=== PATIENT | male | born 1975 | race Caucasian/White ===

== ENCOUNTER 2021-10-09 09:38 | Emergency (ER) | payer SELFPAY ==
[2021-10-09 09:47] VITALS: BP 148/92; PULSE 88; RESP 15; TEMP 36.4; O2SAT 100; BMI 25.1
--- NOTE | 2021-10-09 09:52 | XRR_ITS ---
PROCEDURE INFORMATION: Exam: XR Left Ankle Exam date and time: 10/09/2021 10:03 AM Age: 46 years old Clinical indication: Injury or trauma; Fall; Blunt trauma; Ankle; Left TECHNIQUE: Imaging protocol: Radiologic exam of the Left ankle. Views: 3 or more views. AP Oblique Lateral COMPARISON: No relevant prior studies available. FINDINGS: Bones/joints: Some osseous irregularity is seen in the posterior aspect of the distal tibia on the lateral view, which may represent a nondisplaced fracture or sequela of old trauma. Recommend correlation with clinical findings. There are no medial or lateral malleolar fractures seen. Comminuted mid calcaneus fracture is seen with extension into the mid subtalar joint. There is [address] may be performed for complete assessment. The tibiotalar joint appears unremarkable. The mortise is normal. The distal tibia-fibular alignment is unremarkable. Soft tissues: There is mild hindfoot region soft tissue swelling, lateral greater than medial. There are no radiopaque foreign bodies. XR/XR ankle LT min 3V* [id number] IMPRESSION: 1. Comminuted mid calcaneus fracture with extension into the mid subtalar joint. [address] may be performed for complete assessment. 2. Some osseous irregularity seen in the posterior aspect of the distal tibia on the lateral view, which may represent a nondisplaced fracture or sequela of old trauma. Recommend correlation with clinical findings.
--- NOTE | 2021-10-09 09:52 | XRR_ITS ---
PROCEDURE INFORMATION: Exam: XR Left Foot Exam date and time: 10/09/2021 10:03 AM Age: 46 years old Clinical indication: Injury or trauma; Fall; Blunt trauma; Foot; Left TECHNIQUE: Imaging protocol: Radiologic exam of the Left foot. Views: 3 or more views. AP Oblique Lateral COMPARISON: No relevant prior studies available. FINDINGS: Bones/joints: Comminuted, complex mid to posterior calcaneal fracture is seen with fracture lines extending into the mid and posterior subtalar joint regions. There is 4 mm plantar displacement/depression in the region of the mid subtalar joint. There appears to be fracture line extension into the calcaneocuboid joint. Recommend CT for further assessment. The toe interphalangeal joints, tarsometatarsal joints, metatarsophalangeal joints appear unremarkable. Curvilinear 0.15 x 0.8 cm osseous body is seen at the posterior aspect of the distal tibia, which may represent a minimally displaced fracture. Soft tissues: There is mild hindfoot region soft tissue swelling. There are no radiopaque foreign bodies. Notes: If there is further concern, recommend follow-up radiographs or MRI for complete assessment. XR/XR foot LT min 3V* [id number] IMPRESSION: 1. Comminuted, complex, displaced intra-articular calcaneal fracture, as noted above. Recommend CT for further assessment. 2. Curvilinear 0.15 x 0.8 cm osseous body seen at the posterior aspect of the distal tibia, which may represent a minimally displaced fracture.
--- NOTE | 2021-10-09 09:53 | W.ED.FALL ---
HPI - Fall General: Chief Complaint: Extremity Injury, Lower Stated Complaint: fall, ankle injury Time Seen by Provider: 10/09/21 09:49 Source: patient Mode of arrival: ambulatory Limitations: no limitations History of Present Illness: This patient presents to our emergency department because of concern about a left ankle and foot injury. He states he was standing on a ladder about 10 feet off the ground lost balance and fell to the ground. He states he landed on his feet but twisted his left ankle and foot over and it is painful to bear weight and he feels a popping sensation. He denies any other injury. He does not strike his head or suffer loss of consciousness. There was no syncope preceding his fall. He has had a prior injury to the left ankle and wore a cam boot previously but no other significant injuries. MD complaint: fall Fall from: from height (distance) (10') Place fall occurred: home Loss of consciousness: None Location of injury - extremities: Left: ankle and foot Severity: moderate Associated symptoms-after fall: Reports difficulty walking; Denies chest pain, headache(s) or neck pain Review of Systems Const: Denies: fever(s) or chills Eyes: Denies: change in vision ENMT: Denies: odynophagia, mouth pain, change in hearing or nasal congestion Card: Denies: chest pain, palpitations, irregular heart rhythm or syncope Resp: Denies: dyspnea GI: Denies: nausea, vomiting or diarrhea : Denies: flank pain, difficulty urinating or dysuria Musc: Denies: neck pain or back pain Skin/Breast: Denies: rash or skin tenderness Neuro: Reports: difficulty walking; Denies: headache(s), numbness in extremities or weakness in extremities [place]/Lymph: Denies: easy bruising or easy bleeding Physical Exam Narrative: EXAM NARRATIVE: Patient is alert makes good eye contact speech is goal-directed. In no acute distress. Const: COMMON NORMALS: no acute distress, patient oriented x3 and alert HENMT: COMMON NORMALS: normocephalic, atraumatic and Normal nasal mucous membranes and turbinates present HEAD & SCALP: normocephalic and atraumatic FACE & SINUS: normal facial exam NOSE: Normal nasal mucous membranes and turbinates present Eye: COMMON NORMALS: Equal, round and reactive pupils present, EOMs intact bilaterally and conjunctivae normal CONJUNCTIVA: Yes conjunctivae normal PUPIL: Yes Equal, round and reactive pupils present Neck/C-Spine: CERVICAL SPINE: Yes cervical ROM normal, No Cervical spine tenderness, No step off deformity and No Paracervical spasm Chest: COMMONS NORMALS: normal inspection of the chest Resp: COMMON NORMALS: normal respiratory effort EFFORT & INSPECTION: Yes able to speak in complete sentences Cardio: COMMON NORMALS: regular rate and Peripheral pulses 2+ throughout RATE: regular rate PERIPHERAL PULSES: Peripheral pulses 2+ throughout : COMMON NORMALS: Yes no CVA tenderness BLADDER/KIDNEY EXAM: Yes no CVA tenderness Back/Pelvis: COMMON NORMALS: no CVA tenderness, thoracic and lumbar spine normal to inspection, no thoracic nor lumbar tenderness and thoraco-lumbar ROM normal PELVIS: Yes no pain with anterior-posterior compression and Yes no pain with lateral compression SACROILIAC JOINTS: Yes SI joints normal Extremity: LEFT LOWER EXTREMITY: Yes ankle joint (Tenderness over the ankle mortise region. No deformity.) and Yes foot & digits (Tender over the posterior foot. No deformity. No ecchymosis. No effusion) Neuro: COMMON NORMALS: patient oriented x3, moves all extremities, no focal motor deficits and no sensory deficits noted SENSORIUM/ORIENTATION: Yes alert Course Reevaluation(s): Reevaluation #1: X ray of the calcaneus noted. CT was ordered. Again axial spine was reexamined he Delmi has no tenderness in his axial spine. Normal range of motion. Time: 10:56 Consultations: Consultation #1: Discussed case with Dr. Alfonso who is on-call for orthopedics. We will go ahead and place in a posterior splint and send a consultation for case management for Dr. Vora to see patient and plan on operative repair per Dr. Alfonso. Time: 12:21 Vital Signs: Vital signs: Vital Signs Temperature 97.6 F 10/09/21 09:47 Pulse Rate 85 10/09/21 09:54 Respiratory Rate 15 10/09/21 09:47 Blood Pressure 161/97 10/09/21 10:31 Pulse Oximetry 100 10/09/21 09:47 MDM - Fall Medical Decision Making Patient with a fall from height approximately 10 feet with injury to his left foot. Initial plain film showed suggestion of calcaneal fracture which was confirmed by CT. Patient has no evidence clinically of any spinal involvement. He Apsley has no axial spine tenderness from cervical to sacrum. Is able to move extire spine without any pain or discomfort. Likelihood of axial spine injury is low at this point and this was shared with the patient. I also shared with the patient that he will need operative repair on a delayed fashion. We will go ahead and place him in a posterior splint and nonweightbearing status in case management will provide follow-up management. Medical Records I reviewed the patient's medical records. Lab Data Radiology Impressions Ankle X-Ray 10/09/21 09:52 IMPRESSION: 1. Comminuted mid calcaneus fracture with extension into the mid subtalar joint. [address] may be performed for complete assessment. 2. Some osseous irregularity seen in the posterior aspect of the distal tibia on the lateral view, which may represent a nondisplaced fracture or sequela of old trauma. Recommend correlation with clinical findings. Foot X-Ray 10/09/21 09:52 IMPRESSION: 1. Comminuted, complex, displaced intra-articular calcaneal fracture, as noted above. Recommend CT for further assessment. 2. Curvilinear 0.15 x 0.8 cm osseous body seen at the posterior aspect of the distal tibia, which may represent a minimally displaced fracture. Foot CT 10/09/21 10:48 IMPRESSION: 1. Comminuted calcaneal fracture with mild displacement of the fracture fragments with articular involvement at the subtalar joint. 2. Soft tissue swelling seen about the calcaneus. Discharge Plan Discharge Patient Disposition: Home Clinical Impression: Closed fracture of left calcaneus Condition: Stable Prescriptions: New hydrocodone-acetaminophen 5-325 mg tablet 1 tab PO Q8H PRN (Reason: pain) Qty: 14 0RF ondansetron 4 mg tablet,disintegrating 4 mg PO Q8H PRN (Reason: nausea and vomiting) Qty: 14 0RF Discharge Orders: Discharge ED (Routine); Ordered 10/09/21 Ordered By: Forrest Young Referrals: Milton Vora MD [Referring] - (calcaneal fracture) Jayden Arreola MD [Primary Care Provider] - Discharge Diet: Usual diet Discharge Activity: Use walker/crutches as instructed Patient Instructions: Opioid Safety Activity Restrictions/Additional Instructions: Do not get your splint wet. Use crutches as as you should not bear weight on your left foot. Case management will be contacting you on Monday to discuss referral to Dr. Vora the orthopedic surgeon. If you develop any increasing pain or other concerns return to this emergency department. We have provided medication for pain and nausea. Coding Level of Care Code ED Master Data Analyst for Odellg Fwd Exam Comprehensive
[2021-10-09 09:54] VITALS: PULSE 85
[2021-10-09 10:31] VITALS: BP 161/97
--- NOTE | 2021-10-09 10:48 | CTR_ITS ---
PROCEDURE INFORMATION: Exam: CT Left Lower Extremity Without Contrast, Foot Exam date and time: 10/09/2021 11:19 AM Age: 46 years old Clinical indication: Injury or trauma; Fall; Blunt trauma; Heel; Left; Additional info: Calcaneal injury TECHNIQUE: Imaging protocol: CT of the Left lower extremity without contrast was performed. Exam focused on the foot. Radiation optimization: All CT scans at this facility use at least one of these dose optimization techniques: automated exposure control; mA and/or kV adjustment per patient size (includes targeted exams where dose is matched to clinical indication); or iterative reconstruction. COMPARISON: CR (LOW EXM, ) 10/09/2021 10:03 AM RADIATION DOSE METRICS: Total DLP (mGy-cm): 148.72 FINDINGS: Bones/joints: Comminuted calcaneal fracture with mild displacement of the fracture fragments with articular involvement at the subtalar joint. Soft tissues: Soft tissue swelling seen about the calcaneus. CT/CT foot LT wo con* [id number] IMPRESSION: 1. Comminuted calcaneal fracture with mild displacement of the fracture fragments with articular involvement at the subtalar joint. 2. Soft tissue swelling seen about the calcaneus.
[2021-10-09] MEDS: ondansetron 4 MG Tablet PO (10:56)
[2021-10-09] MEDS: HYDROcodone-acetaminophen 7.5-325 mg Tablet 1 TAB PO (10:56)
[2021-10-09 12:44] VITALS: BP 124/85; PULSE 88; RESP 16; TEMP 37.1; O2SAT 98
--- NOTE | 2021-10-11 11:29 | DCPLANNER ---
Addendum entered by Danielle Arana 10/19/21 13:59: Patient had a follow up appointment scheduled for 10.12.[address] Vora at ortho - patient did attend appointment. Original Note: manager of maintenance had message to schedule a follow up appointment for patient with ortho. manager of maintenance sent patients information to the front office staff at ortho. Patients information will be printed and reviewed. Clinic will call patient with appointment information.
== END 2021-10-09 12:46 | disposition home or self-care (01) ==
PROVIDERS: Emergency Provider Emergency Medicine; PCP Family Medicine
DX: S92.002A Unspecified fracture of left calcaneus, initial encounter for closed fracture (principal); W11.XXXA Fall on and from ladder, initial encounter
CPT/HCPCS: 29515; 73610; 73630; 73700; 99285; E0114; Q0162

== ENCOUNTER 2021-10-12 14:03 | Outpatient (CLI) | payer SELFPAY | END 2021-10-12 14:04 | disposition home or self-care (01) | LOC: SPT 14:04 | PROVIDERS: PCP Family Medicine; Visit Provider Podiatrist Foot & Ankle Surgery | DX: Z46.89 Encounter for fitting and adjustment of other specified devices (principal); S92.002D Unspecified fracture of left calcaneus, subsequent encounter for fracture with routine healing; X58.XXXD Exposure to other specified factors, subsequent encounter | CPT/HCPCS: 97760; L4361 ==

== ENCOUNTER → 2021-10-28 15:28 | Outpatient (BNVA) | payer SELFPAY | PROVIDERS: PCP Family Medicine; Visit Provider Podiatrist Foot & Ankle Surgery | DX: S92.002A Unspecified fracture of left calcaneus, initial encounter for closed fracture (principal); X58.XXXA Exposure to other specified factors, initial encounter | CPT/HCPCS: 73650 ==

== ENCOUNTER → 2021-11-18 14:46 | Outpatient (BNVA) | payer SELFPAY | PROVIDERS: PCP Family Medicine; Visit Provider Podiatrist Foot & Ankle Surgery | DX: S82.392D Other fracture of lower end of left tibia, subsequent encounter for closed fracture with routine healing (principal); W11.XXXD Fall on and from ladder, subsequent encounter | CPT/HCPCS: 73650 ==

== ENCOUNTER → 2021-12-09 13:58 | Outpatient (BNVA) | payer SELFPAY | PROVIDERS: PCP Family Medicine; Visit Provider Podiatrist Foot & Ankle Surgery | DX: S82.392A Other fracture of lower end of left tibia, initial encounter for closed fracture (principal); W11.XXXA Fall on and from ladder, initial encounter; S92.002A Unspecified fracture of left calcaneus, initial encounter for closed fracture | CPT/HCPCS: 73650 ==

== ENCOUNTER 2023-04-24 14:32 | Inpatient (IN) | payer SELFPAY ==
[2023-04-24] VITALS (11 sets, daily range): BP systolic 137–189; BP diastolic 92–124; PULSE 72–121; RESP 12–18; TEMP 36.4–36.9; O2SAT 97–100; BMI 24.3
--- NOTE | 2023-04-24 14:34 | XRR_ITS ---
PROCEDURE INFORMATION: Exam: XR Chest Exam date and time: 04/24/2023 3:18 PM Age: 47 years old Clinical indication: Pain; Angina pectoris; Additional info: Cp TECHNIQUE: Imaging protocol: Radiologic exam of the chest. Views: 1 view. COMPARISON: No relevant prior studies available. FINDINGS: Lungs: Peribronchial wall thickening. No consolidation. Pleural spaces: Unremarkable. No pleural effusion. No pneumothorax. Heart/Mediastinum: Unremarkable. No cardiomegaly. Bones/joints: Unremarkable. XR/XR chest 1V portable [id number] IMPRESSION: Peribronchial wall thickening suggestive of an infectious or inflammatory bronchitis.
--- NOTE | 2023-04-24 14:34 | ECG_ITS ---
[facility] Test Date: 2023-04-24 Pat Name: Dennis Ruelas Department: Room: Gender: Male Group Work Program Director: : 1975 Requested By: Obi Bowser Order Number: [id number] Dyana MD: Mich Cooley M.D. Measurements Intervals [place] Rate: 116 P: 74 MO: 143 QRS: 65 QRSD: 93 T: 73 QT: 331 QTc: 461 Interpretive Statements SINUS TACHYCARDIA POSSIBLE LEFT ATRIAL ENLARGEMENT [-0.1mV P-WAVE IN V1/V2] SEPTAL MYOCARDIAL INFARCTION , OF INDETERMINATE AGE [40+ ms Q WAVE IN V1/V2] No previous ECG available for comparison Electronically Signed On 04-24-2023 19:29:34 LINER REROLL TENDER by Mich Cooley M.D. [id number]
[2023-04-24 15:04] LABS: Basophils # 0.1 10^3/uL (0.0-0.1); Basophils % 0.6 %; Eosinophils # 0.1 10^3/uL (0.0-0.8); Eosinophils % 1.7 %; Hematocrit 47.3 % (37-53); Lymphocytes # 2.4 10^3/uL (0.8-4.8); Lymphocytes % 30.2 %; Mean Corpuscular HGB Conc 33.4 g/dL (30-55); Mean Corpuscular Hemoglobin 30.7 pg (27-33); Mean Corpuscular Volume 91.8 fl (82-101); Mean Platelet Volume 9.5 fL (7.4-10.4); Monocytes # 0.8 10^3/uL (0.2-0.9); Monocytes % 9.9 %; Neutrophils # 4.62 10^3/uL (1.8-7.7); Neutrophils % 57.2 %; Nucleated Red Blood Cells % 0 %; Platelet Count 232 10^3/cmm (157-399); Red Blood Count 5.15 10^6/uL (3.85-5.65); White Blood Count 8.08 10^3/uL (3.29-11.43)
[2023-04-24 15:25] LABS: Troponin(5th) Baseline 972 ng/L (0-15)
--- NOTE | 2023-04-24 15:34 | ECG_ITS ---
[facility] Test Date: 2023-04-24 Pat Name: Dennis Ruelas Department: Room: Gender: Male Operations And Maintenance Technican: : 1975 Requested By: Yonis Henderson Order Number: [id number] Dyana MD: Mich Cooley M.D. Measurements Intervals [place] Rate: 111 P: 60 [place]: 142 QRS: 61 QRSD: 91 T: 75 QT: 337 QTc: 459 Interpretive Statements SINUS TACHYCARDIA POSSIBLE LEFT ATRIAL ENLARGEMENT [-0.1mV P-WAVE IN V1/V2] SEPTAL MYOCARDIAL INFARCTION , PROBABLY OLD [40+ ms Q WAVE IN V1/V2] Compared to ECG 04/24/2023 14:41:39 No significant changes Electronically Signed On 04-24-2023 19:29:42 CASH REGISTER OPERATOR by Mich Cooley M.D. [id number]
--- NOTE | 2023-04-24 15:37 | CTR_ITS ---
PROCEDURE INFORMATION: Exam: CTA Chest With Contrast Exam date and time: 04/24/2023 5:09 PM Age: 47 years old Clinical indication: Pain; Chest pressure; Additional info: Cp TECHNIQUE: Imaging protocol: Computed tomographic angiography of the chest with contrast. Exam focused on the arteries. 3D rendering (Not supervised by radiologist): MIP and/or 3D reconstructed images were created by the technologist. Radiation optimization: All CT scans at this facility use at least one of these dose optimization techniques: automated exposure control; mA and/or kV adjustment per patient size (includes targeted exams where dose is matched to clinical indication); or iterative reconstruction. Contrast material: OMNI 350; Contrast volume: 100 ml; Contrast route: INTRAVENOUS (IV); COMPARISON: CR XR chest 1V portable [id number] 04/24/2023 3:18 PM RADIATION DOSE METRICS: Total DLP (mGy-cm): 336 FINDINGS: Pulmonary arteries: Normal. No pulmonary emboli. Aorta: Unremarkable. No aortic aneurysm. No aortic dissection. Lungs: Sjun-es-rnlqzyjq emphysematous changes at the lung apices. Posterior dependent atelectasis. No consolidation. No masses. Mild peribronchial wall thickening. Pleural spaces: Unremarkable. No pneumothorax. No pleural effusion. Heart: Unremarkable. No cardiomegaly. No pericardial effusion. Lymph nodes: Unremarkable. No enlarged lymph nodes. Bones/joints: Unremarkable. No acute fracture. Soft tissues: Unremarkable. CT/CT angio chest PE protcl [id number] IMPRESSION: Mild peribronchial wall thickening/bronchitis. Apna-hi-adwwmwsa emphysematous changes at the lung apices.
--- NOTE | 2023-04-24 15:38 | ED_ITS ---
HPI - Chest Pain 2 General: Chief Complaint: Chest Pain Stated Complaint: chest pain, sob Time Seen by Provider: 04/24/23 15:31 Source: patient Mode of arrival: ambulatory Limitations: no limitations History of Present Illness: 47-year-old male states that he has been having chest pain over the last 4 to 5 days he states he was in [place] over the weekend and went to hospital told that his troponin was high but he left AMA. States continue to have some slight pain states pain is currently 3 out of 10 denies any shortness of breath he is tachycardic here denies any worsening proving factors no history of coronary artery disease he does have hypertension and is a smoker. PFSH ED 2 PFSH: Social History Smoking and tobacco/nicotine status: current every day tobacco/nicotine user Course 2 Vital Signs: Vital signs: Vital Signs Temperature 97.5 F L 04/24/23 14:45 Pulse Rate 93 04/24/23 15:50 Respiratory Rate 16 04/24/23 15:50 Blood Pressure 189/111 04/24/23 15:50 Pulse Oximetry 97 04/24/23 15:50 Oxygen Delivery Me thod Room Air 04/24/23 14:45 MDM - Chest Pain Medical Decision Making Patient presents here with chest pain does have an elevated troponin consistent with an NSTEMI. Patient's chest pain-free here CT shows no signs of PE will admit for NSTEMI start on Lovenox I did speak to the digital forensics examiner along with hospitalist Medical Records I reviewed the patient's medical records. Lab Data I reviewed the patient's lab results. 04/24/23 14:58 04/24/23 14:58 Radiology Impressions Chest X-Ray 04/24/23 14:34 IMPRESSION: Peribronchial wall thickening suggestive of an infectious or inflammatory bronchitis. Chest CTA 04/24/23 15:37 IMPRESSION: Mild peribronchial wall thickening/bronchitis. Dgph-am-ijuxkgrs emphysematous changes at the lung apices. Laboratory Results WBC 8.08 10^3/uL (3.29-11.43) 04/24/23 14:58 RBC 5.15 10^6/uL (3.85-5.65) 04/24/23 14:58 Hgb 15.80 g/dL (11.27-16.99) 04/24/23 14:58 Hct 47.3 % (37-53) 04/24/23 14:58 MCV 91.8 fl (82-101) 04/24/23 14:58 MCH 30.7 pg (27-33) 04/24/23 14:58 MCHC 33.4 g/dL (30-55) 04/24/23 14:58 RDW 14.0 % (12.1-15.1) 04/24/23 14:58 Plt Count 232 10^3/cmm (157-399) 04/24/23 14:58 MPV 9.5 fL (7.4-10.4) 04/24/23 14:58 Neut % (Auto) 57.2 % 04/24/23 14:58 Lymph % (Auto) 30.2 % 04/24/23 14:58 Pike % (Auto) 9.9 % 04/24/23 14:58 Eos % (Auto) 1.7 % 04/24/23 14:58 Baso % (Auto) 0.6 % 04/24/23 14:58 Neut # (Auto) 4.62 10^3/uL (1.8-7.7) 04/24/23 14:58 Lymph # (Auto) 2.4 10^3/uL (0.8-4.8) 04/24/23 14:58 Pike # (Auto) 0.8 10^3/uL (0.2-0.9) 04/24/23 14:58 Eos # (Auto) 0.1 10^3/uL (0.0-0.8) 04/24/23 14:58 Baso # (Auto) 0.1 10^3/uL (0.0-0.1) 04/24/23 14:58 Nucleated RBC % (auto) 0 % 04/24/23 14:58 Nucleated RBCs # 0.0 /100WBC 04/24/23 14:58 PT 12.40 SECONDS (12.1-14.9) 04/24/23 14:58 INR 0.90 (0.8-1.2) 04/24/23 14:58 Sodium 136 mmol/L (136-145) 04/24/23 14:58 Potassium 3.5 mmol/L (3.5-5.1) 04/24/23 14:58 Chloride 100 mmol/L (98-107) 04/24/23 14:58 Carbon Dioxide 21 mmol/L (22-29) L 04/24/23 14:58 Anion Gap 18.5 (5-19) 04/24/23 14:58 BUN 12 mg/dL (6-20) 04/24/23 14:58 Creatinine 0.9 mg/dL (0.7-1.2) 04/24/23 14:58 GFR Calculation 90.4 mL/min (90-130) 04/24/23 14:58 Glucose 111 mg/dL (65-115) 04/24/23 14:58 Calculated Osmolality 282 mOsm/kg (285-295) L 04/24/23 14:58 Calcium 9.0 mg/dL (8.5-10.5) 04/24/23 14:58 Total Bilirubin 0.4 mg/dL (0.15-1.2) 04/24/23 14:58 AST 26 U/L (0-40) 04/24/23 14:58 ALT 21 U/L (0-41) 04/24/23 14:58 Alkaline Phosphatase 152 U/L (40-130) H 04/24/23 14:58 Troponin T Baseline 972 ng/L (0-15) H* 04/24/23 14:58 NT-Pro-B Natriuret Pep 1422 pg/mL (0-125) H 04/24/23 14:58 Total Protein 6.9 g/dL (6.6-8.7) 04/24/23 14:58 Albumin 3.8 g/dL (3.5-5.2) 04/24/23 14:58 Globulin 3.1 g/dL (1.3-4.6) 04/24/23 14:58 All radiology interpretation(s) finalized by discharge EKG Data EKG 1: I personally reviewed and interpreted this EKG as follows: EKG interpretation date: 04/24/23 EKG interpretation time: 14:41 Interpretation: sinus tach hr [address] or t wave abnormalities qrs 93 qtc 400 EKG 2: I personally reviewed and interpreted this EKG as follows: EKG interpretation date: 04/24/23 EKG interpretation time: 15:34 Interpretation: sinus tach no st elevation qrs 91 qtc 403 EKG 3: I personally reviewed and interpreted this EKG as follows: EKG interpretation date: 04/24/23 EKG interpretation time: 16:34 Interpretation: nsr hr [address] elevation qrs 97 qtc 409 Discharge Plan Discharge Patient Disposition: Admitted As Inpatient Admit Provider: Pino Ward Clinical Impression: Non-ST elevation SC (NSTEMI) Condition: Stable Coding Level of Care Code ED Engineering Faculty for Jayla Howard
[2023-04-24 15:42] LABS: Alanine Aminotransferase 21 U/L (0-41); Albumin Level 3.8 g/dL (3.5-5.2); Alkaline Phosphatase 152 U/L (40-130); Anion Gap 18.5 (5-19); Aspartate Amino Transferase 26 U/L (0-40); Blood Urea Nitrogen 12 mg/dL (6-20); Carbon Dioxide 21 mmol/L (22-29); Chloride 100 mmol/L (98-107); Globulin 3.1 g/dL (1.3-4.6); Glomerular Filtration Rate 90.4 mL/min (90-130); Glucose 111 mg/dL (65-115); NT Pro B Type Natriuretic Pept 1422 pg/mL (0-125); Osmolality Calculated 282 mOsm/kg (285-295); Potassium 3.5 mmol/L (3.5-5.1); Sodium 136 mmol/L (136-145); Total Bilirubin 0.4 mg/dL (0.15-1.2); Total Protein 6.9 g/dL (6.6-8.7)
[2023-04-24] MEDS: labetalol 5 mg/mL SDV 20mL 10 MG IVP (15:56)
--- NOTE | 2023-04-24 16:17 | PC.PHAR ---
pt states he takes no prescription medications-pt states he only buys nexium 20mg otc states he takes 2 cap daily pt states 4 days ago he started taking aspirin 325mg daily when he started having chest pains-pt states today he took 2 tabs (650mg)of aspirin for the chest pains 04/24/23
--- NOTE | 2023-04-24 16:34 | ECG_ITS ---
[facility] Test Date: 2023-04-24 Pat Name: Dennis Ruelas Department: Room: Gender: Male Director Cardiovascular: : 1975 Requested By: Obi Bowser Order Number: [id number] Dyana MD: Mich Cooley M.D. Measurements Intervals [place] Rate: 88 P: 119 [place]: 151 QRS: 53 QRSD: 97 T: 116 QT: 364 QTc: 441 Interpretive Statements SINUS RHYTHM POSSIBLE LEFT ATRIAL ENLARGEMENT [-0.1mV P-WAVE IN V1/V2] INCOMPLETE RIGHT BUNDLE BRANCH BLOCK [90+ ms QRS DURATION, TERMINAL R IN V1/V2, 40+ ms S IN I/aVL/V4/V5/V6] SEPTAL MYOCARDIAL INFARCTION , OF INDETERMINATE AGE [40+ ms Q WAVE IN V1/V2] POSSIBLE LATERAL MYOCARDIAL INFARCTION , OF INDETERMINATE AGE [30 ms Q WAVE IN I/aVL/V5/V6] Compared to ECG 04/24/2023 15:34:30 Incomplete right bundle-branch block now present Sinus tachycardia no longer present Myocardial infarct finding still present Electronically Signed On 04-24-2023 19:37:35 CHRISTMAS TREE GROWER by Mich Cooley M.D. [id number]
[2023-04-24] MEDS: iohexol 350 mg/mL 500 mL Btl (per mL) IV (17:39)
[2023-04-24] MEDS: enoxaparin 80 mg/0.8 mL Syringe SUBCUT (18:20)
[2023-04-24 18:29] LABS: Troponin 5 2HR 998.6 ng/L (0-15); Troponin 5 2HR Delta 26.6 ABS# (0-10)
--- NOTE | 2023-04-24 19:24 | P.HP_ITS ---
Providers/Chief Complaint 2 Admitting Physician: Pino Ward Primary Care Provider: Jayden Arreola Chief Complaint: chest pain, sob History of Present Illness 47-year-old gentleman with history of pancreatitis, presented to ER after recent visit to the ER during his trip in [place] where he was having chest pain across his chest to the left shoulder and neck and right shoulder. Reports troponin was elevated during ER visit, however, he did not know anybody there and states had left the hospital prematurely before getting additional workup done. He states that he had delayed coming in initially thinking that it was his pancreatitis flaring up, but states that lipase was checked in the other hospital and was normal. He is currently having some mild nausea, denies vomiting. He is not having the severe pain he was seen before some mild residual dull ache only, centrally located. In ER he is found to have severe elevation of troponin up into the high 900s he is hypertensive, presentation with sinus tachycardia. CT angiogram chest without PE, discussed with him some finding of peribronchial thickening/bronchitis like findings. He states he has got some chronic cough with smoking, this has not been worse than usual. Review of Systems 2 Const: Denies: fever(s), chills, body aches or malaise Eyes: Denies: change in vision Card: Reports: chest pain; Denies: edema, pre-syncope or dyspnea on exertion Resp: Reports: productive cough (Chronic smoker's cough in the morning); Denies: dyspnea, change in phlegm color or hemoptysis GI: Denies: abdominal pain, nausea, vomiting, diarrhea, constipation, hematochezia or melena : Denies: flank pain, difficulty urinating, urinary frequency or hematuria Musc: Denies: back pain, joint swelling or joint redness Skin/Breast: Denies: rash or new lesions Neuro: Denies: headache(s), numbness in extremities, weakness in extremities, dizziness, confusion or seizure-like activity Medications/Allergies Home Medications Medication Instructions Recorded Confirmed Last Taken Type Cam Boot to the Left #1 ea 10/12/21 04/24/23 Unknown Rx aspirin 325 mg tablet 325 mg PO QAM 04/24/23 04/24/23 04/24/23 History 650 mg esomeprazole magnesium 20 mg 40 mg PO QAM 04/24/23 04/24/23 04/24/23 History capsule,delayed release (Nexium) Allergies Allergy/AdvReac Type Severity Reaction Status Date / Time No Known Allergies Allergy Verified 04/24/23 14:44 PFSH Acute 2 PFSH: Medical History History of biliary stent insertion Pancreatitis Surgical History Hx of cholecystectomy Social History Smoking and tobacco/nicotine status: current every day tobacco/nicotine user Alcohol intake: never Substance/Drug Use: never Marital status: Single Vitals/I&O/Wt Last Vital Signs Temp 97.5 F L 04/24/23 14:45 Pulse 93 04/24/23 15:50 Resp 16 04/24/23 15:50 BP 189/111 04/24/23 15:50 Pulse Ox 97 04/24/23 15:50 O2 Del Method Room Air 04/24/23 14:45 Weight last 48 hrs Weight 77.111 kg Physical Exam 2 Narrative: Accompanied by family including his brother, mother Const: COMMON NORMALS: patient oriented x3 and alert GENERAL APPEARANCE: c ooperative ORIENTATION/CONSCIOUSNESS: Yes awake HENMT: COMMON NORMALS: oropharynx normal Neck/C-Spine: COMMON NORMALS: no JVD Resp: COMMON NORMALS: normal respiratory effort and clear to auscultation bilaterally AUSCULTATION: clear to auscultation bilaterally Cardio: COMMON NORMALS: no JVD, regular rhythm, S1 normal heart sound present, S2 normal heart sound present and No murmurs present (Cardio) RHYTHM: regular rhythm HEART SOUNDS: S1 normal heart sound present and S2 normal heart sound present GI: COMMON NORMALS: Normal to inspection, nondistended, normoactive bowel sounds present, Soft to palpation and non-tender PALPATION: Yes Soft to palpation Extremity: COMMON NORMALS: no joint enlargement and no pedal edema Neuro: COMMON NORMALS: patient oriented x3 and moves all extremities S ENSORIUM/ORIENTATION: Yes alert Skin: COMMON NORMALS: no rashes or lesions noted GENERAL SKIN EXAM: no rashes or lesions noted Data 04/24/23 14:58 01/29/24 14:58 A&P Assessment and plan (1) Non-ST elevation SC (NSTEMI): Severely elevated troponin. Currently pain-free, dull ache still present. Nitroglycerin added as needed. Treat hypertension, received labetalol, will start metoprolol. Monitor blood pressures. Cardiac diet. N.p.o. after midnight. Reviewed vitals, CBC, INR, CMP, troponin series, NT proBNP, requesting lipase. Reviewed chest x-ray, CTA. Reviewed ER documentation, discussed with ER physician. Discussed with sole splitter. Requesting TTE. Monitor on telemetry. Complete troponin EKG series. Has received aspirin, Lovenox, continue. Add beta-ericka, statin. N.p.o. for consideration of coronary angiogram in the morning. At risk of arrhythmia, monitor on telemetry. Denies any melena, hematochezia, hematuria, or bleeding. At risk of bleeding with anticoagulation. Monitor. Reassess CBC. Continue to encourage smoking cessation. (2) Bronchitis: Possible bronchitis with parabronchial thickening. He reports some chronic morning smoker's cough, otherwise denies any worsening. Will obtain respiratory viral panel with recent travel. No leukocytosis, no fever. No antibiotic at this time. Little butyryl breathing treatments as needed. (3) Smoking addiction: Discussed smoking cessation for 4 minutes, encourage cessation with risk of cardiovascular disease, heart attack, stroke, lung disease, cancer, other complications. He has not been ready to quit yet. Discussed with him we will provide nicotine replacement should he needed due to cravings. Plan History of pancreatitis: Requesting lipase. Reports recently lipase done at [facility]rosc[facility] was not elevated. Discussed with him in case of biliary pancreatitis, stent malfunction or other problems requiring intervention this cannot be done at this hospital and would require transfer, which she states he understands. History of cholecystectomy, biliary duct stent: Reviewed liver parameters, T. bili is normal. Alk phos with some elevation 152. No right upper quadrant pain. Minimal epigastric tenderness. Attestations 2 Medical Necessity Statement*: Admission of over 2 midnights anticipated for assessment management of NSTEMI. Diagnoses Non-ST elevation SC (NSTEMI) I21.4 Bronchitis J40 Smoking addiction F17.200
[2023-04-24 19:54] LABS: Magnesium 1.9 mg/dL (1.7-2.3)
[2023-04-24 20:09] LABS: Lipase 29 U/L (13-60)
[2023-04-24] MEDS: metoprolol tartrate 25 mg Tablet PO (20:54)
[2023-04-24] MEDS: atorvastatin 40 mg Tablet PO (20:54)
[2023-04-24 20:59] LABS: Troponin 5 6HR 823.8 ng/L (0-15)
--- NOTE | 2023-04-24 21:08 | ECG_ITS ---
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 Measurements Intervals [place] Rate: 85 P: 55 ND: 159 QRS: 54 QRSD: 96 T: 66 QT: 376 QTc: 449 Interpretive Statements SINUS RHYTHM SEPTAL MYOCARDIAL INFARCTION , PROBABLY OLD [40+ ms Q WAVE IN V1/V2] Compared to ECG 04/24/2023 16:34:56 Incomplete right bundle-branch block no longer present Myocardial infarct finding still present Electronically Signed On 04-25-2023 18:34:42 UNDERCOLLAR MAKER by Beni Wong M.D. [email or web address] [email or web address] [email or web address] [id number]
[2023-04-24 21:10] LABS: Amphetamines Screen Urine Negative (Negative); Barbiturates Screen Urine Negative (Negative); Benzodiazepines Screen Urine Negative (Negative); Cocaine Screen Urine Negative (Negative); Opiate Screen Urine Negative (Negative); PCP Screen Urine Negative (Negative); THC Screen Urine Negative (Negative)
[2023-04-24 21:59] LABS: Adenovirus Not Detected (NOT DETECT); Chlamydia Pneumoniae Not Detected (NOT DETECT); Coronavirus 229E,HKU1,NL63,OC4 Not Detected (NOT DETECT); Human Metapneumovirus Not Detected (NOT DETECT); Human Rhinovirus/Enterovirus Not Detected (NOT DETECT); Influenza A Not Detected (NOT DETECT); Influenza A H1 Not Detected (NOT DETECT); Influenza A H1-2009 Not Detected (NOT DETECT); Influenza A H3 Not Detected (NOT DETECT); Influenza B Not Detected (NOT DETECT); Mycoplasma Pneumoniae Not Detected (NOT DETECT); Parainfluenza Virus Type 1 Not Detected (NOT DETECT); Parainfluenza Virus Type 2 Not Detected (NOT DETECT); Parainfluenza Virus Type 3 Not Detected (NOT DETECT); Parainfluenza Virus Type 4 Not Detected (NOT DETECT); Respiratory Syncytial Virus A Not Detected (NOT DETECT); Respiratory Syncytial Virus B Not Detected (NOT DETECT); SARS-COV-2 Not Detected (NOT DETECT)
[2023-04-25] VITALS (48 sets, daily range): BP systolic 113–169; BP diastolic 74–113; PULSE 62–89; RESP 12–19; TEMP 36.6–37.1; O2SAT 95–100
[2023-04-25 06:19] LABS: Basophils # 0.1 10^3/uL (0.0-0.1); Basophils % 0.6 %; Eosinophils # 0.1 10^3/uL (0.0-0.8); Eosinophils % 1.5 %; Hematocrit 45.9 % (37-53); Lymphocytes # 2.1 10^3/uL (0.8-4.8); Lymphocytes % 27.6 %; Mean Corpuscular HGB Conc 33.1 g/dL (30-55); Mean Corpuscular Hemoglobin 30.5 pg (27-33); Mean Corpuscular Volume 92.2 fl (82-101); Monocytes # 0.8 10^3/uL (0.2-0.9); Monocytes % 10.3 %; Neutrophils # 4.62 10^3/uL (1.8-7.7); Neutrophils % 59.6 %; Nucleated Red Blood Cells % 0 %; Platelet Count 226 10^3/cmm (157-399); Red Blood Count 4.98 10^6/uL (3.85-5.65); Red Cell Distribution Width 14.3 % (12.1-15.1); White Blood Count 7.76 10^3/uL (3.29-11.43)
[2023-04-25 06:42] LABS: Alanine Aminotransferase 23 U/L (0-41); Albumin Level 3.3 g/dL (3.5-5.2); Alkaline Phosphatase 129 U/L (40-130); Aspartate Amino Transferase 25 U/L (0-40); Blood Urea Nitrogen 11 mg/dL (6-20); Calcium 8.7 mg/dL (8.5-10.5); Carbon Dioxide 25 mmol/L (22-29); Chloride 106 mmol/L (98-107); Globulin 3.5 g/dL (1.3-4.6); Glomerular Filtration Rate 103.6 mL/min (90-130); Glucose 94 mg/dL (65-115); Osmolality Calculated 289 mOsm/kg (285-295); Sodium 140 mmol/L (136-145); Total Bilirubin 0.5 mg/dL (0.15-1.2); Total Protein 6.8 g/dL (6.6-8.7)
--- NOTE | 2023-04-25 07:13 | XACV_ITS ---
Exam Room: [facility] Ht: 178 cm Wt: 77 kg BSA: 1.96 m2 Gender: Male : 1975 Any Known Allergies: No known allergies Exam Priority: Routine Procedure(s): Procedure Description: Diagnostic procedure Procedure Description: Left Heart Catheterization Procedure Description: Miscellaneous Procedure Description: ACT Procedure Description: Coronary Angiography Diagnostic Cath Status: Urgent Diagnostic Findings * Left Main has no significant disease. * Circumflex has no significant disease. * Right Coronary Artery has no significant disease. * Procedure detail: We obtained left system images using right radial artery access. However patient went into severe radial spasm and RCA could not be engaged. We then proceeded to perform RCA angiography with right femoral artery access. Pulse was weak. However we were able to obtain access. After sheath was inserted, blood flow was very sluggish from the sheath sideport. Hand-injection was performed that showed totally occluded external iliac artery with possible dissection. We obtained access in left common femoral artery and performed RCA angiography. As patient was given heparin and ACT was elevated, we decided to suture the right common femoral artery sheath in place and remove in the recovery area once ACT is in acceptable limits. Plan for peripheral angiogram once hemostasis is obtained. Patient denies any leg pain with warm leg. Pulses are dopplerable.. * Proximal Left Anterior Descending: minimal 30% stenosis, TUAN: 3 flow. * Coronary angiography shows right dominance. Conclusions 1. Non-obstructive CAD.. 2. VT with normal coronary arteries (MINOCA). Medical management. 3. Once sheath will be removed in the recovery area, we will bring patient back for peripheral angiogram to assess right lower extremity vasculature. Currently pulses are dopplerable, no leg pain and leg is warm. Recommendations * Aggressive medical therapy with aspirin, plavix, beta ericka and statin. * Outpatient cardiology follow up in 2 weeks. Interventional RX Recommendation: medical therapy and/or counseling Diagnostic RX Recommendation: medical therapy and/or counseling Pressures Phase:Rest AO : 133 / 90 ( 108 ) @ 8:37:00 AM 131 / 84 ( 105 ) @ 8:39:00 AM 126 / 84 ( 100 ) @ 9:17:00 AM 124 / 78 ( 99 ) @ 9:20:00 AM 125 / 78 ( 100 ) @ 9:20:00 AM LV : 137 / -11 / 10 @ 9:20:00 AM 127 / -8 / 11 @ 9:20:00 AM Valves Phase:DefaultPhase AV : 1.0 @ 9:27:27 AM AV Mean Gradient: 0.0 @ 9:27:27 AM Clinical Evaluation EBL: 5mL-10mL Procedural Details Pre-Procedure Time Out. Identified patient by full name and date of as verbalized by the patient/guarantor. Does the consent match the physician's order: Yes. Accurate & Complete Informed Consent: Yes. Inpatient/Outpatient History & Physical on Chart: Yes. If H&P is completed, is and addenduem needed: No; If yes, is the addendum complete: N/A. Visualize and Verify Site with Patient/Guarantor: N/A. Relevant Radiology Images available: Yes. Pre-op teaching completed and patient verbalized understanding. The risks, benefits, and alternatives of sedation and/or procedure were discussed by physician. The patient agrees to continue. Procedure started. Physician arrived. Current Diagnosis : NSTEMI. [facility] Clinical Fraility Score: 3: Managing Well. Child Support Officer Indications: ACS > 24 hours. Chest Pain Symptom Assessment: Atypical Angina. Correct patient, site and procedure confirmed by cath team. Current diagnosis: NSTEMI. PERRLA. Strong, equal hand retail field representative bilaterally. Lungs clear x 5 lobes. IV Site on Arrival: 20 gauge in the right anticubital. IV Fluids: 0.9% NaCl at KVO. 0 mL infused prior to laborer brush clearing. Pre Procedural Pulses: right radial was 3+. Pre Procedural Pulses: bilateral dorsalis pedis was Doppled. Pre Procedural Pulses: bilateral posterior tibial was Doppled. Oxygen started at 2liters/min via nasal canula. right groin was prepped with chloroprep then draped in the usual sterile fashion. right radial was prepped with chloroprep then draped in the usual sterile fashion. Baseline sample Acquired. HR: 91 BPM. Physician scrubbed in. Immediate Pre-Procedure Time Out. Correct Patient: Yes; Correct Procedure: Yes; Correct Site: Yes; Correct Patient Position: Yes; Correct Supplies: Yes; Dried Flammable Prep: Yes; Blood Products Available: N/A;. Lidocaine 1% infiltrated to the right radial. Arterial access obtained. A 6 sri lankan TIG catheter in over wire. Multiple views taken of left coronary artery. Catheter redirected to the RCA. Catheter removed over the exchange wire. A 5 sri lankan JR4 catheter in over wire. Catheter removed over the exchange wire. A 5 sri lankan JR4 catheter in over wire. Catheter removed over the exchange wire. A TR Band was successful obtaining hemostatsis at the Right Radial artery insertion site. Lidocaine 1% infiltrated to the right groin. Arterial access obtained with micropuncture set. Contrast hand injected through the micropuncture dilator. Lidocaine 1% infiltrated to the right groin. Contrast hand injected through the sheath. Lidocaine 1% infiltrated to the left groin. Arterial access obtained with micropuncture set. Wire and needle removed. Ultrasound being used to obtain access. Arterial access obtained with micropuncture set. ACT drawn. Results 217 seconds. Therapeutic limits - pre-heparin administration 90-150 seconds and monitoring heparin during a vascular procedure >250 seconds. A 5 sri lankan JR4 catheter in over wire. Multiple views taken of right coronary artery. EDP Sample taken: LV 137/-12,10; HR: 79 BPM; SpO2: 96%. Pullback taken: LV 127/-9,11; AO 124/78(99); Mean: 0mmHg, Peak to Peak: 1mmHg, SEP: 6sec/min; HR: 77 BPM; SpO2: 96%. A Suture was successful obtaining hemostatsis at the Right Femoral artery insertion site. A Suture was successful obtaining hemostatsis at the Left Femoral artery insertion site. Catheter removed over the standard wire. Arterial sheath flushed and connected to tranducer and pressure bag with heparinized saline. PERRLA. Strong, equal hand retail field representative bilaterally. No VTE prophylaxis required. Total IV fluids: 30 mL. Post-op diagnosis: Normal Coronaries. Estimated blood loss: 5mL-10mL. Responsiveness - Normal response to verbal stimuli; alert and oriented, PERRLA. Airway - Unaffected, no intervention required; spontaneous ventilation. Circulation: W/N/L, pulses unchanged. Nausea/Vomiting: No. Vital chart was stopped. Procedure completed. Patient transferred by bed to CPRU. Access Site Site: Right Radial artery Sheath Size: 6 Fr Hemostasis Method: TR Band Hemostasis Success: Successful Site: Right Femoral artery Sheath Size: 6 Fr Hemostasis Method: Suture Hemostasis Success: Successful Site: Left Femoral artery Sheath Size: 6 Fr Hemostasis Method: Suture Hemostasis Success: Successful Procedure Medications Start: 8:19 AM Stop: 8:19 AM Medication: Versed Amount: 1 mg Route: I.V. Start: 8:19 AM Stop: 8:19 AM Medication: Fentanyl Amount: 50 mcg Route: I.V. Start: 8:31 AM Stop: 8:31 AM Medication: Versed 1 mg and Fentanyl 25 mcg Amount: 1 Route: I.V. Start: 8:33 AM Stop: 8:33 AM Medication: Nitrogylcerin Amount: 200 mcg Route: I.A. Start: 8:36 AM Stop: 8:36 AM Medication: Heparin Amount: 5000 units Start: 8:40 AM Stop: 8:40 AM Medication: Nitrogylcerin Amount: 200 mcg Route: I.A. Start: 8:42 AM Stop: 8:42 AM Medication: Versed Amount: 1 mg Route: I.V. Start: 8:42 AM Stop: 8:42 AM Medication: Fentanyl Amount: 50 mcg Route: I.V. Start: 8:47 AM Stop: 8:47 AM Medication: Verapamil Amount: 5 mg Route: I.A. Start: 9:10 AM Stop: 9:10 AM Medication: Versed Amount: 1 mg Route: I.V. Start: 9:10 AM Stop: 9:10 AM Medication: Fentanyl Amount: 25 mcg Route: I.V. Start: 9:23 AM Stop: 9:23 AM Medication: Fentanyl Amount: 25 mcg Route: I.V. I, the attending physician, have reviewed and verified all procedure medications. Yes, all medications given per verbal order History/Risk Factors Hypertension: No Dyslipidemia: No Peripheral Arterial Disease (PAD): No Myocardial Infarction (VT): No Obesity: No Renal Disease: No Tobacco Use: Current/Recent(w/in 1 year) Prior Interventions PCI: No CABG: No Valve Surgery: No Report Signatures Finalized by Beni Wong MD on 04/29/2023 04:02 PM
--- NOTE | 2023-04-25 08:02 | PM.CONSULT ---
Providers/Reason For Consult Consulting Physician/Specialty*: Beni Wong MD/ Cardiology Reason for Consult*: NSTEMI Requesting Physician: Dr Bowser Attending Physician: Pino Ward Primary Care Provider: Jayden Arreola History of Present Illness History of Present Illness Dennis Ruelas is a 47 year old male with past medical history of pancreatitis, smoking who has presented to hospital with chest pain. Over the weekend patient was in [place] and there had severe chest pain. He went to the hospital and was found to have elevated troponins. However prior to further workup or treatment he left the hospital. Yesterday he was lifting some weight and felt severe pressure with nausea. He came to the hospital. His initial troponin was over 900. It has not trended up significantly. NT proBNP is also elevated. EKG not showing acute ST-T wave changes however lateral leads have nonspecific changes. Review of Systems Const: Denies: fever(s), chills, body aches or malaise Eyes: Denies: change in vision Card: Reports: chest pain; Denies: edema, pre-syncope or dyspnea on exertion Resp: Reports: productive cough (Chronic smoker's cough in the morning); Denies: dyspnea, change in phlegm color or hemoptysis GI: Denies: abdominal pain, nausea, vomiting, diarrhea, constipation, hematochezia or melena : Denies: flank pain, difficulty urinating, urinary frequency or hematuria Musc: Denies: back pain, joint swelling or joint redness Skin/Breast: Denies: rash or new lesions Neuro: Denies: headache(s), numbness in extremities, weakness in extremities, dizziness, confusion or seizure-like activity Medications/Allergies Home Medications Medication Instructions Recorded Confirmed Last Taken Type Cam Boot to the Left #1 ea 10/12/21 04/24/23 Unknown Rx aspirin 325 mg tablet 325 mg PO QAM 04/24/23 04/24/23 04/24/23 History 650 mg esomeprazole magnesium 20 mg 40 mg PO QAM 04/24/23 04/24/23 04/24/23 History capsule,delayed release (Nexium) Allergies Allergy/AdvReac Type Severity Reaction Status Date / Time No Known Allergies Allergy Verified 04/24/23 14:44 Current Medications Generic Name Dose Route Start Last Admin Trade Name Freq PRN Reason Stop Dose Admin Atorvastatin Calcium 40 mg 04/24/23 21:00 04/24/23 20:54 Atorvastatin 40 Mg Tablet PO 40 mg BEDTIME WHIT Administration Enoxaparin Sodium 77 mg 04/25/23 06:00 04/25/23 06:01 Enoxaparin 80 Mg/0.8 Ml Syringe SUBCUT Not Given Q12H WHIT Metoprolol Tartrate 25 mg 04/24/23 21:00 04/24/23 20:54 Metoprolol Tartrate 25 Mg Tablet PO 25 mg BID@0900,2100 WHIT Administration PFSH Acute PFSH: Medical History History of biliary stent insertion Pancreatitis Surgical History Hx of cholecystectomy Social History Smoking and tobacco/nicotine status: current every day tobacco/nicotine user Alcohol intake: never Substance/Drug Use: never Marital status: Single Vitals/I&O/Wt Last Vital Signs Temp 98.3 F 04/25/23 03:24 Pulse 62 04/25/23 05:33 Resp 17 04/25/23 03:24 BP 140/90 04/25/23 03:24 Pulse Ox 98 04/25/23 03:24 O2 Del Method Room Air 04/25/23 03:24 04/24/23 04/25/23 04/25/23 22:59 06:59 14:59 Intake Total 221 / 221 0 / 221 Output Total 250 / 250 150 / 400 Balance - / -29 -150 / -179 Weight last 48 hrs Weight 170 lb 4.8 oz Weight 171 lb 9.6 oz Weight 170 lb Physical Exam Narrative: GENERAL: Patient is alert, awake and oriented x3. [] NECK: No jugular vein distension. [] HEENT: No cyanosis. No icterus. No pallor. [] HEART: Regular S1 and S2. No murmur, rub or gallop. [] LUNGS: Clear to auscultate bilaterally. [] CENTRAL NERVOUS SYSTEM: Grossly nonfocal. [] EXTREMITIES: Lower extremities with 1+ edema bilaterally. Data 04/25/23 05:28 04/25/23 05:28 A&P Assessment and plan (1) Non-ST elevation IN (NSTEMI): (2) Smoking addiction: Plan Patient has presented with findings consistent with non-ST elevation IN. Symptoms are typical with significant troponin elevation. Will proceed with coronary angiogram with possible percutaneous coronary intervention. Risks and benefits of the procedure have been discussed. Continue dual antiplatelet therapy. Continue anticoagulation Order echocardiogram. Thank you for involving us with care of this patient. We will continue to follow. Please call with questions. Consult Attestations Medical Necessity Statement: Care expected to cross 2 midnights. Coding Level of Care Code Acute Code for [facility] Fwd Diagnoses Non-ST elevation IN (NSTEMI) I21.4 Smoking addiction F17.200
--- NOTE | 2023-04-25 08:30 | W.PM.OPSUD ---
Surgery/Procedure H&P Update DATE OF PROCEDURE: April 25, 2023 DATE H&P PERFORMED: 04/25/23 H&P UPDATE INFORMATION: I have reviewed H&P completed within last 30 days, I have examined patient prior to procedure and No changes to prior documentation PREOP DIAGNOSIS: NSTEMI PRIMARY INDICATION FOR PROCEDURE: NSTEMI PLANNED PROCEDURE: Left heart cath with possible percutaneous coronary intervention PATIENT REASSESSED PRIOR TO SEDATION, WITH NO CHANGE NOTED: Yes PHYSICAL EXAM: alert, oriented x 3, clear to auscultation bilaterally and regular rate & rhythm AIRWAY EVAL/ANESTHESIA PLAN: normal airway, ASA III, Local Anesthesia, Risks, benefits & alternatives of sedation and/or procedure discussed and Patient agrees to continue as planned ADDITIONAL INFORMATION: Moderate sedation
--- NOTE | 2023-04-25 09:40 | PC.NURSE ---
Patient arrived to CPRU 4 post cardiac cath. Pt alert and oriented, breathing even and non-labored on room air. Pt denies pain. Patient has TR band to right radial, site asymptomatic. No signs of bleeding or hematoma. Pt has bilateral femoral 6fr arterial sheaths connected to pressure bags. Both sites asymptomatic, no signs of bleeding or hematomas. Pedal pulses dopplered. Verbal orders received from Dr. Wong to pull right groin sheath 30 minutes after arrival to CPRU. Pt placed on bedside compliance monitor.
--- NOTE | 2023-04-25 09:51 | PC.CHAP ---
Pastoral Care Encounter/Spiritual Assessment Type of Contact [] Declined perfume compounder visit [] Patient/Family/Request visit [] Outpatient visit [] Follow-up visit [] Physician referral [] Code/Alert [] Routine visit [] Staff referral [] Actively dying [] Patient sleeping [] Family support [] [x] Out of room [] Palliative care [] [] Receiving care in room [] Pre-surgical visit [] Trauma [] Long length of stay [] ICU visit [] Other: Relational/Emotional Strength [] Patient feels connected with others/family/visitors/staff [] Distress [] Loneliness/isolation [] Abandonment Spirituality of Patient [] Person of Crystal [] Attends Orthodox of their Crystal [] Believes in Prayer [] Reads Bible or Pentecostalism materials [] There are Spiritual issues to be addressed Air Export Agent Interventions [] Prayer [] Active listening [] Non-anxious presence [] Spiritual/emotional support [] Crisis/trauma care [] Spiritual counseling [] Bereavement support [] Provided bereavement packet [] Provided Bible/devotional materials [] Provided toy/stuffed animal, coloring book to patient or family member [] Provided Communion [] Anointing/[place] [] Salvation [] Completed spiritual assessment [] Other: Impact on Illness or Injury [] Angry [] Fearful [] Anxious [] Often cries [] Exhaustion [] Unable to work [] Unable to attend baptist [] Unable to walk/stand [] Unable to read [] Unable to drive [] Unable to eat/drink [] Unable to sleep [] Unable to be with family [] Patient intubated [] Other: Summary Time spent with patient
--- NOTE | 2023-04-25 10:25 | PC.NURSE ---
ACT drawn, results 180. Dr. Wong gave verbal orders to pull right groin sheath now.
--- NOTE | 2023-04-25 11:02 | PC.NURSE ---
Right femoral arterial sheath pulled and held manual pressure until hemostasis acheived. Right groin site is asymptomatic , soft , no signs of bleeding or hematoma. Sterile dressing applied. Reinforced bedrest status and activity restrictions, pt verbalized understanding.
--- NOTE | 2023-04-25 12:04 | XACV_ITS ---
Ht: 178 cm Wt: 77 kg BSA: 1.96 m2 Any Known Allergies: No known allergies Gender: Male : 1975 Exam Type: Invasive Peripheral Vascular Procedure(s): Procedure Description: Peripheral Cath Diagnostic Procedure Exam Priority: Routine Abdominal Diagnostic Findings Distal abdominal aorta: Patent. Lower Extremity Diagnostic Findings INDICATION: Patient had cardiac catheterization earlier today. Access was switched to right femoral artery as the radial artery went into spasm. Right external iliac artery showing either dissection versus occlusion. For completion of coronary angiogram, left common femoral artery access was obtained and picture was taken. Sheath from the right common femoral artery has been removed in the recovery area and patient brought back for peripheral angiogram to assess dissection versus occlusion of right external iliac artery and possible need for any intervention. Procedure detail: Left common femoral artery sheath was still in place. We used UF catheter to obtain lower extremity images.. Right lower extremity: Right common iliac artery is patent. Right external iliac artery is occluded with a large sized collateral reconstituting profunda/SFA. Very high bifurcation of the profunda/SFA. No evidence for dissection seen. SFA is patent to popliteal artery. Below the knee vessels not assessed.. Left lower extremity findings: Left common iliac artery is patent. Left external iliac artery is patent. Left common femoral artery is patent. Vessels below that level not assessed.. 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 Recommendations Medical therapy at this time as patient has no lifestyle limiting claudication. Hemodynamic Data Phase:Rest AO : 126.0 / 94.0 ( 110.0 ) @ 12:37:00 PM Procedure Details Findings Pre-Procedure Time Out. Identified patient by full name and date of as verbalized by the patient/guarantor. Does the consent match the physician's order: Yes. Accurate & Complete Informed Consent: Yes. Inpatient/Outpatient History & Physical on Chart: Yes. If H&P is completed, is and addenduem needed: No; If yes, is the addendum complete: N/A. Visualize and Verify Site with Patient/Guarantor: N/A. Relevant Radiology Images available: Yes. Pre-op teaching completed and patient verbalized understanding. The risks, benefits, and alternatives of sedation and/or procedure were discussed by physician. The patient agrees to continue. Procedure started. Physician arrived. Physician scrubbed in. Time out performed with cath team. Pt returned to CCL with 6Fr sheath intact to L groin. A 5F UF catheter in over wire. Abdominal aortogram performed in AP @ 10 mL/sec for a total of 30 mL. R leg runoff performed in DSA. Abdominal aortogram performed in ESPINAL @ 10 mL/sec for a total of 20 mL in DSA. Catheter out. Physician scrubbed out. Sheath(s) sutured into position with 2-0 silk and sterile 4x4's and Op-site applied over the site. No oozing or signs and symptoms of hematoma noted. Arterial sheath flushed and connected to tranducer and pressure bag with heparinized saline. Post Procedure: Pulses reassessed and unchanged. PERRLA. Strong, equal hand ventilator specialist bilaterally. No VTE prophylaxis required. Medication's Wasted: Heparin = 1000 u. Medication's Wasted: Other = Fentanyl 50 mcg. Medication's Wasted: Other = Versed 1 mg. Total IV fluids: 20 mL. Post-op diagnosis: Totally occluded external iliac with collaterals. Complications: none. Estimated blood loss: 5mL-10mL. Responsiveness - Normal response to verbal stimuli; alert and oriented, PERRLA. Airway - Unaffected, no intervention required; spontaneous ventilation. Circulation: W/N/L, pulses unchanged. Nausea/Vomiting: No. Procedure completed. Patient transferred by bed to 1st floor. Vital chart was stopped. Procedure Medications Start: 12:23 PM Stop: 12:23 PM Medication: Versed Amount: 1 mg Route: I.V. Start: 12:23 PM Stop: 12:23 PM Medication: Fentanyl Amount: 50 mcg Route: I.V. I, the attending physician, have reviewed and verified all procedure medications. Yes, all medications given per verbal order History/Risk Factors Hypertension: No Dyslipidemia: No Peripheral Arterial Disease (PAD): No Obesity: No Renal Disease: No Tobacco Use: Current/Recent(w/in 1 year) Prior Interventions PCI: No CABG: No Valve Surgery: No Report Signatures Finalized by Beni Wong MD on 04/29/2023 04:39 PM
--- NOTE | 2023-04-25 13:20 | PC.NURSE ---
received from cardiac bolt labeler at 1250.report received.pt is alert and awake and oriented x 4.deneis pain at present.sr on monitor.right wrist with tr band on and inflated.right hand is warm to touch and with brisk capillary refill.palpable radial pulse noted distal to tr band.no hematoma noted.right groin with drsg dry and intact (arterial sheath pulled in bolt labeler).no hematoma noted.left femoral artery sheath intact to pressurized system.no hematoma noted.drsg is dry and intact.right leg is warm and dry to touch.palpable dp pulse noted.pt instructed to notify staff for any bleeding,pain,numbness or for any concerns at all.pt verb understanding of instructions.
[2023-04-25] MEDS: metoprolol tartrate 25 mg Tablet PO ×2 (13:36→21:18)
[2023-04-25] MEDS: aspirin 325 mg Tablet PO (13:36)
[2023-04-25] MEDS: pantoprazole DR 40 mg Tablet PO (13:36)
--- NOTE | 2023-04-25 14:37 | PC.NURSE ---
left femoral sheath pulled at 1345.manual pressure held x 20 min.no hematoma formation noted.left leg remained warm to touch and with brisk capillary refill.palpable dp pulse noted.pt instructed in activity restrictions and instructed to notify staff for any bleeding,pain,numbness...or for any concerns at all.pt verb understanding of instructions.
--- NOTE | 2023-04-25 16:26 | P.PN_ITS ---
Subjective 2 Subjective: He reports he is doing better today. Denies any chest pain today. No fever or chills. No significant cough. Vitals/I&O/Wt Last Vital Signs Temp 98.3 F 04/25/23 03:24 Pulse 79 04/25/23 13:30 Resp 18 04/25/23 13:30 BP 169/113 04/25/23 13:30 Pulse Ox 95 04/25/23 13:30 O2 Del Method Room Air 04/25/23 03:24 04/25/23 04/25/23 04/25/23 06:59 14:59 22:59 Intake Total 0 / 221 480 / 480 Output Total 150 / 400 Balance -150 / -179 480 / 480 Weight last 48 hrs Weight 77.247 kg Weight 77.836 kg Weight 77.111 kg Physical Exam 2 Const: COMMON NORMALS: patient oriented x3 and alert GENERAL APPEARANCE: c ooperative ORIENTATION/CONSCIOUSNESS: Yes awake HENMT: COMMON NORMALS: oropharynx normal Neck/C-Spine: COMMON NORMALS: no JVD Resp: COMMON NORMALS: normal respiratory effort and clear to auscultation bilaterally AUSCULTATION: clear to auscultation bilaterally Cardio: COMMON NORMALS: no JVD, regular rhythm, S1 normal heart sound present, S2 normal heart sound present and No murmurs present (Cardio) RHYTHM: regular rhythm HEART SOUNDS: S1 normal heart sound present and S2 normal heart sound present GI: COMMON NORMALS: Normal to inspection, nondistended, normoactive bowel sounds present, Soft to palpation and non-tender PALPATION: Yes Soft to palpation Extremity: COMMON NORMALS: no joint enlargement and no pedal edema Neuro: COMMON NORMALS: patient oriented x3 and moves all extremities S ENSORIUM/ORIENTATION: Yes alert Skin: COMMON NORMALS: no rashes or lesions noted GENERAL SKIN EXAM: no rashes or lesions noted Data 04/25/23 05:28 04/25/23 05:28 A&P Assessment and plan (1) Non-ST elevation DC (NSTEMI): Status post coronary angiogram. Discussed with cardiology. Reviewed cardiology note. As he has discussed with cardiology, no significant coronary disease is noted on angiogram. Entirely clear cause of his troponin ovation, possibly transient clot which is dissipated versus as discussed with him possibility of microvascular disease, or possibly myocarditis with some noted peribronchial thickening, possibly recent viral illness. Reviewed troponin series. Troponin noted to be decreasing, 6 hours down to 823. He is chest pain-free. Blood pressure is doing better. Tachycardia resolved. Monitor today. Reassess condition. Continue aspirin, Plavix per cardiology recommendation. Continue to optimize risk factors of cardiovascular disease. Monitor blood pressures. Discussed with him again smoking cessation. Reviewed vitals, CBC, CMP, troponin series,Urine drug screen, noted negative. Respiratory viral panel, noted negative. Discussed with gearcase assembler. (2) Bronchitis: Continue supportive treatment. Possible bronchitis with parabronchial thickening. He reports some chronic morning smoker's cough, otherwise denies any worsening. Will obtain respiratory viral panel with recent travel. No leukocytosis, no fever. No antibiotic at this time. Little butyryl breathing treatments as needed. (3) Smoking addiction: Continue to encourage cessation Discussed smoking cessation for 4 minutes, encourage cessation with risk of cardiovascular disease, heart attack, stroke, lung disease, cancer, other complications. He has not been ready to quit yet. Discussed with him we will provide nicotine replacement should he needed due to cravings. Plan History of pancreatitis: Requesting lipase. Reports recently lipase done at uroscopy was not elevated. Discussed with him in case of biliary pancreatitis, stent malfunction or other problems requiring intervention this cannot be done at this hospital and would require transfer, which she states he understands. History of cholecystectomy, biliary duct stent: Reviewed liver parameters, T. bili is normal. Alk phos with some elevation 152. No right upper quadrant pain. Minimal epigastric tenderness. Attestations 2 Medical Necessity Statement*: Continue admission for assessment management of NSTEMI, possible myocarditis. and High MDM includes amount and/or complexity of data reviewed/ordered [ previous or external records, resulted lab(s)/test(s), ordered lab(s)/test(s) and other healthcare professional discussion] as documented Diagnoses Non-ST elevation DC (NSTEMI) I21.4 Bronchitis J40 Smoking addiction F17.200
--- NOTE | 2023-04-25 19:16 | USCV_ITS ---
Dennis Ruelas Age: 47 Gender: M : 1975 Exam Date: 04/25/2023 02:51 Ordering Phys: Pino Ward MD Technologist: ZOHRA [place] [facility] [place]: NSTEMI, chest pain x 4-5 days. No history of caridac intervention per patient. BP: 141 / 106 HR: 85 Rhythm: Sinus Technical Quality: Good MEASUREMENTS (Male / Female) Normal Values 2D ECHO LV Diastolic Diameter PLAX 4.6 cm 4.2 - 5.9 / 3.9 - 5.3 cm LV Systolic Diameter PLAX 3.1 cm IVS Diastolic Thickness 1.1 cm 0.6 - 1.0 / 0.6 - 0.9 cm IVS Systolic Thickness 1.5 cm LVPW Diastolic Thickness 1.3 cm 0.6 - 1.0 / 0.6 - 0.9 cm LVPW Systolic Thickness 1.7 cm LVOT Diameter 2.0 cm LV Ejection Fraction 2D Teich 59.9 % LV Ejection Fraction MOD 2C 60.6 % LV Ejection Fraction 2C AL 60.0 % LA Diameter 2.6 cm LA Width 2.0 cm LA Height 4.1 cm RA Width 3.3 cm RA Height 3.4 cm Aorta at Sinotubular Diameter 3.1 cm IVC Diameter 1.5 cm M-MODE Aortic Annulus Diameter 3.0 cm LA Ao Ratio MM 0.9 MV E Point Septal Separation 0.4 cm DOPPLER AV Peak Velocity 106.0 cm/s LVOT Peak Velocity 75.0 cm/s AV Area Cont Eq vti 2.0 cm squared AV Area Cont Eq pk 2.1 cm squared MV Area PHT 4.3 cm squared Mitral E to A Ratio 1.3 MV E' Velocity 51.5 cm/s Mitral E to MV E' Ratio 11.3 Mitral E to LV E' Lateral Ratio 12.2 Mitral E to LV E' Septal Ratio 10.7 TR Peak Velocity 215.0 cm/s TR Peak Gradient 18.5 mmHg TV Peak E Velocity 41.0 cm/s Right Atrial Pressure 5.0 mmHg Pulmonary Artery Systolic Pressu 23.5 mmHg PV Peak Velocity 84.0 cm/s RV Acceleration Time 0.1 s RV Ejection Time 0.4 s RV AcT/ET 0.3 FINDINGS Left Ventricle Left ventricle is normal in size. LV systolic function is normal with EF of 55 to 60%. No regional wall motion abnormalities are seen. Moderate to severe left ventricular hypertrophy Right Ventricle Normal in size and function Right Atrium Normal in size Left Atrium Normal in size Mitral Valve Structurally normal mitral valve. Mild mitral regurgitation. Aortic Valve Structurally normal aortic valve. No significant stenosis or regurgitation. Tricuspid Valve Mild tricuspid regurgitation. Insufficient TR jet to calculate RVSP. Pulmonic Valve Not well visualized Pericardium Normal Aorta Normal in size IVC Appears to be normal CONCLUSIONS LV systolic function is normal with EF of 55 to 60%. Moderate severity of mitral hypertrophy Mild mitral regurgitation Mild tricuspid regurgitation No comparison studies are available. Beni Wong MD (Electronically Signed) Final Date: 25 April 2023 17:01 S
[2023-04-25] MEDS: atorvastatin 40 mg Tablet PO (21:18)
[2023-04-26] VITALS (7 sets, daily range): BP systolic 132–146; BP diastolic 86–91; PULSE 60–72; RESP 9–16; TEMP 36.4–36.5; O2SAT 93–98; BMI 23.7
[2023-04-26 03:52] LABS: Basophils % 0.5 %; Eosinophils # 0.1 10^3/uL (0.0-0.8); Eosinophils % 1.7 %; Hematocrit 45.5 % (37-53); Lymphocytes # 2.6 10^3/uL (0.8-4.8); Lymphocytes % 31.5 %; Mean Corpuscular HGB Conc 32.7 g/dL (30-55); Mean Corpuscular Hemoglobin 30.3 pg (27-33); Mean Corpuscular Volume 92.7 fl (82-101); Mean Platelet Volume 9.6 fL (7.4-10.4); Monocytes # 0.8 10^3/uL (0.2-0.9); Neutrophils # 4.78 10^3/uL (1.8-7.7); Neutrophils % 57.2 %; Nucleated Red Blood Cells % 0 %; Platelet Count 240 10^3/cmm (157-399); Red Blood Count 4.91 10^6/uL (3.85-5.65); Red Cell Distribution Width 14.4 % (12.1-15.1); White Blood Count 8.35 10^3/uL (3.29-11.43)
[2023-04-26 04:18] LABS: Alanine Aminotransferase 20 U/L (0-41); Albumin Level 3.3 g/dL (3.5-5.2); Alkaline Phosphatase 126 U/L (40-130); Anion Gap 15.2 (5-19); Aspartate Amino Transferase 22 U/L (0-40); Blood Urea Nitrogen 10 mg/dL (6-20); Calcium 8.8 mg/dL (8.5-10.5); Carbon Dioxide 24 mmol/L (22-29); Chloride 104 mmol/L (98-107); Globulin 3.1 g/dL (1.3-4.6); Glomerular Filtration Rate 90.4 mL/min (90-130); Glucose 93 mg/dL (65-115); Osmolality Calculated 287 mOsm/kg (285-295); Potassium 4.2 mmol/L (3.5-5.1); Sodium 139 mmol/L (136-145); Total Bilirubin 0.7 mg/dL (0.15-1.2); Total Protein 6.4 g/dL (6.6-8.7)
[2023-04-26] MEDS: enoxaparin 80 mg/0.8 mL Syringe 77 MG SUBCUT (06:28)
--- NOTE | 2023-04-26 07:44 | PM.PN ---
Subjective Subjective: Patient is chest pain free. Coronary angiogram showed diffuse mild CAD but no significant stenosis. Echo shows normal LV systolic function. Vitals/I&O/Wt Last Vital Signs Temp 97.6 F 04/26/23 04:03 Pulse 62 04/26/23 06:00 Resp 13 04/26/23 04:03 BP 132/88 04/26/23 04:03 Pulse Ox 93 04/26/23 04:03 O2 Del Method Room Air 04/25/23 20:50 04/25/23 04/26/23 04/26/23 22:59 06:59 14:59 Intake Total 480 / 960 Balance 480 / 960 Weight last 48 hrs Weight 165 lb 5 oz Weight 170 lb 4.8 oz Weight 171 lb 9.6 oz Weight 170 lb Physical Exam Narrative: GENERAL: Patient is alert, awake and oriented x3. [] NECK: No jugular vein distension. [] HEENT: No cyanosis. No icterus. No pallor. [] HEART: Regular S1 and S2. No murmur, rub or gallop. [] LUNGS: Clear to auscultate bilaterally. [] CENTRAL NERVOUS SYSTEM: Grossly nonfocal. [] EXTREMITIES: Lower extremities with 1+ edema bilaterally. Data 04/26/23 03:30 04/26/23 03:30 A&P Assessment and plan (1) Non-ST elevation VT (NSTEMI): (2) Smoking addiction: Plan Patient's coronary angiogram did not reveal significant severe CAD. He also had a peripheral angiogram done secondary to difficulty in access. Has total occlusion of external iliac artery on the right side with good collateral flow. Troponin elevation secondary to VT with normal coronary arteries( [facility]). Possibility of myocarditis cannot be ruled out. However patient is asymptomatic. We will medically manage him. Aspirin, Plavix and beta-ericka. He has mild plaque buildup in coronary arteries. Will recommend statin therapy. ECHO shows normal LV systolic function Thank you for involving us with care of this patient. Patient is stable to be discharged from cardiology standpoint. Please call with questions. Attestations Medical Necessity Statement*: Care expected to cross 2 midnights. Coding Level of Care Code Acute Code for [facility] Diagnoses Non-ST elevation VT (NSTEMI) I21.4 Smoking addiction F17.200
[2023-04-26] MEDS: pantoprazole DR 40 mg Tablet PO (08:47)
[2023-04-26] MEDS: aspirin 325 mg Tablet PO (08:48)
[2023-04-26] MEDS: metoprolol tartrate 25 mg Tablet PO (08:48)
[2023-04-26] MEDS: clopidogrel 75 mg Tablet PO (08:48)
--- NOTE | 2023-04-26 13:41 | P.DS_ITS ---
Discharge Providers Date of Admission: 04/24/23 17:57 Date of Discharge: April 26, 2023 Attending Provider at Admission: Pino Ward Attending Provider at Discharge: Pino Ward Primary Care Provider: Jayden Arreola Diagnoses at Discharge Discharge Diagnosis (1) Non-ST elevation [place] (NSTEMI): Status: Acute (2) Smoking addiction: Status: Acute Reason for Visit Reason for Visit: chest pain, sob Brief History: 47-year-old gentleman with history of pa ncreatitis, presented to ER after recent visit to the ER during his trip in [place] where he was having chest pain across his chest to the left shoulder and neck and right shoulder. Reports troponin was elevated during ER visit, however, he did not know anybody there and states had left the hospital prematurely before getting additional workup done. He states that he had delayed coming in initially thinking that it was his pancreatitis flaring up, but states that lipase was checked in the other hospital and was normal. He is currently having some mild nausea, denies vomiting. He is not having the severe pain he was seen before some mild residual dull ache only, centrally located. In ER he is found to have severe elevation of troponin up into the high 900s he is hypertensive, presentation with sinus tachycardia. CT angiogram chest without PE, discussed with him some finding of peribronchial thickening/bronchitis like findings. He states he has got some chronic cough with smoking, this has not been worse than usual. Hospital Course Hospital Course He was started on treatment for NSTEMI protocol, completed assessment with troponin EKG series. Troponins increased further slightly, then showed decrease. Was assessed with echocardiogram which showed normal ejection fraction, moderate LVH, mild MVR, mild TVR. He was assessed by cardiology. With recent symptoms, risk factors, underwent additional assessment with coronary angiography which showed mild plaque, no intervenable disease. It is unclear as to the etiology of his severe troponin elevation, chest pain, possibility of clot that was partially treated in [place] where he received anticoagulation, antiplatelets, possibly reversed with additional treatment here, versus other possibilities, microvascular disease with LVH, was quite hypertensive on presentation, also possibility of myocarditis. He has remained chest pain-free. Blood pressure is doing better. He is counseled on smoking cessation, continue optimization of cardiovascular risk factors, monitoring and managing his blood pressure. He was reassessed by cardiology, recommendation is to continue aspirin, Plavix, beta-ericka, he is also started on statin, follow- up with cardiology in office. Counseled to avoid overexertion, light activity, he knows to seek medical attention in case of any worsening or new concerning symptoms. Noted to have some peribronchial thickening, possible bronchitis, possible viral trigger to his etiology?, Although respiratory viral panel was negative. He is otherwise saturating well on room air, mild smoker's cough, but no other symptoms. No PE on CTA. He is noted to have some emphysematous changes, however, and again smoking cessation is highly recommended for him. Please follow-up for reassessment, as well as to assist him with quitting smoking and other management of cardiovascular risk. Physical Exam Narrative: He is doing well. Pleasant, conversant, in good spirits. Has ambulated around his room and to the restroom and encountered no issues. Free of any pain or discomfort. Feels comfortable returning home with follow-up. Const: COMMON NORMALS: patient oriented x3 and alert GENERAL APPEARANCE: cooperative ORIENTATION/CONSCIOUSNESS: Yes awake HENMT: COMMON NORMALS: oropharynx normal Neck/C-Spine: COMMON NORMALS: no JVD Resp: COMMON NORMALS: normal respiratory effort and clear to auscultation bilaterally AUSCULTATION: clear to auscultation bilaterally Cardio: COMMON NORMALS: no JVD, regular rhythm, S1 normal heart sound present, S2 normal heart sound present and No murmurs present (Cardio) RHYTHM: regular rhythm HEART SOUNDS: S1 normal heart sound present and S2 normal heart sound present GI: COMMON NORMALS: Normal to inspection, nondistended, normoactive bowel sounds present, Soft to palpation and non-tender PALPATION: Yes Soft to palpation Extremity: COMMON NORMALS: no joint enlargement and no pedal edema NARRATIVE EXTREMITY EXAM: Right hand warm, well-perfused, no swelling or mass at the right wrist access Neuro: COMMON NORMALS: patient oriented x3 and moves all extremities SENSORIUM/ORIENTATION: Yes alert Skin: COMMON NORMALS: no rashes or lesions noted GENERAL SKIN EXAM: no rashes or lesions noted Discharge Data Studies Completed and Pending Completed Studies During Hospitalization Category Date Time Status CTA chest [CT angio chest PE protcl [id number]] Stat Cat Scan 04/24/23 15:37 Completed XR chest 1V portable [id number] Stat Exams 04/24/23 14:34 Completed CV. echo complete* [id number] Routine Ultrasound 04/25/23 19:16 Completed Pending at discharge Category Date Time Status BUSINESS SOLUTIONS ARCHITECT request for service Routine Exams 04/25/23 07:13 Taken BUSINESS SOLUTIONS ARCHITECT request for service Routine Exams 04/25/23 12:04 Taken Complete Blood Count w/Auto AM LABS Lab 04/27/23 04:00 Ordered Comprehensive Metabolic Panel AM LABS Lab 04/27/23 04:00 Ordered Radiology Impressions Chest X-Ray 04/24/23 14:34 IMPRESSION: Peribronchial wall thickening suggestive of an infectious or inflammatory bronchitis. Chest CTA 04/24/23 15:37 IMPRESSION: Mild peribronchial wall thickening/bronchitis. [id number] emphysematous changes at the lung apices. Laboratory Results WBC 8.35 10^3/uL (3.29-11.43) 04/26/23 03:30 RBC 4.91 10^6/uL (3.85-5.65) 04/26/23 03:30 Hgb 14.90 g/dL (11.27-16.99) 04/26/23 03:30 Hct 45.5 % (37-53) 04/26/23 03:30 MCV 92.7 fl (82-101) 04/26/23 03:30 MCH 30.3 pg (27-33) 04/26/23 03:30 MCHC 32.7 g/dL (30-55) 04/26/23 03:30 RDW 14.4 % (12.1-15.1) 04/26/23 03:30 Plt Count 240 10^3/cmm (157-399) 04/26/23 03:30 MPV 9.6 fL (7.4-10.4) 04/26/23 03:30 Neut % (Auto) 57.2 % 04/26/23 03:30 Lymph % (Auto) 31.5 % 04/26/23 03:30 [place] % (Auto) 9.0 % 04/26/23 03:30 Eos % (Auto) 1.7 % 04/26/23 03:30 Baso % (Auto) 0.5 % 04/26/23 03:30 Neut # (Auto) 4.78 10^3/uL (1.8-7.7) 04/26/23 03:30 Lymph # (Auto) 2.6 10^3/uL (0.8-4.8) 04/26/23 03:30 [place] # (Auto) 0.8 10^3/uL (0.2-0.9) 04/26/23 03:30 Eos # (Auto) 0.1 10^3/uL (0.0-0.8) 04/26/23 03:30 Baso # (Auto) 0.0 10^3/uL (0.0-0.1) 04/26/23 03:30 Nucleated RBC % (auto) 0 % 04/26/23 03:30 Nucleated RBCs # 0.0 /100WBC 04/26/23 03:30 PT 12.40 SECONDS (12.1-14.9) 04/24/23 14:58 INR 0.90 (0.8-1.2) 04/24/23 14:58 Sodium 139 mmol/L (136-145) 04/26/23 03:30 Potassium 4.2 mmol/L (3.5-5.1) 04/26/23 03:30 Chloride 104 mmol/L (98-107) 04/26/23 03:30 Carbon Dioxide 24 mmol/L (22-29) 04/26/23 03:30 Anion Gap 15.2 (5-19) 04/26/23 03:30 BUN 10 mg/dL (6-20) 04/26/23 03:30 Creatinine 0.9 mg/dL (0.7-1.2) 04/26/23 03:30 GFR Calculation 90.4 mL/min (90-130) 04/26/23 03:30 Glucose 93 mg/dL (65-115) 04/26/23 03:30 Calculated Osmolality 287 mOsm/kg (285-295) 04/26/23 03:30 Calcium 8.8 mg/dL (8.5-10.5) 04/26/23 03:30 Magnesium 1.9 mg/dL (1.7-2.3) 04/24/23 14:58 Total Bilirubin 0.7 mg/dL (0.15-1.2) 04/26/23 03:30 AST 22 U/L (0-40) 04/26/23 03:30 ALT 20 U/L (0-41) 04/26/23 03:30 Alkaline Phosphatase 126 U/L (40-130) 04/26/23 03:30 Troponin T Baseline 972 ng/L (0-15) H* 04/24/23 14:58 Troponin T 120 Minute 998.6 ng/L (0-15) H 04/24/23 17:51 Delta Troponin T 26.6 ABS# (0-10) H* 04/24/23 17:51 Troponin T Hi Sens 6Hr 823.8 ng/L (0-15) H 04/24/23 20:29 Troponin T Hi Sens 6Hr Delta -148.2 ng/L (0-12) L 04/24/23 20:29 NT-Pro-B Natriuret Pep 1422 pg/mL (0-125) H 04/24/23 14:58 Total Protein 6.4 g/dL (6.6-8.7) L 04/26/23 03:30 Albumin 3.3 g/dL (3.5-5.2) L 04/26/23 03:30 Globulin 3.1 g/dL (1.3-4.6) 04/26/23 03:30 Lipase 29 U/L (13-60) 04/24/23 14:58 Urine Opiates Screen Negative ng/mL (Negative) 04/24/23 20:55 Ur Barbiturates Screen Negative ng/mL (Negative) 04/24/23 20:55 Ur Phencyclidine Scrn Negative ng/mL (Negative) 04/24/23 20:55 Ur Amphetamines Screen Negative ng/mL (Negative) 04/24/23 20:55 U Benzodiazepines Scrn Negative ng/mL (Negative) 04/24/23 20:55 Urine Cocaine Screen Negative ng/mL (Negative) 04/24/23 20:55 U Marijuana (THC) Screen Negative ng/mL (Negative) 04/24/23 20:55 Adenovirus (PCR) Not detected (NOT DETECT) 04/24/23 19:59 C. pneumoniae DNA (PCR) Not detected (NOT DETECT) 04/24/23 19:59 Coronavirus 229E (PCR) Not detected (NOT DETECT) 04/24/23 19:59 Human Metapneumovir PCR Not detected (NOT DETECT) 04/24/23 19:59 Influenza A (H1) PCR Not detected (NOT DETECT) 04/24/23 19:59 Influ A (H1/09) PCR Not detected (NOT DETECT) 04/24/23 19:59 Influenza A (H3) PCR Not detected (NOT DETECT) 04/24/23 19:59 Influenza Type A (PCR) Not detected (NOT DETECT) 04/24/23 19:59 Influenza Type B (PCR) Not detected (NOT DETECT) 04/24/23 19:59 M. pneumoniae (PCR) Not detected (NOT DETECT) 04/24/23 19:59 Parainfluenza 1 (PCR) Not detected (NOT DETECT) 04/24/23 19:59 Parainfluenza 2 (PCR) Not detected (NOT DETECT) 04/24/23 19:59 Parainfluenza 3 (PCR) Not detected (NOT DETECT) 04/24/23 19:59 Parainfluenza 4 (PCR) Not detected (NOT DETECT) 04/24/23 19:59 RSV Type A (PCR) Not detected (NOT DETECT) 04/24/23 19:59 RSV Type B (PCR) Not detected (NOT DETECT) 04/24/23 19:59 Entero/Rhino (PCR) Not detected (NOT DETECT) 04/24/23 19:59 SARS-CoV-2 (PCR) Not detected (NOT DETECT) 04/24/23 19:59 Vitals Last Vital Signs Temp 97.7 F 04/26/23 10:58 Pulse 72 04/26/23 10:58 Resp 9 L 04/26/23 10:58 BP 146/91 04/26/23 10:58 Pulse Ox 98 04/26/23 10:58 O2 Del Method Room Air 04/26/23 08:12 Discharge Plan Discharge Patient Disposition: Home Condition: Stable Prescriptions: New nitroglycerin 0.4 mg Tablet, Sublingual 0.4 mg sublingual Q5M PRN (Reason: Chest Pain) Qty: 25 0RF aspirin 81 mg capsule 81 mg PO DAILY Qty: 90 0RF nicotine 21 mg/24 hr patch 24 hour 1 patch transdermal DAILY Qty: 28 3RF metoprolol tartrate 25 mg Tablet 25 mg PO BID@0900,2100 Qty: 180 0RF atorvastatin 40 mg Tablet 40 mg PO BEDTIME Qty: 90 0RF clopidogrel 75 mg Tablet 75 mg PO DAILY Qty: 90 0RF nicotine (polacrilex) 4 mg lozenge 4 mg buccal Q2H PRN (Reason: nicotine cravings) Qty: 81 3RF Rx Instructions: Do not exceed 20 in a day. Continued Nexium 20 mg Capsule,Delayed Release(Dr/Ec) 40 mg PO QAM Discontinued aspirin 325 mg Tablet 325 mg PO QAM No Action (DME) Cam Boot to the Left See Rx Instructions .Route .MEDSUPPLY Qty: 1 0RF Rx Instructions: As directed Discharge Orders: Discharge Order (Routine); Ordered 04/26/23 Ordered By: Pino Ward Referrals: Betty Ge FNP [Nurse Practitioner] - 05/08/23 2:00 pm Jayden Arreola MD [Primary Care Provider] - 05/03/23 1:15 pm Patient Instructions: Metoprolol (By mouth) (Lopressor, Toprol XL), Nitroglycerin (By mouth), Nicotine (Into the mouth) (Nicorette, Commit, [facility] Nicotine,..., Aspirin (By mouth), Atorvastatin (By mouth), Clopidogrel (By mouth) (Plavix), DASH Eating Plan (DC), Heart Catheterization (DC), Post Angiogram Home Care Instructions Activity Restrictions/Additional Instructions: Follow-up with your primary doctor and cardiology for reassessment after heart attack with normal coronary arteries, possibly result clot, possibly microvascular disease, although also possible myocarditis. Avoid overexertion. Continue medications as recommended by cardiology. Follow-up for reassessment. Seek medical attention in case of any worsening or new concerning symptoms. Continue to optimize risk factors of cardiovascular disease. Please stop smoking. Monitor your blood pressure twice daily at home, save readings to bring to your appointment to help adjust her medications. Follow-up with your primary doctor for additional assessment of emphysema changes seen on CT. Again please stop smoking due to risk of progression to COPD. Discharge Attestations Time Spent in Discharge Care*: greater than 30 min Quality Metrics Clinical Quality Measures [ No reported AMI, CVA or VTE this stay] Coding Level of Care Code 11819 Total time (in minutes) for Discharge: 45 Diagnoses Non-ST elevation [place] (NSTEMI) I21.4 Smoking addiction F17.200
== END 2023-04-26 15:41 | disposition home or self-care (01) | DRG 281 ==
LOC: ER 15:39 → CSU 18:04
PROVIDERS: Internal Medicine; Admitting Provider Internal Medicine; Emergency Provider Emergency Medicine; PCP Family Medicine; Visit Provider Internal Medicine
PROC: B2111ZZ Fluoroscopy of Multiple Coronary Arteries using Low Osmolar Contrast (ICD-10-PCS; principal; 2023-04-25 09:40)
DX: I21.4 Non-ST elevation (NSTEMI) myocardial infarction (principal); I74.5 Embolism and thrombosis of iliac artery; I10 Essential (primary) hypertension; R00.0 Tachycardia, unspecified; F17.200 Nicotine dependence, unspecified, uncomplicated; Z79.82 Long term (current) use of aspirin; J41.0 Simple chronic bronchitis; I25.10 Atherosclerotic heart disease of native coronary artery without angina pectoris
CPT/HCPCS: 36415; 71045; 71275; 75625; 75710; 80053; 80306; 83690; 83735; 83880; 84484; 85025; 85347; 85610; 87486; 87581; 87633; 93005; 93306; 93458; 96372; 96374; 96376; 99152; 99153; 99285; C1769; C1887; C1894; J1644; J1650; J2250; J3010; J3490; J7030; Q9967

== ENCOUNTER 2023-05-04 17:18 | Emergency (ER) | payer MEDICAID, SELFPAY ==
--- NOTE | 2023-05-04 17:19 | XRR_ITS ---
PROCEDURE INFORMATION: Exam: XR Chest Exam date and time: 05/04/2023 5:30 PM Age: 47 years old Clinical indication: Chest wall pain; Additional info: Cp TECHNIQUE: Imaging protocol: Radiologic exam of the chest. Views: 1 view. COMPARISON: CT angio chest PE protcl [id number] 04/24/2023 5:09 PM FINDINGS: Lungs: No focal consolidation. Mild emphysematous changes. Pleural spaces: No evidence of pneumothorax. No evidence of pleural effusion. Heart/Mediastinum: Mild prominence of the right hilum raising the question of right paratracheal adenopathy. Cardiomediastinal silhouette is otherwise within normal limits. Bones/joints: No evidence of acute osseous abnormality. XR/XR chest 1V portable [id number] IMPRESSION: 1. No acute cardiopulmonary abnormality. 2. Mild prominence of the right hilum raising the question of right paratracheal adenopathy. Correlation with CT may be helpful for further detail if clinically warranted.
--- NOTE | 2023-05-04 17:23 | ECG_ITS ---
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 [email or web address]
[2023-05-04 17:24] VITALS: BP 174/93; PULSE 82; RESP 16; TEMP 36.6; O2SAT 98
--- NOTE | 2023-05-04 17:35 | ED_ITS ---
Documented by User: Jesse Potter DO 05/06/23 05:02 HPI - Chest Pain 2 General: Chief Complaint: Chest Pain Stated Complaint: chest pain,numbness Time Seen by Provider: 05/04/23 17:30 Source: patient Mode of arrival: ambulatory History of Present Illness: 47-year-old male presents emergency room with complaint of chest pain rating to his arms bilaterally began while he was at rest. He was here in the hospital in April 24 at which time he had elevation of his troponins into the 900 range but his delta Tropin. Was +26 at his 2-hour delta but his 6-hour had dropped significantly by 148. He had a coronary angiogram done which showed no coronary artery disease he was discharged home he also had a peripheral angiogram done. He had numbness and tingling in his arms and shoulders earlier today this has completely resolved by the time I had seen the patient. He has no other focal symptoms he was discharged home on atorvastatin and aspirin and clopidogrel MD complaint: chest pain Onset (ago): minute(s) Timing of current episode: episodic Onset: during rest Pain location: substernal Pain radiation: right arm, left arm, left shoulder and right shoulder Severity: moderate Quality: aching and heaviness Relieving factors: nothing Exacerbating factors: nothing Associated symptoms: Deny abdominal pain, diaphoresis, dyspnea, fever(s), leg edema, nausea, palpitations, sense of impending doom, syncope or vomiting Review of Systems 2 Const: Denies: fever(s), chills or diaphoresis Card: Reports: chest pain; Denies: palpitations or syncope Resp: Denies: dyspnea GI: Denies: abdominal pain, nausea or vomiting : Denies: dysuria, urinary frequency or urinary urgency Musc: Denies: neck pain or back pain Skin/Breast: Denies: rash PFSH ED 2 PFSH: Medical History History of biliary stent insertion Pancreatitis Surgical History Hx of cholecystectomy Social History Smoking and tobacco/nicotine status: current every day tobacco/nicotine user Alcohol intake: never Substance/Drug Use: never Marital status: Single Physical Exam 2 Const: COMMON NORMALS: no acute distress GENERAL APPEARANCE: cooperative and comfortable ORIENTATION/CONSCIOUSNESS: Yes awake, Yes oriented to person, Yes oriented to place and Yes oriented to time HENMT: COMMON NORMALS: normocephalic, atraumatic and hearing grossly normal bilaterally HEAD & SCALP: normocephalic and atraumatic Resp: COMMON NORMALS: normal respiratory effort, No retractions, No use of accessory muscles and clear to auscultation bilaterally AUSCULTATION: clear to auscultation bilaterally Cardio: COMMON NORMALS: regular rate, regular rhythm and No murmurs present (Cardio) RATE: regular rate RHYTHM: regular rhythm GI: COMMON NORMALS: Soft to palpation and No hepatosplenomegaly present A USCULTATION: Yes normoactive bowel sounds PALPATION: Yes Soft to palpation, No Tenderness to palpation present (GI), No Guarding due to palpation present (GI) and Yes No hepatosplenomegaly present Extremity: COMMON NORMALS: normal to inspection, capillary refill normal, no clubbing, cyanosis or edema, no calf tenderness and no pedal edema Neuro: SENSORIUM/ORIENTATION: Yes oriented to person, Yes oriented to place and Yes oriented to time Skin: COMMON NORMALS: no rashes or lesions noted GENERAL SKIN EXAM: no rashes or lesions noted Course 2 Vital Signs: Vital signs: Vital Signs Temperature 97.9 F 05/04/23 17:24 Pulse Rate 85 05/04/23 20:32 Respiratory Rate 19 H 05/04/23 20:32 Blood Pressure 165/96 05/04/23 20:32 Pulse Oximetry 97 05/04/23 20:32 Oxygen Delivery Me thod Room Air 05/04/23 18:44 MDM - Chest Pain Medical Decision Making Care signed out to Dr. Sow at change of shift. See final notes for diagnosis and disposition. Patient was handed off to myself during shift change. Lab work was pending. Lab work revealed white count of 13.04 hemoglobin 15.2 BUN/creatinine of 11 and 1.2, troponin baseline at 33, troponin 2-hour of 37, for delta of 4, lipase 33, chest x-ray showed no acute cardiac abnormality. Patient was complaining of some mild nausea and swelling on the right side of his neck. Patient was given 4 mg of Zofran swelling in the right side of his neck which is due to a tense muscle. Patient will be discharged home to follow-up with his PCP. Lab Data 05/04/23 17:58 05/04/23 17:58 Radiology Impressions Chest X-Ray 05/04/23 17:19 IMPRESSION: 1. No acute cardiopulmonary abnormality. 2. Mild prominence of the right hilum raising the question of right paratracheal adenopathy. Correlation with CT may be helpful for further detail if clinically warranted. Laboratory Results WBC 13.04 10^3/uL (3.29-11.43) H 05/04/23 17:58 RBC 4.96 10^6/uL (3.85-5.65) 05/04/23 17:58 Hgb 15.20 g/dL (11.27-16.99) 05/04/23 17:58 Hct 44.6 % (37-53) 05/04/23 17:58 MCV 89.9 fl (82-101) 05/04/23 17:58 MCH 30.6 pg (27-33) 05/04/23 17:58 MCHC 34.1 g/dL (30-55) 05/04/23 17:58 RDW 13.3 % (12.1-15.1) 05/04/23 17:58 Plt Count 276 10^3/cmm (157-399) 05/04/23 17:58 MPV 9.9 fL (7.4-10.4) 05/04/23 17:58 Neut % (Auto) 79.5 % 05/04/23 17:58 Lymph % (Auto) 12.3 % 05/04/23 17:58 [place] % (Auto) 6.5 % 05/04/23 17:58 Eos % (Auto) 0.8 % 05/04/23 17:58 Baso % (Auto) 0.5 % 05/04/23 17:58 Neut # (Auto) 10.36 10^3/uL (1.8-7.7) H 05/04/23 17:58 Lymph # (Auto) 1.6 10^3/uL (0.8-4.8) 05/04/23 17:58 [place] # (Auto) 0.9 10^3/uL (0.2-0.9) 05/04/23 17:58 Eos # (Auto) 0.1 10^3/uL (0.0-0.8) 05/04/23 17:58 Baso # (Auto) 0.1 10^3/uL (0.0-0.1) 05/04/23 17:58 Nucleated RBC % (auto) 0 % 05/04/23 17:58 Nucleated RBCs # 0.0 /100WBC 05/04/23 17:58 PT 12.70 SECONDS (12.1-14.9) 05/04/23 17:58 INR 0.93 (0.8-1.2) 05/04/23 17:58 Sodium 138 mmol/L (136-145) 05/04/23 17:58 Potassium 3.6 mmol/L (3.5-5.1) 05/04/23 17:58 Chloride 101 mmol/L (98-107) 05/04/23 17:58 Carbon Dioxide 26 mmol/L (22-29) 05/04/23 17:58 Anion Gap 14.6 (5-19) 05/04/23 17:58 BUN 11 mg/dL (6-20) 05/04/23 17:58 Creatinine 1.2 mg/dL (0.7-1.2) 05/04/23 17:58 GFR Calculation 64.9 mL/min (90-130) L 05/04/23 17:58 Glucose 115 mg/dL (65-115) 05/04/23 17:58 Calculated Osmolality 286 mOsm/kg (285-295) 05/04/23 17:58 Calcium 8.9 mg/dL (8.5-10.5) 05/04/23 17:58 Total Bilirubin 0.4 mg/dL (0.15-1.2) 05/04/23 17:58 AST 30 U/L (0-40) 05/04/23 17:58 ALT 40 U/L (0-41) 05/04/23 17:58 Alkaline Phosphatase 170 U/L (40-130) H 05/04/23 17:58 Troponin T Baseline 33 ng/L (0-15) H 05/04/23 17:58 Troponin T 120 Minute 37.74 ng/L (0-15) H 05/04/23 19:26 Delta Troponin T 4.74 ABS# (0-10) 05/04/23 19:26 Total Protein 6.7 g/dL (6.6-8.7) 05/04/23 17:58 Albumin 3.7 g/dL (3.5-5.2) 05/04/23 17:58 Globulin 3.0 g/dL (1.3-4.6) 05/04/23 17:58 Lipase 33 U/L (13-60) 05/04/23 17:58 Discharge Plan Discharge Patient Disposition: Home Clinical Impression: Chest pain Qualifiers: Chest pain type: unspecified Qualified Code(s): R07.9 - Chest pain, unspecified Condition: Stable Prescriptions: No Action (DME) Cam Boot to the Left See Rx Instructions .Route .MEDSUPPLY Qty: 1 0RF Rx Instructions: As directed Nexium 20 mg Capsule,Delayed Release(Dr/Ec) 40 mg PO QAM aspirin 81 mg capsule 81 mg PO DAILY Qty: 90 0RF atorvastatin 40 mg Tablet 40 mg PO BEDTIME Qty: 90 0RF clopidogrel 75 mg Tablet 75 mg PO DAILY Qty: 90 0RF nitroglycerin 0.4 mg Tablet, Sublingual 0.4 mg sublingual Q5M PRN (Reason: Chest Pain) Qty: 25 0RF metoprolol tartrate 25 mg Tablet 25 mg PO BID@0900,2100 Qty: 180 0RF nicotine 21 mg/24 hr patch 24 hour 1 patch transdermal DAILY Qty: 28 3RF nicotine (polacrilex) 4 mg lozenge 4 mg buccal Q2H PRN (Reason: nicotine cravings) Qty: 81 3RF Rx Instructions: Do not exceed 20 in a day. Discharge Orders: Discharge ED (Routine); Ordered 05/04/23 Ordered By: Omkar Sow Referrals: Jayden Arreola MD [Primary Care Provider] - 1 week Activity Restrictions/Additional Instructions: Your evaluation in ER did not reveal an acute cardiac cause of your chest pain. Your cardiac enzymes were stable. The swelling on the right side of her neck appeared to be muscle that is tense. You are given Zofran for your nausea. Please take all your medicine as directed. Please follow-up with your primary care doctor and/or senior director insight within the next 7 to 10 days for further evaluation and treatment. You may use ice and heat for your neck pain. If your pain with changes or worsens please return to the ER for further evaluation. Coding Level of Care Code ED Timber Treatment Plant Operator for Chg Fwd Documented by User: Omkar Sow DO 05/04/23 23:13 HPI - Chest Pain 2 General: Chief Complaint: Chest Pain Stated Complaint: chest pain,numbness Time Seen by Provider: 05/04/23 17:30 PFSH ED 2 PFSH: Medical History History of biliary stent insertion Pancreatitis Surgical History Hx of cholecystectomy Social History Smoking and tobacco/nicotine status: current every day tobacco/nicotine user Alcohol intake: never Substance/Drug Use: never Marital status: Single Course 2 Vital Signs: Vital signs: Vital Signs Temperature 97.9 F 05/04/23 17:24 Pulse Rate 85 05/04/23 20:32 Respiratory Rate 19 H 05/04/23 20:32 Blood Pressure 165/96 05/04/23 20:32 Pulse Oximetry 97 05/04/23 20:32 Oxygen Delivery Me thod Room Air 05/04/23 18:44 MDM - Chest Pain Medical Decision Making Patient was handed off to myself during shift change. Lab work was pending. Lab work revealed white count of 13.04 hemoglobin 15.2 BUN/creatinine of 11 and 1.2, troponin baseline at 33, troponin 2-hour of 37, for delta of 4, lipase 33, chest x-ray showed no acute cardiac abnormality. Patient was complaining of some mild nausea and swelling on the right side of his neck. Patient was given 4 mg of Zofran swelling in the right side of his neck which is due to a tense muscle. Patient will be discharged home to follow-up with his PCP. Lab Data 05/04/23 17:58 05/04/23 17:58 Radiology Impressions Chest X-Ray 05/04/23 17:19 IMPRESSION: 1. No acute cardiopulmonary abnormality. 2. Mild prominence of the right hilum raising the question of right paratracheal adenopathy. Correlation with CT may be helpful for further detail if clinically warranted. Laboratory Results WBC 13.04 10^3/uL (3.29-11.43) H 05/04/23 17:58 RBC 4.96 10^6/uL (3.85-5.65) 05/04/23 17:58 Hgb 15.20 g/dL (11.27-16.99) 05/04/23 17:58 Hct 44.6 % (37-53) 05/04/23 17:58 MCV 89.9 fl (82-101) 05/04/23 17:58 MCH 30.6 pg (27-33) 05/04/23 17:58 MCHC 34.1 g/dL (30-55) 05/04/23 17:58 RDW 13.3 % (12.1-15.1) 05/04/23 17:58 Plt Count 276 10^3/cmm (157-399) 05/04/23 17:58 MPV 9.9 fL (7.4-10.4) 05/04/23 17:58 Neut % (Auto) 79.5 % 05/04/23 17:58 Lymph % (Auto) 12.3 % 05/04/23 17:58 [place] % (Auto) 6.5 % 05/04/23 17:58 Eos % (Auto) 0.8 % 05/04/23 17:58 Baso % (Auto) 0.5 % 05/04/23 17:58 Neut # (Auto) 10.36 10^3/uL (1.8-7.7) H 05/04/23 17:58 Lymph # (Auto) 1.6 10^3/uL (0.8-4.8) 05/04/23 17:58 [place] # (Auto) 0.9 10^3/uL (0.2-0.9) 05/04/23 17:58 Eos # (Auto) 0.1 10^3/uL (0.0-0.8) 05/04/23 17:58 Baso # (Auto) 0.1 10^3/uL (0.0-0.1) 05/04/23 17:58 Nucleated RBC % (auto) 0 % 05/04/23 17:58 Nucleated RBCs # 0.0 /100WBC 05/04/23 17:58 PT 12.70 SECONDS (12.1-14.9) 05/04/23 17:58 INR 0.93 (0.8-1.2) 05/04/23 17:58 Sodium 138 mmol/L (136-145) 05/04/23 17:58 Potassium 3.6 mmol/L (3.5-5.1) 05/04/23 17:58 Chloride 101 mmol/L (98-107) 05/04/23 17:58 Carbon Dioxide 26 mmol/L (22-29) 05/04/23 17:58 Anion Gap 14.6 (5-19) 05/04/23 17:58 BUN 11 mg/dL (6-20) 05/04/23 17:58 Creatinine 1.2 mg/dL (0.7-1.2) 05/04/23 17:58 GFR Calculation 64.9 mL/min (90-130) L 05/04/23 17:58 Glucose 115 mg/dL (65-115) 05/04/23 17:58 Calculated Osmolality 286 mOsm/kg (285-295) 05/04/23 17:58 Calcium 8.9 mg/dL (8.5-10.5) 05/04/23 17:58 Total Bilirubin 0.4 mg/dL (0.15-1.2) 05/04/23 17:58 AST 30 U/L (0-40) 05/04/23 17:58 ALT 40 U/L (0-41) 05/04/23 17:58 Alkaline Phosphatase 170 U/L (40-130) H 05/04/23 17:58 Troponin T Baseline 33 ng/L (0-15) H 05/04/23 17:58 Troponin T 120 Minute 37.74 ng/L (0-15) H 05/04/23 19:26 Delta Troponin T 4.74 ABS# (0-10) 05/04/23 19:26 Total Protein 6.7 g/dL (6.6-8.7) 05/04/23 17:58 Albumin 3.7 g/dL (3.5-5.2) 05/04/23 17:58 Globulin 3.0 g/dL (1.3-4.6) 05/04/23 17:58 Lipase 33 U/L (13-60) 05/04/23 17:58 XR interpretation done by ED provider, pending radiology final review Discharge Plan Discharge Patient Disposition: Home Clinical Impression: Chest pain Qualifiers: Chest pain type: unspecified Qualified Code(s): R07.9 - Chest pain, unspecified Condition: Stable Prescriptions: No Action (DME) Cam Boot to the Left See Rx Instructions .Route .MEDSUPPLY Qty: 1 0RF Rx Instructions: As directed Nexium 20 mg Capsule,Delayed Release(Dr/Ec) 40 mg PO QAM aspirin 81 mg capsule 81 mg PO DAILY Qty: 90 0RF atorvastatin 40 mg Tablet 40 mg PO BEDTIME Qty: 90 0RF clopidogrel 75 mg Tablet 75 mg PO DAILY Qty: 90 0RF nitroglycerin 0.4 mg Tablet, Sublingual 0.4 mg sublingual Q5M PRN (Reason: Chest Pain) Qty: 25 0RF metoprolol tartrate 25 mg Tablet 25 mg PO BID@0900,2100 Qty: 180 0RF nicotine 21 mg/24 hr patch 24 hour 1 patch transdermal DAILY Qty: 28 3RF nicotine (polacrilex) 4 mg lozenge 4 mg buccal Q2H PRN (Reason: nicotine cravings) Qty: 81 3RF Rx Instructions: Do not exceed 20 in a day. Discharge Orders: Discharge ED (Routine); Ordered 05/04/23 Ordered By: Omkar Sow Referrals: Jayden Arreola MD [Primary Care Provider] - 1 week Activity Restrictions/Additional Instructions: Your evaluation in ER did not reveal an acute cardiac cause of your chest pain. Your cardiac enzymes were stable. The swelling on the right side of her neck appeared to be muscle that is tense. You are given Zofran for your nausea. Please take all your medicine as directed. Please follow-up with your primary care doctor and/or senior director insight within the next 7 to 10 days for further evaluation and treatment. You may use ice and heat for your neck pain. If your pain with changes or worsens please return to the ER for further evaluation. Coding Level of Care Code ED Timber Treatment Plant Operator for Jayla Howard
[2023-05-04 18:00] VITALS: BP 152/95; PULSE 98; O2SAT 97
[2023-05-04 18:08] LABS: Basophils # 0.1 10^3/uL (0.0-0.1); Basophils % 0.5 %; Eosinophils # 0.1 10^3/uL (0.0-0.8); Eosinophils % 0.8 %; Hematocrit 44.6 % (37-53); Lymphocytes # 1.6 10^3/uL (0.8-4.8); Lymphocytes % 12.3 %; Mean Corpuscular HGB Conc 34.1 g/dL (30-55); Mean Corpuscular Hemoglobin 30.6 pg (27-33); Mean Corpuscular Volume 89.9 fl (82-101); Mean Platelet Volume 9.9 fL (7.4-10.4); Monocytes # 0.9 10^3/uL (0.2-0.9); Monocytes % 6.5 %; Neutrophils # 10.36 10^3/uL (1.8-7.7); Neutrophils % 79.5 %; Nucleated Red Blood Cells % 0 %; Platelet Count 276 10^3/cmm (157-399); Red Blood Count 4.96 10^6/uL (3.85-5.65); Red Cell Distribution Width 13.3 % (12.1-15.1); White Blood Count 13.04 10^3/uL (3.29-11.43)
[2023-05-04] MEDS: aspirin 81 mg Chew Tablet 324 MG PO (18:08)
[2023-05-04 18:24] LABS: INR 0.93 (0.8-1.2)
[2023-05-04 18:44] VITALS: BP 152/93; PULSE 82; O2SAT 95
[2023-05-04 18:46] LABS: Troponin(5th) Baseline 33 ng/L (0-15)
[2023-05-04 18:54] LABS: Alanine Aminotransferase 40 U/L (0-41); Albumin Level 3.7 g/dL (3.5-5.2); Alkaline Phosphatase 170 U/L (40-130); Anion Gap 14.6 (5-19); Aspartate Amino Transferase 30 U/L (0-40); Blood Urea Nitrogen 11 mg/dL (6-20); Calcium 8.9 mg/dL (8.5-10.5); Carbon Dioxide 26 mmol/L (22-29); Chloride 101 mmol/L (98-107); Glomerular Filtration Rate 64.9 mL/min (90-130); Glucose 115 mg/dL (65-115); Lipase 33 U/L (13-60); Osmolality Calculated 286 mOsm/kg (285-295); Potassium 3.6 mmol/L (3.5-5.1); Sodium 138 mmol/L (136-145); Total Bilirubin 0.4 mg/dL (0.15-1.2); Total Protein 6.7 g/dL (6.6-8.7)
[2023-05-04 19:48] LABS: Troponin 5 2HR 37.74 ng/L (0-15); Troponin 5 2HR Delta 4.74 ABS# (0-10)
[2023-05-04] MEDS: ondansetron 4 MG Tablet PO (20:16)
[2023-05-04 20:32] VITALS: BP 165/96; PULSE 85; RESP 19; O2SAT 97
[2023-05-04] MEDS: metoprolol tartrate 25 mg Tablet PO (20:37)
--- NOTE | 2023-05-04 20:46 | PC.NURSE ---
Pt. was angry about being discharged home, due to the patient still experiencing numbness. Dr. Sow spoke with patient and family and they were encouraged to follow up with their primary doctor and garment inspector.
== END 2023-05-04 20:48 | disposition home or self-care (01) ==
PROVIDERS: Emergency Medicine; Emergency Provider Family Medicine; PCP Family Medicine
DX: R07.9 Chest pain, unspecified (principal); Z79.02 Long term (current) use of antithrombotics/antiplatelets; Z79.82 Long term (current) use of aspirin; Z72.0 Tobacco use
CPT/HCPCS: 36415; 71045; 80053; 83690; 84484; 85025; 85610; 93005; 99285; Q0162

== ENCOUNTER 2023-06-14 00:06 | Emergency (ER) | payer MEDICAID, SELFPAY ==
[2023-06-14] VITALS (8 sets, daily range): BP systolic 137–205; BP diastolic 97–124; PULSE 96–113; RESP 16–18; TEMP 36.6; O2SAT 96–99; BMI 23.6
[2023-06-14] MEDS: amlodipine 10 mg Tablet PO (01:08)
[2023-06-14] MEDS: hyDRALAzine 20 mg/mL INJ 1 mL 10 MG IVP ×2 (01:22→02:18)
[2023-06-14 01:29] LABS: Basophils # 0.1 10^3/uL (0.0-0.1); Basophils % 0.6 %; Eosinophils # 0.3 10^3/uL (0.0-0.8); Eosinophils % 2.8 %; Hematocrit 46.6 % (37-53); Lymphocytes # 2.7 10^3/uL (0.8-4.8); Mean Corpuscular HGB Conc 33.7 g/dL (30-55); Mean Corpuscular Hemoglobin 30.5 pg (27-33); Mean Corpuscular Volume 90.7 fl (82-101); Mean Platelet Volume 9.4 fL (7.4-10.4); Monocytes % 8.8 %; Neutrophils # 6.77 10^3/uL (1.8-7.7); Neutrophils % 62.4 %; Nucleated Red Blood Cells % 0 %; Platelet Count 214 10^3/cmm (157-399); Red Blood Count 5.14 10^6/uL (3.85-5.65); Red Cell Distribution Width 13.3 % (12.1-15.1); White Blood Count 10.85 10^3/uL (3.29-11.43)
--- NOTE | 2023-06-14 01:30 | ECG_ITS ---
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 Measurements Intervals [place] Rate: 103 P: 59 TN: 150 QRS: 28 QRSD: 94 T: 90 QT: 349 QTc: 458 Interpretive Statements SINUS TACHYCARDIA POSSIBLE LEFT ATRIAL ENLARGEMENT [-0.1mV P-WAVE IN V1/V2] SEPTAL MYOCARDIAL INFARCTION , OF INDETERMINATE AGE [40+ ms Q WAVE IN V1/V2] Compared to ECG 05/04/2023 17:23:43 Ventricular premature complex(es) no longer present Myocardial infarct finding still present Electronically Signed On 06-14-2023 16:52:18 CDT by Beni Wong M.D. [id number]
[2023-06-14 01:47] LABS: Alanine Aminotransferase 112 U/L (0-41); Albumin Level 4.2 g/dL (3.5-5.2); Alkaline Phosphatase 174 U/L (40-130); Aspartate Amino Transferase 62 U/L (0-40); Blood Urea Nitrogen 11 mg/dL (6-20); Calcium 9.1 mg/dL (8.5-10.5); Carbon Dioxide 29 mmol/L (22-29); Chloride 101 mmol/L (98-107); Creatinine Clr Calc Pharmacy 86.5853; Globulin 2.6 g/dL (1.3-4.6); Glomerular Filtration Rate 71.8 mL/min (90-130); Glucose 100 mg/dL (65-115); Osmolality Calculated 289 mOsm/kg (285-295); Sodium 140 mmol/L (136-145); Total Bilirubin 0.5 mg/dL (0.15-1.2); Total Protein 6.8 g/dL (6.6-8.7)
[2023-06-14] MEDS: LORazepam 2 mg/mL INJ 10 mL MDV 1 MG IVP (01:52)
--- NOTE | 2023-06-14 02:06 | ED_ITS ---
HPI - Anxiety 2 General: Chief Complaint: Anxiety Stated Complaint: anxiety,dizzy, lack of sleep for 3 days Time Seen by Provider: 06/14/23 00:17 History of Present Illness: 47-year-old male presents emergency depa rtment stating that he has significant anxiety since he had his heart attack March 2023. He states he has seen his primary care provider and was initially taking BuSpar but was recently switched to hydroxyzine and he states that he did take a 25 mg dose earlier today and he states he felt like it initially helped but since that time when he attempted to go to bed he started having significant anxiety and elevated blood pressure with a systolic over 200. He denies chest pain at present. He denies nausea, vomiting or shortness of breath. He states he did feel so anxious that he started feeling dizzy. He states that he has not been able to sleep very well for the previous 3 days because of his anxiety. Associated symptoms: Deny chest pain Review of Systems 2 General: Reports: 10 or more systems reviewed and unremarkable except in HPI and below Card: Reports: other (Uncontrolled hypertension); Denies: chest pain Psych: Reports: anxiety and sleeping less PFS ED 2 PFSH: Medical History (Updated 06/14/23 @ 02:13 by Yonis Henderson MD) Iliac artery occlusion, right external iliac History of biliary stent insertion Pancreatitis Surgical History Hx of cholecystectomy Social History Smoking and tobacco/nicotine status: current every day tobacco/nicotine user Alcohol intake: never Substance/Drug Use: never Marital status: Single Physical Exam 2 Narrative: EXAM NARRATIVE: Constitutional: the patient appears well nourished and of normal development. Vital signs as documented. No acute distress at present. Alert and oriented-to person, place, time and situation. Head, eyes, ears, nose, mouth, throat: Normocephalic, atraumatic. Pupils-equal, round, reactive to light. No scleral icterus. Normal-appearing external ears. Normal appearing nasal turbinates, no drainage. No obvious oral lesions, posterior oropharynx without erythema or exudates. Neck: Supple, trachea is midline, no lymphadenopathy, no jugular venous distension, thyromegaly, or carotid bruits. Carotid upstrokes are brisk bilaterally. Lungs: clear to auscultation to all lung scott. Symmetrical rise and fall of chest, no obvious signs of increased work of breathing at present. Cardiac: Sinus tachycardia, positive S1, S2. No murmurs, rubs or gallops that I can appreciate Abdomen: Soft, non-tender to palpation, normal active bowel sounds to all quadrants. No palpable masses, no organomegaly and abdominal bruits. Extremities: 2+ pulses in the upper extremities that are equal bilaterally, 2+ pulses in the lower extremities that are equal bilaterally. Non-edematous. Moves all extremities well, sensation to all extremities are noted. Skin: Warm, dry, intact. Psych: Anxious, cooperative, normal thought pattern, judgment intact. Course 2 Vital Signs: Vital signs: Vital Signs Temperature 97.9 F 06/14/23 00:12 Pulse Rate 113 H 06/14/23 02:30 Respiratory Rate 18 06/14/23 02:30 Blood Pressure 137/97 06/14/23 02:30 Pulse Oximetry 97 06/14/23 02:30 Oxygen Delivery Me thod Room Air 06/14/23 00:12 MDM - Anxiety Medical Decision Making Physical exam completed and documented I will provide the patient by mouth Norvasc and hydralazine IV given his significantly elevated blood pressure. I will also provide the patient IV Ativan for his anxiety. I discussed the importance of following up with his primary care provider and also psychiatry to get established for treatment of his anxiety. Given the patient's heart rate of 90-103 and his elevated blood pressure I suspect that he is not therapeutic on his metoprolol. His CBC and CMP are essentially unremarkable his twelve-lead EKG has no ST elevation or depression and essentially demonstrates sinus tachycardia. Medical Records I reviewed the patient's medical records. Lab Data I reviewed the patient's lab results. 06/14/23 01:23 06/14/23 01:23 Laboratory Results WBC 10.85 10^3/uL (3.29-11.43) 06/14/23: RBC 5.14 10^6/uL (3.85-5.65) 06/14/23 01:23 Hgb 15.70 g/dL (11.27-16.99) 06/14/23 01: Hct 46.6 % (37-53) 06/14/23 01:23 MCV 90.7 fl (82-101) 06/14/23 01:23 MCH 30.5 pg (27-33) 06/14/23 01: MCHC 33.7 g/dL (30-55) 06/14/23 01: RDW 13.3 % (12.1-15.1) 06/14/23 01:23 Plt Count 214 10^3/cmm (157-399) 06/14/23 01:23 MPV 9.4 fL (7.4-10.4) 06/14/23 01:23 Neut % (Auto) 62.4 % 06/14/23 01:23 Lymph % (Auto) 25.0 % 06/14/23 01:23 [place] % (Auto) 8.8 % 06/14/23 01: Eos % (Auto) 2.8 % 06/14/23 01: Baso % (Auto) 0.6 % 06/14/23 01: Neut # (Auto) 6.77 10^3/uL (1.8-7.7) 06/14/23 01:23 Lymph # (Auto) 2.7 10^3/uL (0.8-4.8) 06/14/23 01:23 [place] # (Auto) 1.0 10^3/uL (0.2-0.9) H 06/14/23 01:23 Eos # (Auto) 0.3 10^3/uL (0.0-0.8) 06/14/23 01:23 Baso # (Auto) 0.1 10^3/uL (0.0-0.1) 06/14/23 01:23 Nucleated RBC % (auto) 0 % 06/14/23 01: Nucleated RBCs # 0.0 /100WBC 06/14/23 01:23 Sodium 140 mmol/L (136-145) 06/14/23 01:23 Potassium 4.5 mmol/L (3.5-5.1) 06/14/23 01:23 Chloride 101 mmol/L (98-107) 06/14/23 01:23 Carbon Dioxide 29 mmol/L (22-29) 06/14/23 01:23 Anion Gap 14.5 (5-19) 06/14/23 01:23 BUN 11 mg/dL (6-20) 06/14/23 01:23 Creatinine 1.1 mg/dL (0.7-1.2) 06/14/23 01:23 GFR Calculation 71.8 mL/min (90-130) L 06/14/23 01:23 Glucose 100 mg/dL (65-115) 06/14/23 01:23 Calculated Osmolality 289 mOsm/kg (285-295) 06/14/23 01:23 Calcium 9.1 mg/dL (8.5-10.5) 06/14/23 01:23 Total Bilirubin 0.5 mg/dL (0.15-1.2) 06/14/23 01:23 AST 62 U/L (0-40) H 06/14/23 01:23 ALT 112 U/L (0-41) H 06/14/23 01:23 Alkaline Phosphatase 174 U/L (40-130) H 06/14/23 01:23 Total Protein 6.8 g/dL (6.6-8.7) 06/14/23 01:23 Albumin 4.2 g/dL (3.5-5.2) 06/14/23 01:23 Globulin 2.6 g/dL (1.3-4.6) 06/14/23 01:23 No radiology studies performed this visit EKG Data EKG 1: Interpretation: Twelve-lead EKG obtained at 0130 and reviewed at 0 134 demonstrates sinus tachycardia with a ventricular rate of 103, [place] interval 150, QRS duration 94, QT 349, QTc [address] elevation or depression to demonstrate acute ischemia or infarction at present. Discharge Plan Discharge Patient Disposition: Home Clinical Impression: Hypertension, uncontrolled, Anxiety Condition: Stable Prescriptions: New metoprolol tartrate 50 mg tablet 50 mg PO BID Qty: 60 0RF No Action (DME) Cam Boot to the Left See Rx Instructions .Route .MEDSUPPLY Qty: 1 0RF Rx Instructions: As directed losartan 50 mg tablet 25 mg PO DAILY Qty: 30 1RF Hold Instructions: Home Medication placed on hold at Doctor's office buspirone 30 mg tablet 30 mg PO TID Qty: 90 3RF Nexium 20 mg Capsule,Delayed Release(Dr/Ec) 40 mg PO QAM aspirin 81 mg capsule 81 mg PO DAILY Qty: 90 0RF atorvastatin 40 mg Tablet 40 mg PO BEDTIME Qty: 90 0RF clopidogrel 75 mg Tablet 75 mg PO DAILY Qty: 90 0RF nitroglycerin 0.4 mg Tablet, Sublingual 0.4 mg sublingual Q5M PRN (Reason: Chest Pain) Qty: 25 0RF metoprolol tartrate 25 mg Tablet 25 mg PO BID@0900,2100 Qty: 180 0RF nicotine 21 mg/24 hr patch 24 hour 1 patch transdermal DAILY Qty: 28 3RF nicotine (polacrilex) 4 mg lozenge 4 mg buccal Q2H PRN (Reason: nicotine cravings) Qty: 81 3RF Rx Instructions: Do not exceed 20 in a day. Discharge Orders: Discharge ED (Routine); Ordered 06/14/23 Ordered By: Yonis Henderson Referrals: Jayden Arreola MD [Primary Care Provider] - Discharge Diet: Cardiac and Low Salt Discharge Activity: Resume usual activity Patient Instructions: Opioid Safety, Pain Management Activity Restrictions/Additional Instructions: Activity Restrictions/Additional Instructions: Thank you for choosing [facility] for your healthcare needs today. Please realize that you were seen in the Emergency Department and that we are providing you with an emergency medical screening exam and this may not be a complete and all inclusive of all the testing and or medical work-up that you may need to determine your ailment or severity of your illness. It is very important that you follow-up as instructed with your Primary care provider or Specialist for additional evaluation and to discuss your medical treatment plan. You may return to the Emergency Department should you have concerns or if your condition changes or worsens in any way. Coding Level of Care Code ED Microwave Engineer for Jayla Howard
[2023-06-14 02:19] LABS: Anion Gap 14.5 (5-19); Potassium 4.5 mmol/L (3.5-5.1)
== END 2023-06-14 02:34 | disposition home or self-care (01) ==
PROVIDERS: Emergency Provider Internal Medicine; PCP Family Medicine
DX: F41.9 Anxiety disorder, unspecified (principal); I10 Essential (primary) hypertension; Z79.02 Long term (current) use of antithrombotics/antiplatelets; Z79.82 Long term (current) use of aspirin; Z72.0 Tobacco use
CPT/HCPCS: 80053; 85025; 93005; 96374; 96375; 96376; 99284; J0360; J2060

== ENCOUNTER 2023-10-21 15:12 | Inpatient (IN) | payer BC, SELFPAY ==
[2023-10-21] VITALS (13 sets, daily range): BP systolic 65–129; BP diastolic 40–96; PULSE 49–93; RESP 10–19; TEMP 36.6–36.9; O2SAT 96–100
--- NOTE | 2023-10-21 15:22 | ECG_ITS ---
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 Measurements Intervals [place] Rate: 67 P: 36 [place]: 151 QRS: 21 QRSD: 92 T: 82 QT: 405 QTc: 430 Interpretive Statements SINUS RHYTHM NONSPECIFIC T-WAVE ABNORMALITY Compared to ECG 06/14/2023 01:30:34 T-wave abnormality now present Sinus tachycardia no longer present Myocardial infarct finding no longer present Electronically Signed On 10-21-2023 16:18:02 CDT by Ginna Caraballo M.D. [id number]
--- NOTE | 2023-10-21 16:46 | XRR_ITS ---
PROCEDURE INFORMATION: Exam: XR Chest Exam date and time: 10/21/2023 5:16 PM Age: 48 years old Clinical indication: Cough and dyspnea; Patient HX: Dyspnea; Cough; Low BP TECHNIQUE: Imaging protocol: Radiologic exam of the chest. Views: 1 view. COMPARISON: CR XR chest 1V portable [id number] 05/04/2023 5:30 PM FINDINGS: Lungs: No consolidation. Emphysema. Pleural spaces: Pleural-parenchymal scarring of the left lung apex. No pleural effusion. No pneumothorax. Heart/Mediastinum: Unremarkable. No cardiomegaly. Bones/joints: Unremarkable. XR/XR chest 1V portable [id number] IMPRESSION: No acute findings.
--- NOTE | 2023-10-21 17:02 | ED_ITS ---
Documented by User: Jesse Potter DO 10/21/23 18:21 HPI - Arrhythmia/Palpitations 2 General: Chief Complaint: Arrhythmia/Palpitations Stated Complaint: Blood Pressure drop Time Seen by Provider: 10/21/23 16:45 History of Present Illness: 48-year-old male presents emergency room complaining of low blood pressure some chest discomfort. Earlier today he had very high blood pressure he took the clonidine as count of a rescue medication for his elevated blood pressure developed chest discomfort lightheadedness dizziness felt like his blood pressure bottomed out he called some family EMS was called and he was evaluated at home then brought in by family EMS advised that he get checked out further. By the time he arrives here he is symptom-free and his blood pressure is improved significantly. No other recent change in blood pressure medications no chest pain at the time of arrival. Review of Systems 2 Const: Denies: fever(s) or chills Card: Reports: chest pain and palpitations Resp: Denies: dyspnea GI: Denies: abdominal pain : Denies: dysuria, urinary frequency or urinary urgency Musc: Denies: neck pain or back pain Skin/Breast: Denies: rash PFSH ED 2 PFSH: Medical History Iliac artery occlusion, right external iliac History of biliary stent insertion Pancreatitis Surgical History Hx of cholecystectomy Social History Smoking and tobacco/nicotine status: current every day tobacco/nicotine user Alcohol intake: never Substance/Drug Use: never Marital status: Single Physical Exam 2 Const: COMMON NORMALS: no acute distress GENERAL APPEARANCE: cooperative and comfortable ORIENTATION/CONSCIOUSNESS: Yes awake, Yes oriented to person, Yes oriented to place and Yes oriented to time HENMT: COMMON NORMALS: normocephalic, atraumatic and hearing grossly normal bilaterally HEAD & SCALP: normocephalic and atraumatic Resp: COMMON NORMALS: normal respiratory effort, No retractions, No use of accessory muscles and clear to auscultation bilaterally AUSCULTATION: clear to auscultation bilaterally Cardio: COMMON NORMALS: regular rate, regular rhythm and No murmurs present (Cardio) RATE: regular rate RHYTHM: regular rhythm GI: COMMON NORMALS: Soft to palpation and No hepatosplenomegaly present A USCULTATION: Yes normoactive bowel sounds PALPATION: Yes Soft to palpation, No Tenderness to palpation present (GI), No Guarding due to palpation present (GI) and Yes No hepatosplenomegaly present Extremity: COMMON NORMALS: normal to inspection, capillary refill normal, no clubbing, cyanosis or edema, no calf tenderness and no pedal edema Neuro: SENSORIUM/ORIENTATION: Yes oriented to person, Yes oriented to place and Yes oriented to time Skin: COMMON NORMALS: no rashes or lesions noted GENERAL SKIN EXAM: no rashes or lesions noted Course 2 Vital Signs: Vital signs: Vital Signs Temperature 98.4 F 10/21/23 15:18 Pulse Rate 89 10/21/23 18:48 Respiratory Rate 14 10/21/23 15:18 Blood Pressure 115/76 10/21/23 18:48 Pulse Oximetry 100 10/21/23 18:48 Oxygen Delivery Me thod Room Air 10/21/23 18:48 MDM - Arrhythmia/Palpitations Medical Decision Making Care signed out to Dr. Doyle at change of shift. See final notes for diagnosis and disposition. Lab Data 10/21/23 17:17 10/21/23 17:17 Radiology Impressions Chest X-Ray 10/21/23 16:46 IMPRESSION: No acute findings. Laboratory Results WBC 11.32 10^3/uL (3.29-11.43) 10/21/23 17:17 RBC 4.83 10^6/uL (3.85-5.65) 10/21/23 17:17 Hgb 15.10 g/dL (11.27-16.99) 10/21/23 17:17 Hct 44.5 % (37-53) 10/21/23 17:17 MCV 92.1 fl (82-101) 10/21/23 17:17 MCH 31.3 pg (27-33) 10/21/23 17:17 MCHC 33.9 g/dL (30-55) 10/21/23 17:17 RDW 13.5 % (12.1-15.1) 10/21/23 17:17 Plt Count 216 10^3/cmm (157-399) 10/21/23 17:17 MPV 9.0 fL (7.4-10.4) 10/21/23 17:17 Neut % (Auto) 75.1 % 10/21/23 17:17 Lymph % (Auto) 17.2 % 10/21/23 17:17 [place] % (Auto) 6.0 % 10/21/23 17:17 Eos % (Auto) 1.0 % 10/21/23 17:17 Baso % (Auto) 0.4 % 10/21/23 17:17 Neut # (Auto) 8.50 10^3/uL (1.8-7.7) H 10/21/23 17:17 Lymph # (Auto) 2.0 10^3/uL (0.8-4.8) 10/21/23 17:17 [place] # (Auto) 0.7 10^3/uL (0.2-0.9) 10/21/23 17:17 Eos # (Auto) 0.1 10^3/uL (0.0-0.8) 10/21/23 17:17 Baso # (Auto) 0.1 10^3/uL (0.0-0.1) 10/21/23 17:17 Nucleated RBC % (auto) 0 % 10/21/23 17:17 Nucleated RBCs # 0.0 /100WBC 10/21/23 17:17 Sodium 136 mmol/L (136-145) 10/21/23 17:17 Potassium 4.3 mmol/L (3.5-5.1) 10/21/23 17:17 Chloride 98 mmol/L (98-107) 10/21/23 17:17 Carbon Dioxide 28 mmol/L (22-29) 10/21/23 17:17 Anion Gap 14.3 (5-19) 10/21/23 17:17 BUN 12 mg/dL (6-20) 10/21/23 17:17 Creatinine 1.0 mg/dL (0.7-1.2) 10/21/23 17:17 GFR Calculation 79.8 mL/min (90-130) L 10/21/23 17:17 Glucose 106 mg/dL (65-115) 10/21/23 17:17 Calculated Osmolality 282 mOsm/kg (285-295) L 10/21/23 17:17 Calcium 8.9 mg/dL (8.5-10.5) 10/21/23 17:17 Total Bilirubin 0.8 mg/dL (0.15-1.2) 10/21/23 17:17 AST 25 U/L (0-40) 10/21/23 17:17 ALT 28 U/L (0-41) 10/21/23 17:17 Alkaline Phosphatase 122 U/L (40-130) 10/21/23 17:17 Troponin T Baseline 7 ng/L (0-15) 10/21/23 17:17 Troponin T 120 Minute 6.86 ng/L (0-15) 10/21/23 19:24 Delta Troponin T -0.14 ABS# (0-10) L 10/21/23 19:24 Total Protein 7.3 g/dL (6.6-8.7) 10/21/23 17:17 Albumin 4.2 g/dL (3.5-5.2) 10/21/23 17:17 Globulin 3.1 g/dL (1.3-4.6) 10/21/23 17:17 Urine Color Yellow (Yellow) 10/21/23 16:58 Urine Appearance Clear (CLEAR) 10/21/23 16:58 Urine pH 6.5 (5-7) 10/21/23 16:58 Ur Specific [place] 1.010 (1.005-1.030) 10/21/23 16:58 Urine Protein Neg (Negative) 10/21/23 16:58 Urine Glucose (UA) Norm (Normal) 10/21/23 16:58 Urine Ketones Negative (Negative) 10/21/23 16:58 Urine Blood Neg (Negative) 10/21/23 16:58 Urine Nitrate Negative (Negative) 10/21/23 16:58 Urine Bilirubin Neg (Negative) 10/21/23 16:58 Urine Urobilinogen 1 mg/dL (Negative) H 10/21/23 16:58 Ur Leukocyte Esterase Negative (Negative) 10/21/23 16:58 XR interpretation done by ED provider, pending radiology final review Discharge Plan Discharge Patient Disposition: Admitted As Inpatient Clinical Impression: Syncope, Symptomatic bradycardia Condition: Fair Prescriptions: No Action (DME) Cam Boot to the Left See Rx Instructions .Route .MEDSUPPLY Qty: 1 0RF Rx Instructions: As directed losartan 50 mg tablet 25 mg PO DAILY Qty: 30 1RF Hold Instructions: Home Medication placed on hold at Doctor's office buspirone 30 mg tablet 30 mg PO TID Qty: 90 3RF Nexium 20 mg Capsule,Delayed Release(Dr/Ec) 40 mg PO QAM aspirin 81 mg capsule 81 mg PO DAILY Qty: 90 0RF atorvastatin 40 mg Tablet 40 mg PO BEDTIME Qty: 90 0RF clopidogrel 75 mg Tablet 75 mg PO DAILY Qty: 90 0RF nitroglycerin 0.4 mg Tablet, Sublingual 0.4 mg sublingual Q5M PRN (Reason: Chest Pain) Qty: 25 0RF metoprolol tartrate 25 mg Tablet 25 mg PO BID@0900,2100 Qty: 180 0RF nicotine 21 mg/24 hr patch 24 hour 1 patch transdermal DAILY Qty: 28 3RF nicotine (polacrilex) 4 mg lozenge 4 mg buccal Q2H PRN (Reason: nicotine cravings) Qty: 81 3RF Rx Instructions: Do not exceed 20 in a day. metoprolol tartrate 50 mg tablet 50 mg PO BID Qty: 60 0RF Referrals: Jayden Arreola MD [Primary Care Provider] - Coding Level of Care Code ED Contract Negotiation Manager for Chg Fwd Documented by User: Russell Doyle DO 10/21/23 20:15 HPI - Arrhythmia/Palpitations 2 General: Chief Complaint: Arrhythmia/Palpitations Stated Complaint: Blood Pressure drop Time Seen by Provider: 10/21/23 16:45 PFSH ED 2 PFSH: Medical History Iliac artery occlusion, right external iliac History of biliary stent insertion Pancreatitis Surgical History Hx of cholecystectomy Social History Smoking and tobacco/nicotine status: current every day tobacco/nicotine user Alcohol intake: never Substance/Drug Use: never Marital status: Single Course 2 Vital Signs: Vital signs: Vital Signs Temperature 98.4 F 10/21/23 15:18 Pulse Rate 89 10/21/23 18:48 Respiratory Rate 14 10/21/23 15:18 Blood Pressure 115/76 10/21/23 18:48 Pulse Oximetry 100 10/21/23 18:48 Oxygen Delivery Me thod Room Air 10/21/23 18:48 MDM - Arrhythmia/Palpitations Medical Decision Making Care signed out to Dr. Doyle at change of shift. See final notes for diagnosis and disposition. 48-year-old patient is syncopized at home. Evidently had a low heart rate there. He was checked out at shift change. He was essentially asymptomatic here. He was normotensive. However, he had an episode where his heart rate dropped to about 40-45. He lost P waves on the monitor. EKG shows likely complete heart block versus slow atrial fibrillation. His blood pressure dropped to 65 systolic. This resolved either on its own, or with the 0.5 mg of atropine he was given. He is asymptomatic again. Heart rate is in the 80s, sinus. Blood pressure is 123 systolic. He sats are 100% on room air. Given his episode, he will go to the ICU or CSU. His chest x-ray is negative. Cardiology has been consulted and will see the patient. Lab Data 10/21/23 17:17 10/21/23 17:17 Radiology Impressions Chest X-Ray 10/21/23 16:46 IMPRESSION: No acute findings. Laboratory Results WBC 11.32 10^3/uL (3.29-11.43) 10/21/23 17:17 RBC 4.83 10^6/uL (3.85-5.65) 10/21/23 17:17 Hgb 15.10 g/dL (11.27-16.99) 10/21/23 17:17 Hct 44.5 % (37-53) 10/21/23 17:17 MCV 92.1 fl (82-101) 10/21/23 17:17 MCH 31.3 pg (27-33) 10/21/23 17:17 MCHC 33.9 g/dL (30-55) 10/21/23 17:17 RDW 13.5 % (12.1-15.1) 10/21/23 17:17 Plt Count 216 10^3/cmm (157-399) 10/21/23 17:17 MPV 9.0 fL (7.4-10.4) 10/21/23 17:17 Neut % (Auto) 75.1 % 10/21/23 17:17 Lymph % (Auto) 17.2 % 10/21/23 17:17 [place] % (Auto) 6.0 % 10/21/23 17:17 Eos % (Auto) 1.0 % 10/21/23 17:17 Baso % (Auto) 0.4 % 10/21/23 17:17 Neut # (Auto) 8.50 10^3/uL (1.8-7.7) H 10/21/23 17:17 Lymph # (Auto) 2.0 10^3/uL (0.8-4.8) 10/21/23 17:17 [place] # (Auto) 0.7 10^3/uL (0.2-0.9) 10/21/23 17:17 Eos # (Auto) 0.1 10^3/uL (0.0-0.8) 10/21/23 17:17 Baso # (Auto) 0.1 10^3/uL (0.0-0.1) 10/21/23 17:17 Nucleated RBC % (auto) 0 % 10/21/23 17:17 Nucleated RBCs # 0.0 /100WBC 10/21/23 17:17 Sodium 136 mmol/L (136-145) 10/21/23 17:17 Potassium 4.3 mmol/L (3.5-5.1) 10/21/23 17:17 Chloride 98 mmol/L (98-107) 10/21/23 17:17 Carbon Dioxide 28 mmol/L (22-29) 10/21/23 17:17 Anion Gap 14.3 (5-19) 10/21/23 17:17 BUN 12 mg/dL (6-20) 10/21/23 17:17 Creatinine 1.0 mg/dL (0.7-1.2) 10/21/23 17:17 GFR Calculation 79.8 mL/min (90-130) L 10/21/23 17:17 Glucose 106 mg/dL (65-115) 10/21/23 17:17 Calculated Osmolality 282 mOsm/kg (285-295) L 10/21/23 17:17 Calcium 8.9 mg/dL (8.5-10.5) 10/21/23 17:17 Total Bilirubin 0.8 mg/dL (0.15-1.2) 10/21/23 17:17 AST 25 U/L (0-40) 10/21/23 17:17 ALT 28 U/L (0-41) 10/21/23 17:17 Alkaline Phosphatase 122 U/L (40-130) 10/21/23 17:17 Troponin T Baseline 7 ng/L (0-15) 10/21/23 17:17 Troponin T 120 Minute 6.86 ng/L (0-15) 10/21/23 19:24 Delta Troponin T -0.14 ABS# (0-10) L 10/21/23 19:24 Total Protein 7.3 g/dL (6.6-8.7) 10/21/23 17:17 Albumin 4.2 g/dL (3.5-5.2) 10/21/23 17:17 Globulin 3.1 g/dL (1.3-4.6) 10/21/23 17:17 Urine Color Yellow (Yellow) 10/21/23 16:58 Urine Appearance Clear (CLEAR) 10/21/23 16:58 Urine pH 6.5 (5-7) 10/21/23 16:58 Ur Specific [place] 1.010 (1.005-1.030) 10/21/23 16:58 Urine Protein Neg (Negative) 10/21/23 16:58 Urine Glucose (UA) Norm (Normal) 10/21/23 16:58 Urine Ketones Negative (Negative) 10/21/23 16:58 Urine Blood Neg (Negative) 10/21/23 16:58 Urine Nitrate Negative (Negative) 10/21/23 16:58 Urine Bilirubin Neg (Negative) 10/21/23 16:58 Urine Urobilinogen 1 mg/dL (Negative) H 10/21/23 16:58 Ur Leukocyte Esterase Negative (Negative) 10/21/23 16:58 Discharge Plan Discharge Patient Disposition: Admitted As Inpatient Clinical Impression: Syncope, Symptomatic bradycardia Condition: Fair Prescriptions: No Action (DME) Cam Boot to the Left See Rx Instructions .Route .MEDSUPPLY Qty: 1 0RF Rx Instructions: As directed losartan 50 mg tablet 25 mg PO DAILY Qty: 30 1RF Hold Instructions: Home Medication placed on hold at Doctor's office buspirone 30 mg tablet 30 mg PO TID Qty: 90 3RF Nexium 20 mg Capsule,Delayed Release(Dr/Ec) 40 mg PO QAM aspirin 81 mg capsule 81 mg PO DAILY Qty: 90 0RF atorvastatin 40 mg Tablet 40 mg PO BEDTIME Qty: 90 0RF clopidogrel 75 mg Tablet 75 mg PO DAILY Qty: 90 0RF nitroglycerin 0.4 mg Tablet, Sublingual 0.4 mg sublingual Q5M PRN (Reason: Chest Pain) Qty: 25 0RF metoprolol tartrate 25 mg Tablet 25 mg PO BID@0900,2100 Qty: 180 0RF nicotine 21 mg/24 hr patch 24 hour 1 patch transdermal DAILY Qty: 28 3RF nicotine (polacrilex) 4 mg lozenge 4 mg buccal Q2H PRN (Reason: nicotine cravings) Qty: 81 3RF Rx Instructions: Do not exceed 20 in a day. metoprolol tartrate 50 mg tablet 50 mg PO BID Qty: 60 0RF Referrals: Jayden Arreola MD [Primary Care Provider] - Coding Level of Care Code ED Contract Negotiation Manager for Jayla Howard
[2023-10-21 17:09] LABS: Add Urine Microscopic? NO; Charge for UA Resulting for Rev
[2023-10-21 17:14] LABS: Bilirubin Urine Neg (Negative); Blood Urine Neg (Negative); Glucose Urine UA Norm (Normal); Ketones Urine Negative (Negative); Leukocyte Esterase Urine Negative (Negative); Nitrate Urine Negative (Negative); Protein Urine Neg (Negative); Urine Appearance Clear (CLEAR); Urine Color Yellow (Yellow); Urobilinogen Urine 1 mg/dL (Negative); pH Urine 6.5 (5-7)
[2023-10-21 17:23] LABS: Basophils # 0.1 10^3/uL (0.0-0.1); Basophils % 0.4 %; Eosinophils # 0.1 10^3/uL (0.0-0.8); Hematocrit 44.5 % (37-53); Lymphocytes % 17.2 %; Mean Corpuscular HGB Conc 33.9 g/dL (30-55); Mean Corpuscular Hemoglobin 31.3 pg (27-33); Mean Corpuscular Volume 92.1 fl (82-101); Monocytes # 0.7 10^3/uL (0.2-0.9); Neutrophils % 75.1 %; Nucleated Red Blood Cells % 0 %; Platelet Count 216 10^3/cmm (157-399); Red Blood Count 4.83 10^6/uL (3.85-5.65); Red Cell Distribution Width 13.5 % (12.1-15.1); White Blood Count 11.32 10^3/uL (3.29-11.43)
[2023-10-21 17:41] LABS: Alanine Aminotransferase 28 U/L (0-41); Albumin Level 4.2 g/dL (3.5-5.2); Alkaline Phosphatase 122 U/L (40-130); Anion Gap 14.3 (5-19); Aspartate Amino Transferase 25 U/L (0-40); Blood Urea Nitrogen 12 mg/dL (6-20); Calcium 8.9 mg/dL (8.5-10.5); Carbon Dioxide 28 mmol/L (22-29); Chloride 98 mmol/L (98-107); Creatinine Clr Calc Pharmacy 97.6974; Globulin 3.1 g/dL (1.3-4.6); Glomerular Filtration Rate 79.8 mL/min (90-130); Glucose 106 mg/dL (65-115); Osmolality Calculated 282 mOsm/kg (285-295); Potassium 4.3 mmol/L (3.5-5.1); Sodium 136 mmol/L (136-145); Total Bilirubin 0.8 mg/dL (0.15-1.2); Total Protein 7.3 g/dL (6.6-8.7); Troponin(5th) Baseline 7 ng/L (0-15)
[2023-10-21] MEDS: sodium chloride 0.9% 1,000 ML 999 ML IV (18:35)
[2023-10-21] MEDS: atropine 0.1 mg/mL Syr 10 mL 0.5 MG IVP (18:35)
--- NOTE | 2023-10-21 18:46 | ECG_ITS ---
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 Measurements Intervals [place] Rate: 42 P: 0 NE: 0 QRS: 43 QRSD: 94 T: 82 QT: 504 QTc: 425 Interpretive Statements Junctional rhythm with a ventricular rate of 42 bpm NONSPECIFIC T-WAVE ABNORMALITY ABNORMAL RHYTHM ECG Compared to ECG 10/21/2023 15:21:24 Sinus rhythm no longer present Electronically Signed On 10-22-2023 12:26:21 CDT by Ginna Caraballo M.D. [id number]
--- NOTE | 2023-10-21 19:31 | PC.NURSE ---
ICE CHIPS PROVIDED PER PT REQUEST AND PROVIDER APPROVAL. PT DENIES FURTHER NEEDS.
[2023-10-21 19:46] LABS: Troponin 5 2HR 6.86 ng/L (0-15)
[2023-10-21 19:47] LABS: Troponin 5 2HR Delta -0.14 ABS# (0-10)
--- NOTE | 2023-10-21 22:31 | P.HP_ITS ---
Providers/Chief Complaint 2 Admitting Physician: Rogelio Siegel DO Primary Care Provider: Jayden Arreola Chief Complaint: Blood Pressure drop History of Present Illness Dennis Ruelas is a 48 year old male with a past medical history of [place] earlier this year, HLD, HTN who presented to ER earlier today after vasovagal episode. Patient reported that earlier today he had an episode of high blood pressure. Reported that his systolic pressure was in the 180 range. he normally takes metoprolol and losartan for his blood pressure. In addition he also has clonidine available in case his blood pressure is really high. States that he took one and rechecked his pressure around an hour later, which he says initially improved to around the 120 range. States that he began to feel a little lightheaded and rechecked his pressure which was in the 80/40 range, and he reported his HR dipped into the 40's. He says that he called EMS at that time. He states that he did have some slight chest pressure when his blood pressure was low, but this did resolve shortly after EMS arrived. In the ER, he initially reported feeling symptom-free and his blood pressure did improve. His labs were unremarkable. He had a negative delta Troponin and his EKG initially showed sinus rhythm. He was preparing for discharge, when he again had an episode of hypotension and his heart rate again decreased into the 40s. He was given atropine which resulted in his pressure and HR returning to normal range and hospitalist was called for admission. ER physician reported that he would call cardiology to see the patient. Review of Systems 2 General: Reports: 10 or more systems reviewed and unremarkable except in HPI and below Const: Denies: fever(s), chills or body aches Eyes: Denies: change in vision Card: Reports: chest pain and lightheadedness; Denies: palpitations Resp: Denies: dyspnea GI: Denies: abdominal pain, nausea or vomiting : Denies: flank pain Musc: Denies: neck pain or back pain Skin/Breast: Denies: rash Neuro: Denies: headache(s) or numbness in extremities Medications/Allergies Home Medications Medication Instructions Recorded Confirmed Last Taken Type esomeprazole magnesium 20 mg 40 mg PO QAM 04/24/23 10/21/23 04/24/23 History capsule,delayed release (Nexium) aspirin 81 mg capsule 81 mg PO DAILY #90 caps 04/26/23 10/21/23 Unknown Rx atorvastatin 40 mg tablet 40 mg PO BEDTIME #90 tabs 04/26/23 10/21/23 Unknown Rx clopidogrel 75 mg tablet 75 mg PO DAILY #90 tabs 04/26/23 10/21/23 Unknown Rx nitroglycerin 0.4 mg sublingual 0.4 mg sublingual Q5M PRN Chest 04/26/23 10/21/23 Unknown Rx tablet Pain #25 tabs metoprolol tartrate 50 mg tablet 50 mg PO BID Hypertension #60 tabs 06/14/23 10/21/23 Unknown Rx losartan 50 mg tablet 100 mg PO DAILY 10/21/23 10/21/23 Unknown History Allergies Allergy/AdvReac Type Severity Reaction Status Date / Time No Known Allergies Allergy Verified 10/21/23 15:23 PFSH Acute 2 PFSH: Medical History Iliac artery occlusion, right external iliac History of biliary stent insertion Pancreatitis Surgical History Hx of cholecystectomy Social History Smoking and tobacco/nicotine status: current every day tobacco/nicotine user Alcohol intake: never Substance/Drug Use: never Marital status: Single Vitals/I&O/Wt Last Vital Signs Temp 97.9 F 10/21/23 20:51 Pulse 82 10/21/23 20:51 Resp 15 10/21/23 20:51 BP 118/81 10/21/23 20:51 Pulse Ox 100 10/21/23 20:51 O2 Del Method Room Air 10/21/23 20:51 10/21/23 10/21/23 10/21/23 06:59 14:59 22:59 Intake Total 1000 / 1000 Output Total 500 / 500 Balance 500 / 500 Weight last 48 hrs Weight 181 lb 14.4 oz Weight 180 lb Physical Exam 2 Narrative: General: Cooperative patient in no apparent distress. Well developed. HEENT: Normocephalic, Atraumatic. External ears normal. Nasal passages patent without drainage. MMM. Heart: RRR. Resp: LCTA. No respiratory distress, no use of accessory muscles. Abd: Soft, non-tender. Non-distended. Extremities: No edema. Skin: No rash or lesions on exposed areas. Data 10/21/23 17:17 10/21/23 17:17 A&P Assessment and plan (1) Symptomatic bradycardia: (2) Vasovagal episode: (3) Labile blood pressure: Plan 48-year-old male admitted for symptomatic bradycardia, hypotension, concern for heart block. Will admit to cardiac stepdown unit. Cardiology consulted from the ER. Troponins negative. EKG initially showed sinus rhythm, but repeat was concerning for A-V dissociation vs. A-fib. Continue Telemetry. BP currently stable. HR is 70-80 range. Recheck am labs. Check TSH. Hold BB at this time. Can address BP if becomes elevated. Atropine available for symptomatic bradycardia or HR <40. SCD's for VTE prophylaxis. Continue other home medications. Code Status: Full IVF: None DVT PPx: SCDs GI PPx: None ABx: None Diet: Cardiac Discharge plan: Home when appropriate Attestations 2 Medical Necessity Statement*: Patient requires hospitalization for workup of symptomatic bradycardia, labile blood pressures, cardiology consult, and medication adjustment. Coding Level of Care Code Acute Code for Chg Fwd Moderate MDM includes number and complexity of problems actively addressed during encounter, amount and/or complexity of data reviewed/ordered and described risk of complication, morbidity or mortality of management as documented Diagnoses Symptomatic bradycardia R00.1 Vasovagal episode R55 Labile blood pressure R09.89
--- NOTE | 2023-10-21 22:46 | ECG_ITS ---
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 Measurements Intervals [place] Rate: 75 P: 51 [place]: 148 QRS: 25 QRSD: 88 T: 89 QT: 420 QTc: 470 Interpretive Statements SINUS RHYTHM NONSPECIFIC T-WAVE ABNORMALITY Compared to ECG 10/21/2023 18:27:28 Sinus bradycardia and junctional rhythm no longer present Electronically Signed On 10-22-2023 12:07:20 CDT by Ginna Caraballo M.D. [id number]
[2023-10-22] VITALS (10 sets, daily range): BP systolic 116–140; BP diastolic 70–97; PULSE 63–94; RESP 12–17; TEMP 36.7–36.9; O2SAT 97–99
[2023-10-22 00:08] LABS: Troponin 5 6HR 6.41 ng/L (0-15); Troponin 5 6HR Delta -0.59 ng/L (0-12)
[2023-10-22 04:55] LABS: Basophils # 0.1 10^3/uL (0.0-0.1); Basophils % 0.6 %; Eosinophils # 0.1 10^3/uL (0.0-0.8); Lymphocytes # 2.5 10^3/uL (0.8-4.8); Lymphocytes % 30.3 %; Mean Corpuscular HGB Conc 32.9 g/dL (30-55); Mean Corpuscular Hemoglobin 30.9 pg (27-33); Mean Corpuscular Volume 93.8 fl (82-101); Mean Platelet Volume 9.2 fL (7.4-10.4); Monocytes # 0.7 10^3/uL (0.2-0.9); Monocytes % 8.3 %; Neutrophils % 59.6 %; Nucleated Red Blood Cells % 0 %; Platelet Count 188 10^3/cmm (157-399); Red Blood Count 4.37 10^6/uL (3.85-5.65); Red Cell Distribution Width 13.6 % (12.1-15.1); White Blood Count 8.22 10^3/uL (3.29-11.43)
[2023-10-22 05:33] LABS: Alanine Aminotransferase 23 U/L (0-41); Albumin Level 3.5 g/dL (3.5-5.2); Alkaline Phosphatase 104 U/L (40-130); Anion Gap 13.7 (5-19); Aspartate Amino Transferase 22 U/L (0-40); Blood Urea Nitrogen 11 mg/dL (6-20); Calcium 8.5 mg/dL (8.5-10.5); Carbon Dioxide 25 mmol/L (22-29); Chloride 105 mmol/L (98-107); Cholesterol 111 mg/dL (0-200); Creatinine Clr Calc Pharmacy 109.0416; Globulin 2.9 g/dL (1.3-4.6); Glomerular Filtration Rate 90.1 mL/min (90-130); Glucose 96 mg/dL (65-115); HDL Cholesterol 30 mg/dL (60-100); LDL Cholesterol Calculated 64 mg/dL (50-129); LDL HDL Ratio 2.13 RATIO (0.00-3.22); Osmolality Calculated 289 mOsm/kg (285-295); Potassium 3.7 mmol/L (3.5-5.1); Sodium 140 mmol/L (136-145); Thyroid Stimulating Hormone 2.41 uIU/mL (0.27-4.20); Total Bilirubin 1.2 mg/dL (0.15-1.2); Total Protein 6.4 g/dL (6.6-8.7); Triglycerides 87 mg/dL (0-150)
[2023-10-22] MEDS: pantoprazole DR 40 mg Tablet PO (06:31)
[2023-10-22] MEDS: clopidogrel 75 mg Tablet PO (09:37)
[2023-10-22] MEDS: losartan 50 mg Tablet 100 MG PO (09:37)
[2023-10-22] MEDS: aspirin 81 mg EC Tablet PO (09:38)
--- NOTE | 2023-10-22 11:24 | P.CONIM_ITS ---
Providers/Reason For Consult 2 Consulting Physician/Specialty*: Cardiology Reason for Consult*: Bradycardia and hypotension Requesting Physician: Dr. Potter Attending Physician: Jovany Pisano MD Primary Care Provider: Jayden Arreola History of Present Illness History of Present Illness Dennis Ruelas is a 48 year old male who presented to ER with symptoms of dizziness, weakness generalized and vague chest discomfort. Patient has a known history of hypertension and unexplainable tachycardia for which she has been prescribed losartan 100 mg once a day and metoprolol 50 mg twice a day. Patient had a cardiac workup earlier this year in March 2003 with normal a heart cath and normal LVEF on echocardiogram. He does have moderate left ventricle hypertrophy though. Yesterday morning patient noticed his blood pressure was elevated which happens couple of times during the month. As per his PCP he took a single dose of clonidine, prescribed for elevated blood pressure intermittently. Afterwards he he started feeling weak tired and dizzy as well as symptoms of presyncope. On arrival to the ER his blood pressure systolic was less than 90s and his heart rate was in the 40s. EKG and monitor technician showed sinus bradycardia with intermittent junctional rhythm. No acute ST changes suggestive of any acute cardiac ischemia. He was managed with a single shot of atropine, IV fluids and he felt better. Since admission he has been ruled out for an acute coronary syndrome with serial EKGs and negative cardiac troponin enzymes. His blood pressure is better and in fact he took losartan 2 mg this morning and his current blood pressure 112/66. However his heart rate has been in the range of 90-1 10 sinus rhythm to sinus tachycardia. Currently only complaint is feeling generalized weakness. No further chest pain. Review of Systems 2 Narrative: Detailed 10 point systemic review revealed significant history of anxiety. Patient says he is so anxious that he is even scared to go to public places such as a grocery store because he feels his heart will start racing. Rest of systemic review unremarkable except for as mentioned above in the history of present illness. Medications/Allergies Home Medications Medication Instructions Recorded Confirmed Last Taken Type esomeprazole magnesium 20 mg 40 mg PO QAM 04/24/23 10/21/23 04/24/23 History capsule,delayed release (Nexium) aspirin 81 mg capsule 81 mg PO DAILY #90 caps 04/26/23 10/21/23 Unknown Rx atorvastatin 40 mg tablet 40 mg PO BEDTIME #90 tabs 04/26/23 10/21/23 Unknown Rx clopidogrel 75 mg tablet 75 mg PO DAILY #90 tabs 04/26/23 10/21/23 Unknown Rx nitroglycerin 0.4 mg sublingual 0.4 mg sublingual Q5M PRN Chest 04/26/23 10/21/23 Unknown Rx tablet Pain #25 tabs metoprolol tartrate 50 mg tablet 50 mg PO BID Hypertension #60 tabs 06/14/23 10/21/23 Unknown Rx losartan 50 mg tablet 100 mg PO DAILY 10/21/23 10/21/23 Unknown History Allergies Allergy/AdvReac Type Severity Reaction Status Date / Time No Known Allergies Allergy Verified 10/21/23 15:23 Current Medications Generic Name Dose Route Start Last Admin Trade Name Eliana PRN Reason Stop Dose Admin Aspirin 81 mg 10/22/23 09:00 10/22/23 09:38 Aspirin 81 Mg Ec Tablet PO 81 mg DAILY WHIT Administration Clopidogrel Bisulfate 75 mg 10/22/23 09:00 10/22/23 09:37 Clopidogrel 75 Mg Tablet PO 75 mg DAILY WHIT Administration Losartan Potassium 100 mg 10/22/23 09:00 10/22/23 09:37 Losartan 50 Mg Tablet PO 100 mg DAILY WHIT Administration Pantoprazole Sodium 40 mg 10/22/23 06:00 10/22/23 06:[address] 40 Mg Tablet PO 40 mg QAM WHIT Administration PFSH Acute 2 PFSH: Medical History Iliac artery occlusion, right external iliac History of biliary stent insertion Pancreatitis Surgical History Hx of cholecystectomy Social History Smoking and tobacco/nicotine status: current every day tobacco/nicotine user Alcohol intake: never Substance/Drug Use: never Marital status: Single Vitals/I&O/Wt Last Vital Signs Temp 98.0 F 10/22/23 07:57 Pulse 89 10/22/23 07:57 Resp 15 10/22/23 07:57 BP 116/73 10/22/23 09:37 Pulse Ox 97 10/22/23 07:57 O2 Del Method Room Air 10/22/23 07:57 10/21/23 10/22/23 10/22/23 22:59 06:59 14:59 Intake Total 1000 / 1000 120 / 120 Output Total 500 / 500 500 / 1000 Balance 500 / 500 -500 / 0 120 / 120 Weight last 48 hrs Weight 178 lb 12.8 oz Weight 181 lb 14.4 oz Weight 180 lb Physical Exam 2 Narrative: Patient laying comfortably in his bed. He is somewhat anxious. Vitals reveal blood pressure normal. Heart rate in the range of 90-100 tens. Const: OTHER: Normal. HENMT: OTHER: Normal. Neck/C-Spine: COMMON NORMALS: full ROM and no JVD Resp: OTHER: Good air entry bilaterally. No added sounds. Cardio: COMMON NORMALS: no JVD, regular rate, regular rhythm, S1 normal heart sound present and S2 normal heart sound present RATE: regular rate RHYTHM: regular rhythm HEART SOUNDS: S1 normal heart sound present and S2 normal heart sound present GI: OTHER: Soft nontender abdomen. Bowel sounds audible. Extremity: OTHER: Unremarkable. No pedal edema. Neuro: OTHER: Grossly intact. Psych: OTHER: Patient is very anxious. Skin: OTHER: Warm and dry. Data 10/22/23 04:43 10/22/23 04:43 A&P Assessment and plan (1) Labile blood pressure: (2) Symptomatic bradycardia: Plan 48-year-old male with fluctuating blood pressure, an episode of presyncope related to low blood pressure and bradycardia after taking additional blood pressure medication The bradycardia yesterday was little more likely due to metoprolol Ruled out so far for acute coronary syndrome Clinically no heart failure No further arrhythmia noted. Recommendation: 1. Reduce the dose of metoprolol to 25 mg twice a day 2. Continue losartan 100 mg once a day. 3. Observe on the telemetry today, ambulate him. Increase water intake. 4. Holter monitor as an outpatient. Coding Level of Care Code 59624 Diagnoses Labile blood pressure R09.89 Symptomatic bradycardia R00.1 Time Spent (min) 30
[2023-10-22] MEDS: metoprolol tartrate 25 mg Tablet PO ×2 (11:51→20:16)
[2023-10-22] MEDS: sertraline 50 mg Tablet PO (13:30)
[2023-10-22 13:37] LABS: Iron 114 ug/dL (59-158); Percent Saturation 52.7 % (20-50); Total Iron Binding Capacity 216 mcg/dl; Unsaturated Iron Binding 102 ug/dL (112-347)
--- NOTE | 2023-10-22 13:42 | P.PN_ITS ---
Subjective 2 Subjective: Admitted overnight. Seen multiple family members at bedside. Patient states he is feeling a lot better. States he usually has been dealing with a lot of anxiety even on getting out of the house for many months. He was recently increased on dose of metoprolol because of the same reason. Have tried multiple antianxiety medications as an outpatient. On examination heart rate running more than 100. Vitals/I&O/Wt Last Vital Signs Temp 98.0 F 10/22/23 11:46 Pulse 94 10/22/23 11:46 Resp 16 10/22/23 11:46 BP 140/78 10/22/23 11:46 Pulse Ox 97 10/22/23 11:46 O2 Del Method Room Air 10/22/23 11:46 10/21/23 10/22/23 10/22/23 22:59 06:59 14:59 Intake Total 1000 / 1000 342 / 342 Output Total 500 / 500 500 / 1000 Balance 500 / 500 -500 / 0 342 / 342 Weight last 48 hrs Weight 81.102 kg Weight 82.508 kg Weight 81.647 kg Physical Exam 2 Narrative: General: Cooperative patient in no apparent distress. Well developed. Anxious. HEENT: Normocephalic, Atraumatic. External ears normal. Nasal passages patent without drainage. MMM. Heart: RRR. Resp: LCTA. No respiratory distress, no use of accessory muscles. Abd: Soft, non-tender. Non-distended. Extremities: No edema. Skin: No rash or lesions on exposed areas. Data 10/22/23 04:43 10/22/23 04:43 A&P Assessment and plan (1) Symptomatic bradycardia: Most likely in setting of vasovagal along with high doses of metoprolol as an outpatient. Currently tachycardic. No heart block. Appreciate cardiology recommendations. Appreciate TSH level normal. Start on metoprolol 25 mg twice daily. Monitor telemetry. Patient did have cardiac angiogram back in March 2023 which was negative for acute ischemia and showed normal coronaries. (2) Vasovagal episode: (3) Labile blood pressure: History of hypertension. Goal blood pressure less than 140/90 mmHg. Metoprolol as above. Takes metoprolol and losartan at home with clonidine as needed. Blood pressures labile most likely in setting of extreme anxiety as an outpatient. Continue with home dose of losartan for now. (4) Anxiety: History of extreme anxiety as an outpatient. Have tried multiple medications as an outpatient including BuSpar without much help. Patient states usually get anxious even on getting out of the house. Every time he is anxious he feels tachycardic, elevated blood pressures for which he has been using as needed clonidine as well. Start on Xanax 0.5 3 times daily as needed. Start on Zoloft 50 mg oral daily. Patient would benefit with follow-up with behavioral health as an outpatient. Patient is agreeable to the same. Plan Code Status: Full IVF: None DVT PPx: SCDs GI PPx: None ABx: None Diet: Cardiac Discharge plan: Home when appropriate Attestations 2 Medical Necessity Statement*: Requires further hospitalization for management of symptomatic bradycardia while rate limiting medications are adjusted, extreme anxiety Diagnoses Symptomatic bradycardia R00.1 Vasovagal episode R55 Labile blood pressure R09.89 Anxiety F41.9
[2023-10-22 13:49] LABS: Estmated Average Glucose 105; Hemoglobin A1C 5.3 % (4.0-6.0)
[2023-10-22 13:54] LABS: Vitamin B12 313 pg/mL (232-1245)
[2023-10-22 17:56] LABS: Amphetamines Screen Urine Negative (Negative); Barbiturates Screen Urine Negative (Negative); Benzodiazepines Screen Urine Negative (Negative); Cocaine Screen Urine Negative (Negative); Opiate Screen Urine Negative (Negative); PCP Screen Urine Negative (Negative); THC Screen Urine Negative (Negative)
[2023-10-22] MEDS: atorvastatin 40 mg Tablet PO (20:16)
[2023-10-23] VITALS: BP 132/81; PULSE 93; RESP 14; TEMP 36.9; O2SAT 95
[2023-10-23 04:00] VITALS: BP 148/94; PULSE 25; RESP 14; TEMP 36.7; O2SAT 97
[2023-10-23 04:32] LABS: Basophils # 0.1 10^3/uL (0.0-0.1); Basophils % 0.6 %; Eosinophils # 0.2 10^3/uL (0.0-0.8); Eosinophils % 2.3 %; Hematocrit 43.4 % (37-53); Lymphocytes # 2.9 10^3/uL (0.8-4.8); Lymphocytes % 35.3 %; Mean Corpuscular HGB Conc 32.9 g/dL (30-55); Mean Corpuscular Volume 94.1 fl (82-101); Mean Platelet Volume 9.2 fL (7.4-10.4); Monocytes # 0.6 10^3/uL (0.2-0.9); Monocytes % 7.8 %; Neutrophils % 53.8 %; Nucleated Red Blood Cells % 0 %; Platelet Count 213 10^3/cmm (157-399); Red Blood Count 4.61 10^6/uL (3.85-5.65); Red Cell Distribution Width 13.7 % (12.1-15.1); White Blood Count 8.19 10^3/uL (3.29-11.43)
[2023-10-23 04:46] LABS: Alanine Aminotransferase 24 U/L (0-41); Albumin Level 3.5 g/dL (3.5-5.2); Alkaline Phosphatase 106 U/L (40-130); Anion Gap 11.7 (5-19); Aspartate Amino Transferase 23 U/L (0-40); Blood Urea Nitrogen 11 mg/dL (6-20); Calcium 8.4 mg/dL (8.5-10.5); Carbon Dioxide 27 mmol/L (22-29); Chloride 105 mmol/L (98-107); Creatinine Clr Calc Pharmacy 97.4188; Globulin 3.1 g/dL (1.3-4.6); Glomerular Filtration Rate 79.8 mL/min (90-130); Glucose 93 mg/dL (65-115); Osmolality Calculated 289 mOsm/kg (285-295); Potassium 3.7 mmol/L (3.5-5.1); Sodium 140 mmol/L (136-145); Total Protein 6.6 g/dL (6.6-8.7)
[2023-10-23 04:54] LABS: Folate Level 3.4 ng/mL (4.5-32.2)
[2023-10-23] MEDS: pantoprazole DR 40 mg Tablet PO (05:38)
[2023-10-23 06:00] VITALS: PULSE 59
[2023-10-23 07:21] VITALS: BP 154/96; PULSE 75; RESP 13; TEMP 36.7; O2SAT 97
--- NOTE | 2023-10-23 07:58 | PM.PN ---
Vitals/I&O/Wt Last Vital Signs Temp 98.1 F 10/23/23 07:21 Pulse 75 10/23/23 07:21 Resp 13 10/23/23 07:21 BP 154/96 10/23/23 07:21 Pulse Ox 97 10/23/23 07:21 O2 Del Method Room Air 10/23/23 07:21 10/22/23 10/23/23 10/23/23 22:59 06:59 14:59 Intake Total 744 / 1086 100 / 1186 Output Total 200 / 200 300 / 500 Balance 544 / 886 -200 / 686 Weight last 48 hrs Weight 178 lb 12.8 oz Weight 178 lb 12.8 oz Weight 181 lb 14.4 oz Weight 180 lb Data 10/23/23 03:58 10/23/23 03:58 Coding Level of Care Code Acute Code for Chg Fwd
[2023-10-23] MEDS: metoprolol tartrate 25 mg Tablet PO (08:40)
[2023-10-23] MEDS: aspirin 81 mg EC Tablet PO (08:40)
[2023-10-23] MEDS: clopidogrel 75 mg Tablet PO (08:40)
[2023-10-23] MEDS: losartan 50 mg Tablet 100 MG PO (08:40)
[2023-10-23] MEDS: sertraline 50 mg Tablet PO (08:40)
--- NOTE | 2023-10-23 09:46 | PC.CHAP ---
Pastoral Care Encounter/Spiritual Assessment Type of Contact [] Declined electrical design technologist visit [] Patient/Family/Request visit [] Outpatient visit [] Follow-up visit [] Physician referral [] Code/Alert [x] Routine visit [] Staff referral [] Actively dying [] Patient sleeping [] Family support [] [] Out of room [] Palliative care [] [] Receiving care in room [] Pre-surgical visit [] Trauma [] Long length of stay [] ICU visit [] Other: Relational/Emotional Strength [] Patient feels connected with others/family/visitors/staff [] Distress [] Loneliness/isolation [] Abandonment Spirituality of Patient [x] Person of Crystal [] Attends Buddhist of their Crystal [x] Believes in Prayer [] Reads Bible or Confucianist materials [] There are Spiritual issues to be addressed Die Mechanic Interventions [x] Prayer [x] Active listening [] Non-anxious presence [] Spiritual/emotional support [] Crisis/trauma care [] Spiritual counseling [] Bereavement support [] Provided bereavement packet [x] Provided Bible/devotional materials [] Provided toy/stuffed animal, coloring book to patient or family member [] Provided Communion [] Anointing/Rose [] Salvation [x] Completed spiritual assessment [] Other: Impact on Illness or Injury [] Angry [] Fearful [] Anxious [] Often cries [] Exhaustion [] Unable to work [] Unable to attend hoahaoism [] Unable to walk/stand [] Unable to read [] Unable to drive [] Unable to eat/drink [] Unable to sleep [] Unable to be with family [] Patient intubated [] Other: Summary Time spent with patient 10 min
--- NOTE | 2023-10-23 11:59 | P.DS_ITS ---
Discharge Providers Date of Admission: 10/21/23 19:46 Date of Discharge: October 23, 2023 Attending Provider at Admission: Rogelio Siegel DO Attending Provider at Discharge: Pino Ward Primary Care Provider: Jayden Arreola Diagnoses at Discharge Discharge Diagnosis (1) Symptomatic bradycardia: Status: Acute (2) Vasovagal episode: Status: Acute (3) Labile blood pressure: Status: Acute (4) Anxiety: Status: Acute Reason for Visit Reason for Visit: Blood Pressure drop Hospital Course Hospital Course Pleasant 48-year-old gentleman was admitted to due to bradycardia after receiving atropine, has also had some associated anxiety with several medications tried as outpatient. With anxiety was noted to get tachycardic with elevated blood pressures. Took extra clonidine dose prior to admission due to anxiety, subsequently hypotensive. On presentation bradycardic, metoprolol was held, subsequently tachycardic. Was seen by cardiology, restarted on low-dose metoprolol 25 mg. Currently heart rate and blood pressure in good range. He is feeling better. Was reassessed by cardiology and found to be safe to return home at current time with telemetry monitor which is requested. He is started on sertraline due to anxiety and is asked to consider follow-up with behavioral health care and given referral. Please reassess his blood pressures, heart rates, in case of significant spikes consider further workup, possibly serum/urine catecholamines. Physical Exam Narrative: Accompanied by family. Const: COMMON NORMALS: patient oriented x3 and alert GENERAL APPEARANCE: cooperative ORIENTATION/CONSCIOUSNESS: Yes awake HENMT: COMMON NORMALS: oropharynx normal Neck/C-Spine: COMMON NORMALS: no JVD Resp: COMMON NORMALS: normal respiratory effort and clear to auscultation bilaterally AUSCULTATION: clear to auscultation bilaterally Cardio: COMMON NORMALS: no JVD, regular rhythm, S1 normal heart sound present, S2 normal heart sound present and No murmurs present (Cardio) RHYTHM: regular rhythm HEART SOUNDS: S1 normal heart sound present and S2 normal heart sound present GI: COMMON NORMALS: Normal to inspection, nondistended, normoactive bowel sounds present, Soft to palpation and non-tender PALPATION: Yes Soft to palpation Extremity: COMMON NORMALS: no joint enlargement and no pedal edema Neuro: COMMON NORMALS: patient oriented x3 and moves all extremities SENSORIUM/ORIENTATION: Yes alert Skin: COMMON NORMALS: no rashes or lesions noted GENERAL SKIN EXAM: no rashes or lesions noted Discharge Data Studies Completed and Pending Completed Studies During Hospitalization Category Date Time Status XR chest 1V portable [id number] Stat Exams 10/21/23 16:46 Completed Radiology Impressions Chest X-Ray 10/21/23 16:46 IMPRESSION: No acute findings. Laboratory Results WBC 8.19 10^3/uL (3.29-11.43) 10/23/23 03:58 RBC 4.61 10^6/uL (3.85-5.65) 10/23/23 03:58 Hgb 14.30 g/dL (11.27-16.99) 10/23/23 03:58 Hct 43.4 % (37-53) 10/23/23 03:58 MCV 94.1 fl (82-101) 10/23/23 03:58 MCH 31.0 pg (27-33) 10/23/23 03:58 MCHC 32.9 g/dL (30-55) 10/23/23 03:58 RDW 13.7 % (12.1-15.1) 10/23/23 03:58 Plt Count 213 10^3/cmm (157-399) 10/23/23 03:58 MPV 9.2 fL (7.4-10.4) 10/23/23 03:58 Neut % (Auto) 53.8 % 10/23/23 03:58 Lymph % (Auto) 35.3 % 10/23/23 03:58 [place] % (Auto) 7.8 % 10/23/23 03:58 Eos % (Auto) 2.3 % 10/23/23 03:58 Baso % (Auto) 0.6 % 10/23/23 03:58 Neut # (Auto) 4.40 10^3/uL (1.8-7.7) 10/23/23 03:58 Lymph # (Auto) 2.9 10^3/uL (0.8-4.8) 10/23/23 03:58 [place] # (Auto) 0.6 10^3/uL (0.2-0.9) 10/23/23 03:58 Eos # (Auto) 0.2 10^3/uL (0.0-0.8) 10/23/23 03:58 Baso # (Auto) 0.1 10^3/uL (0.0-0.1) 10/23/23 03:58 Nucleated RBC % (auto) 0 % 10/23/23 03:58 Nucleated RBCs # 0.0 /100WBC 10/23/23 03:58 Sodium 140 mmol/L (136-145) 10/23/23 03:58 Potassium 3.7 mmol/L (3.5-5.1) 10/23/23 03:58 Chloride 105 mmol/L (98-107) 10/23/23 03:58 Carbon Dioxide 27 mmol/L (22-29) 10/23/23 03:58 Anion Gap 11.7 (5-19) 10/23/23 03:58 BUN 11 mg/dL (6-20) 10/23/23 03:58 Creatinine 1.0 mg/dL (0.7-1.2) 10/23/23 03:58 GFR Calculation 79.8 mL/min (90-130) L 10/23/23 03:58 Glucose 93 mg/dL (65-115) 10/23/23 03:58 Estimat Average Glucose 105 10/22/23 04:43 Hemoglobin A1c 5.3 % (4.0-6.0) 10/22/23 04:43 Calculated Osmolality 289 mOsm/kg (285-295) 10/23/23 03:58 Calcium 8.4 mg/dL (8.5-10.5) L 10/23/23 03:58 Iron 114 ug/dL (59-158) 10/22/23 04:43 TIBC 216 mcg/dl 10/22/23 04:43 % Saturation 52.7 % (20-50) H 10/22/23 04:43 Unsat Iron Binding 102 ug/dL (112-347) L 10/22/23 04:43 Total Bilirubin 1.0 mg/dL (0.15-1.2) 10/23/23 03:58 AST 23 U/L (0-40) 10/23/23 03:58 ALT 24 U/L (0-41) 10/23/23 03:58 Alkaline Phosphatase 106 U/L (40-130) 10/23/23 03:58 Troponin T Baseline 7 ng/L (0-15) 10/21/23 17:17 Troponin T 120 Minute 6.86 ng/L (0-15) 10/21/23 19:24 Delta Troponin T -0.14 ABS# (0-10) L 10/21/23 19:24 Troponin T Hi Sens 6Hr 6.41 ng/L (0-15) 10/21/23 23:29 Troponin T Hi Sens 6Hr Delta -0.59 ng/L (0-12) L 10/21/23 23:29 Total Protein 6.6 g/dL (6.6-8.7) 10/23/23 03:58 Albumin 3.5 g/dL (3.5-5.2) 10/23/23 03:58 Globulin 3.1 g/dL (1.3-4.6) 10/23/23 03:58 Triglycerides 87 mg/dL (0-150) 10/22/23 04:43 Cholesterol 111 mg/dL (0-200) 10/22/23 04:43 LDL Cholesterol, Calc 64 mg/dL (50-129) 10/22/23 04:43 HDL Cholesterol 30 mg/dL (60-100) L 10/22/23 04:43 LDL/HDL Ratio 2.13 RATIO (0.00-3.22) 10/22/23 04:43 Cholesterol/HDL Ratio 3.70 mg/dL (1.0-5.00) 10/22/23 04:43 Vitamin B12 313 pg/mL (232-1245) 10/22/23 04:43 Folate 3.4 ng/mL (4.5-32.2) L 10/23/23 03:58 TSH 2.41 uIU/mL (0.27-4.20) 10/22/23 04:43 Urine Color Yellow (Yellow) 10/21/23 16:58 Urine Appearance Clear (CLEAR) 10/21/23 16:58 Urine pH 6.5 (5-7) 10/21/23 16:58 Ur Specific [place] 1.010 (1.005-1.030) 10/21/23 16:58 Urine Protein Neg (Negative) 10/21/23 16:58 Urine Glucose (UA) Norm (Normal) 10/21/23 16:58 Urine Ketones Negative (Negative) 10/21/23 16:58 Urine Blood Neg (Negative) 10/21/23 16:58 Urine Nitrate Negative (Negative) 10/21/23 16:58 Urine Bilirubin Neg (Negative) 10/21/23 16:58 Urine Urobilinogen 1 mg/dL (Negative) H 10/21/23 16:58 Ur Leukocyte Esterase Negative (Negative) 10/21/23 16:58 Urine Opiates Screen Negative ng/mL (Negative) 10/22/23 17:40 Ur Barbiturates Screen Negative ng/mL (Negative) 10/22/23 17:40 Ur Phencyclidine Scrn Negative ng/mL (Negative) 10/22/23 17:40 Ur Amphetamines Screen Negative ng/mL (Negative) 10/22/23 17:40 U Benzodiazepines Scrn Negative ng/mL (Negative) 10/22/23 17:40 Urine Cocaine Screen Negative ng/mL (Negative) 10/22/23 17:40 U Marijuana (THC) Screen Negative ng/mL (Negative) 10/22/23 17:40 Vitals Last Vital Signs Temp 98.1 F 10/23/23 07:21 Pulse 75 10/23/23 07:21 Resp 13 10/23/23 07:21 BP 154/96 10/23/23 07:21 Pulse Ox 97 10/23/23 07:21 O2 Del Method Room Air 10/23/23 07:21 Discharge Plan Discharge Patient Disposition: Home Condition: Stable Prescriptions: New sertraline 50 mg Tablet 50 mg PO DAILY Qty: 90 0RF metoprolol tartrate 25 mg Tablet 25 mg PO BID@0900,2100 Qty: 90 0RF Continued esomeprazole magnesium [Nexium] 20 mg Capsule,Delayed Release(Dr/Ec) 40 mg PO QAM aspirin 81 mg capsule 81 mg PO DAILY Qty: 90 0RF atorvastatin 40 mg Tablet 40 mg PO BEDTIME Qty: 90 0RF clopidogrel 75 mg Tablet 75 mg PO DAILY Qty: 90 0RF nitroglycerin 0.4 mg Tablet, Sublingual 0.4 mg sublingual Q5M PRN (Reason: Chest Pain) Qty: 25 0RF losartan 50 mg tablet 100 mg PO DAILY Discontinued metoprolol tartrate 50 mg tablet 50 mg PO BID Qty: 60 0RF Discharge Orders: Discharge Order (Routine); Ordered 10/23/23 Ordered By: Pino Ward Other Ambulatory Orders: MCT/Event Monitor 21 Days (Routine) Timeframe: 1 Day Facility: [facility] - Location: Radiology Ordered By: Pino Ward Referrals: [facility] [Provider Group] - 1 week (Anxiety) Beni Wong M.D [Physician] - 1 week (lluvia/tachy) Jayden Arreola MD [Primary Care Provider] - 4-7 days Patient Instructions: Metoprolol (By mouth), Sertraline (By mouth) Activity Restrictions/Additional Instructions: Reduce metoprolol dose as discussed down to 25 mg twice daily. Monitor heart rates at least 2-3 times daily yourself, and he will be set up with a heart monitor to further assess episodes of slow heart rate, fast heart rate. Follow-up with cardiology in office for reassessment. Hold metoprolol dose in case heart rate is below 60 bpm. Follow-up with your primary doctor also regarding anxiety and consider establishing care with behavioral health care to help with significant anxiety, continue sertraline and discussed with both providers. Seek medical attention in case of any worsening or new concerning symptoms. Discharge Attestations Time Spent in Discharge Care*: greater than 30 min Quality Metrics Clinical Quality Measures [ No reported AMI, CVA or VTE this stay] Coding Level of Care Code 14621 Total time (in minutes) for Discharge: 50 Diagnoses Symptomatic bradycardia R00.1 Vasovagal episode R55 Labile blood pressure R09.89 Anxiety F41.9
[2023-10-23 12:00] VITALS: BP 164/91; PULSE 81; RESP 16; TEMP 36.5; O2SAT 98
[2023-10-23 13:27] VITALS: BP 164/91; PULSE 81; RESP 16; TEMP 36.5; O2SAT 98
--- NOTE | 2023-10-23 14:12 | PC.NURSE ---
Discharge Note Patient discharged to [home] via [w/c to POV] accompanied by [his parents]. Discharge instructions reviewed with patient and/or inventory representative. Mobile pharmacy medications and/or prescriptions provided. Belongings/home medications returned.
== END 2023-10-23 14:05 | disposition home or self-care (01) | DRG 316 ==
LOC: ER 20:15 → CSU 20:25
PROVIDERS: Family Medicine; Student in an Organized Health Care Education/Training Program; Admitting Provider Family Medicine; Emergency Provider Emergency Medicine; PCP Family Medicine; Visit Provider Internal Medicine
DX: I95.9 Hypotension, unspecified (principal); R00.1 Bradycardia, unspecified; R55 Syncope and collapse; R09.89 Other specified symptoms and signs involving the circulatory and respiratory systems; F41.9 Anxiety disorder, unspecified; Z79.02 Long term (current) use of antithrombotics/antiplatelets; Z79.82 Long term (current) use of aspirin; I10 Essential (primary) hypertension; Z72.0 Tobacco use; I51.7 Cardiomegaly
CPT/HCPCS: 36415; 71045; 80053; 80061; 80306; 81003; 82607; 82746; 83036; 83540; 83550; 84443; 84484; 85025; 93005; 99285; J0461; J7030

== ENCOUNTER 2025-03-26 18:00 | Emergency (ER) | payer MEDICAID, SELFPAY ==
[2025-03-26 18:03] VITALS: BP 135/94; PULSE 105; RESP 18; TEMP 36.8; O2SAT 99; BMI 29.5
--- OUTSIDE RECORDS SUMMARY | 2025-03-26 18:09 | XMS_ITS | Continuity of Care Document ---
Author Organization [place] - Pan Pandey [facility] [place] Address [address] [place] [address] Assessment No assessment recorded. Plan of Treatment Reminders Order Date Submit Date Provider Last Modified By Organization Details Last Modified Time Details Appointments RETURN 2025 09:15A M JASMINE BUENO PA-C Not available Not available Not available Lab None recorded. Referral None recorded. Procedures None recorded. Surgeries None recorded. Imaging None recorded. Medication Orders famotidin e 40 mg tablet 2024 025 [facility], [address] [facility] [place], [id number], 02/26/2025 13:16:49 Patient TargetsNo targets recorded. Patient Instructions Encounter Date Encounter Id Patient Instructions Last Modified By Organization Details Last Modified Time 01/09/2025 [id number] Patient discharged to self to home in stable condition. Follow up instructions given. [email or web address] Not available 01/09/2025 14:45:37 Reason for Referral None Reported. Problems Name Problem SNOMED Code Status Onset Date Resolution Date Notes Provider Name and Address Organization Details Recorded Time Myocardial infarction 16162544 Active 2023 Not Available [facility] 19:55:35 Hypertensiv e disorder 72697025 Active 2023 Not Available [facility] 19:55:35 Pancreatiti s 98135083 Completed 202305/03/2023 Not Available [facility] 19:55:35 Problem Notes None recorded. Procedures Surgical History Date Name Laterality Status Provider Name and Address Organization Details Recorded Time Cholecystectomy completed Not Available [facility] 02/04/2024 19:52:05 Imaging Results None recorded. Procedure Notes None recorded. Medical Equipment None Reported. Medications Name Sig Start Date Stop Date Status Note LastModified by Organization Details LastModified Time losartan 50 mg tablet TAKE 1/2 (ONE-HALF ) TABLET BY MOUTH ONCE DAILY 03/26 completed Not Available Not Available Not Available cyclobenzap rine 10 mg tablet TAKE 1/2 TO 1 TABLET BY MOUTH AT BEDTIME FOR FOR BACK pain/musc le SPASMS 12/04 completed Not Available Not Available Not Available atorvastati n 40 mg tablet Take 1 tablet every day by oral route active Not Available Not Available No t Available famotidine 40 mg tablet Take 1 tablet twice a day by oral route for 30 days. 2024 active Not Available Not Available Not Avai lable clonazepam 0.5 mg tablet Take 1 tablet 3 times a day by oral route as needed for 10 days. 08/05 completed Not Available Not Available Not Available clopidogrel 75 mg tablet TAKE 1 TABLET BY MOUTH ONCE DAILY active Not Available Not Available No t Available aspirin 81 mg tablet,ty yed release Take 1 tablet every day by oral route. 2023 active Not Available Not Available Not Avai lable clonidine HCl 0.2 mg tablet take one tablet by mouth for bp >170 systolic >100 diastolic , may repeat dose in three hours if needed active Not Available Not Available No t Available amoxicillin 875 mg tablet Take 1 tablet every 12 hours by oral route for 14 days. 08/05 completed Not Available Not Available Not Available trazodone 100 mg tablet Take 1 tablet every day by oral route at bedtime for 30 days. 06/12 completed Not Available Not Available Not Available buspirone 30 mg tablet TAKE 1 TABLET BY MOUTH THREE TIMES DAILY 06/12 completed Not Available Not Available Not Available buspirone 10 mg tablet TAKE 1 TABLET BY MOUTH THREE TIMES DAILY 05/30 completed Not Available Not Available Not Available clonazepam 2 mg tablet TAKE 1 TABLET BY MOUTH NEEDED FOR anxiety. DO not take more THAN 2/day active Not Available Not Available No t Available losartan 25 mg tablet Take 1 tablet every day by oral route. 05/30 completed Not Available Not Available Not Available metoprolol tartrate 50 mg tablet TAKE 1 TABLET BY MOUTH TWICE DAILY 03/26 completed Not Available Not Available Not Available nitroglycer in 0.[address] 1 tablet every day by sublingua l route as needed. 2023 active Not Available Not Available Not Avai lable sertraline 25 mg tablet Take 1 tablet every day by oral route for 30 days. active Not Available Not Available No t Available hydroxyzine HCl 25 mg tablet one tablet by mouth twice daily, 2 tablets at bedtime active Not Available Not Available No t Available losartan 100 mg tablet TAKE 1 TABLET BY MOUTH EVERY DAY active Not Available Not Available No t Available sertraline 50 mg tablet Take 1 tablet every day by oral route for 90 days. active Not Available Not Available No t Available esomeprazol e magnesium 20 mg capsule,del ayed release TAKE ONE CAPSULE EVERY DAY 2024 active Not Available Not Available Not Avai lable metoprolol tartrate 25 mg tablet Take 1 tablet twice a day by oral route for 90 days. active Not Available Not Available No t Available Vitals Date Recorded Body height Body mass index (BMI) Body weight Body temperature Oxygen saturation Heart rate Systolic And Diastolic Provider Name and Address Organization Details Last Updated DateTime 5 177.8 cm 29.6 kg/m2 20258.1 3 g 97.9 [degF] 98 % 77 /min 121/88 mm[Hg] andres Pandey Md [facility] 10:06:59 Social History Question Answer Notes LastModified by Organizat ion Details LastModified Time Tobacco Smoking Status Former Smoker Not Available [facility] 02/04/2024 19:52:18 Are You Blind Or Do You Have Difficulty Seeing? No [id number] 900 Information not available 02/04/2024 What Is Your Level Of Caffeine Consumption? Moderate [id number].[id number] 900 Information not available 02/04/2024 Are You Deaf Or Do You Have Serious Difficulty Hearing? No [id number].[id number] 900 Information not available 02/04/2024 What Type Of Diet Are You Following? REGULAR MIGRATION.2080927 900 Information not available 02/04/2024 What Was The Date Of Your Most Recent Tobacco Screening? 12/05/2023 [id number].[id number] 900 Information not available 02/04/2024 How Many Children Do You Have? 2 MIGRATION.4216440 900 Information not available 02/04/2024 What Is Your Relationship Status? MIGRATION.[id number] 900 Information not available 02/04/2024 At What Age Did You Start Smoking Tobacco? 12 MIGRATION.5817532 900 Information not available 02/04/2024 How Much Tobacco Do You Smoke? No MIGRATION.6253945 900 Information not available 02/04/2024 Has Tobacco Cessation Counseling Been Provided? No MIGRATION.3368918 900 Information not available 02/04/2024 How Many Years Have You Smoked Tobacco? 30 MIGRATION.9413444 900 Information not available 02/04/2024 Do You Have Difficulty Walking Or Climbing Stairs? No MIGRATION.7926617 900 Information not available 02/04/2024 Sex: Unknown Functional Status Question Answer Note LastModified by Organizat ion Details LastModified Time Do you use any illicit or recreational drugs? No [id number].[id number] 00 Information not available 02/04/2024 Do you or have you ever used any other forms of tobacco or nicotine? No MIGRATION.31465935 00 Information not available 02/04/2024 What is your level of alcohol consumption? None MIGRATION.[id number] 00 Information not available 02/04/2024 Are you currently employed? No MIGRATION.71407642 00 Information not available 02/04/2024 Do you have difficulty doing errands alone? No MIGRATION.[id number] 00 Information not available 02/04/2024 Are you able to care for yourself independently? Yes MIGRATION.02422125 00 Information not available 02/04/2024 Do you have difficulty dressing, bathing, grooming, or toileting? No MIGRATION.65379560 00 Information not available 02/04/2024 Do you or have you ever used any nicotine-free cigarettes, vape, or chewing tobacco? No MIGRATION.46978191 00 Information not available 02/04/2024 Mental Status Question Answer Note LastModified by Organizat ion Details LastModified Time Do you have difficulty concentrating, remembering or making decisions? No [id number] 0 Information not available 02/04/2024 Family History Nothing Reported. Medical History No medical history recorded. Past Encounters Encounter ID Performer Location Encounter Start Date Encounter Closed Date Diagnosis/Indication Diagnosis SNOMED-CT Code Diagnosis ICD10 Code Diagnosis IMO Codes Diagnosis Note [id number] [facility] [address] [place] [id number] 01/09/2025 09:53:46 01/14/2025 14:17:44 Gastroesophageal reflux disease without esophagitis 326587361 K21.9 556645 d/c nexium, begin taking pepcid as directed. Essential hypertension 82926111 I10 42890 continue using as directed Mixed hyperlipidemia 267 968899 E78.2 41045 use as directed Health Concerns Section Related Observation LastModified by Organization Detai ls LastModified Time None Recorded Concern Status LastModified by Organization Details LastModified Time None Recorded Payers Encounter Date Sequence Insurance Name Policy Number Policy Apple Covered Member ID Apple Member ID Guarantor Name 01/09/2025 1 [facility] R[facility] [id number] Ruelas Notes Date Note Type Note Provider Name and Address Organization Details Recorded Time 01/09/2025 text/html pt. is here today for a follow up JASMINE BUENO PA-C [address], [place], [address], [place] - Pan Pandey [facility] 01/09/2025 14:45:55
--- OUTSIDE RECORDS SUMMARY | 2025-03-26 18:09 | XMS_ITS | Patient Health Record ---
Author Organization [facility] Address [address] [place] [address] Care Team Providers Care Party Plan Sales Consultant Name Role Phone Erica Markham Unavailable [phone] Reason For Referral No Information Medications Medication SIG (Take, Route, Fr equency, Duration) Notes Start Date End Date Status Ursodiol 250 MG Tablet TAKE 1 TABLET 3 T IMES DAILY. Oral 3 times daily 11/25/2015 Active Plan Of Treatment No Information Insurance Providers Payer Name Payer Address Payer Phone Subscriber Number Group Number Insured Name Patient Relationship to Insured Coverage Start Date Coverage End Date [facility] [employer] [address] [place] [phone] Dennis Ruelas Self - patient is the insured
--- OUTSIDE RECORDS SUMMARY | 2025-03-26 18:10 | XMS_ITS | Data Portability ---
Author Organization [facility], autoContract Address [address] [place] [id number] Assessment No assessment recorded. Plan of Treatment Reminders Order Date Submit Date Provider Last Modified By Organization Details Last Modified Time Details Appointments RETURN 2025 09:15A Amarilys BUENO PA-C Not available Not available Not available Lab CMP, serum or plasma 2024 025 [facility] [place], [address], [address], [place], [address], 10/09/2024 06:09:13 CBC 2024 025 [facility] [place], [address], [address], [place], [address], 10/09/2024 06:09:15 lipid panel, serum 2024 025 [facility], [address], [address], [place], [address], 10/09/2024 06:09:14 Referral None recorded. Procedures None recorded. Surgeries None recorded. Imaging None recorded. Medication Orders famotidin e 40 mg tablet 2024 025 [facility], [address] [facility] [place], [address], 02/26/2025 13:16:49 Nexium 20 mg capsule,d elayed release 2024 025 [facility], [address] [place], [address], 01/09/2025 10:37:54 clonidine HCl 0.2 mg tablet 2024 025 [facility], [address] [place], [address], 12/12/2024 12:27:42 metoprolo l tartrate 25 mg tablet 2024 025 [facility], [address] [place], [address], 12/16/2024 12:15:41 losartan 100 mg tablet 2024 025 [facility], [address] [place], [address], 12/16/2024 12:15:39 clopidogr el 75 mg tablet 2024 025 [facility], [address] [place], [address], 12/16/2024 12:15:41 atorvasta tin 40 mg tablet 2024 025 [facility], [address] [place], [address], 12/16/2024 12:15:38 clonazepa m 2 mg tablet 2024 025 [facility], [address] [place], [address], 12/16/2024 12:15:42 sertralin e 50 mg tablet 2024 025 [facility], [address] [place], [address], 02/26/2025 13:16:50 atorvasta tin 40 mg tablet 2023 024 [facility], [address] [place], [address], 08/05/2024 15:01:13 clonazepa m 2 mg tablet 2023 024 [facility], [address] [place], [address], 08/05/2024 15:01:14 sertralin e 50 mg tablet 2023 024 [facility], [address] [place], [address], 08/05/2024 15:01:13 amoxicill in 875 mg tablet 2023 025 [facility], [address] [place], [address], 08/05/2024 14:41:55 metoprolo l tartrate 25 mg tablet 2023 024 [facility], [address] [place], [address], 08/05/2024 15:01:16 losartan 100 mg tablet 2023 024 [facility], [address] [place], [address], 08/05/2024 15:01:15 clonidine HCl 0.2 mg tablet 2023 024 [facility], [address] [place], [address], 03/26/2024 13:00:32 Nexium 20 mg capsule,d elayed release 2023 024 [facility], [address] [place], [address], 02/26/2025 13:16:52 clopidogr el 75 mg tablet 2023 024 [facility], [address] [place], [address], 08/05/2024 15:01:18 Patient TargetsNo targets recorded. Patient Instructions Encounter Date Encounter Id Patient Instructions Last Modified By Organization Details Last Modified Time 03/26/2024 [id number] Patient discharged to self to home in stable condition. Follow up instructions given. Not available 03/26/2024 09:59:04 08/05/2024 [id number] Patient discharged to self to home in stable condition. Follow up instructions given. Not available 08/07/2024 08:35:53 10/08/2024 [id number] Patient discharged to self to home in stable condition. Follow up instructions given. Not available 10/08/2024 22:53:52 01/09/2025 [id number] Patient discharged to self to home in stable condition. Follow up instructions given. Not available 01/09/2025 14:45:37 Reason for Referral None Reported. Results Created Date Observation Date Name Description Value Unit Range Abnormal Flag Note LastModifiedBy Organization Detail LastModifiedTime 12/01/19 24 12/02/2023 CBC WITH DIFFE RENTI AL WBC 7.5 K/uL 4.0-11 .0 Not Available [facility] [address] [place], [address], 12/02/2023 07:11:54 12/01/19 24 12/02/2023 CBC WITH DIFFE RENTI AL RBC 5.24 M/uL 4.30-5 .70 Not Available [facility] [address] [facility] [place], [address], 12/02/2023 07:11:54 12/01/1912/02/2023 CBC WITH DIFFE RENTI AL hemoglobin 16.3 g/dL 13.0-1 7.5 Not Available [facility] [address] [facility] [place], [address], 12/02/2023 07:11:54 12/01/19 24 12/02/2023 CBC WITH DIFFE RENTI AL hematocrit 49.3 % 39.0-5 5.0 Not Available [facility] [address] [facility] [place] [place], [address], 12/02/2023 07:11:54 12/01/19 24 12/02/2023 CBC WITH DIFFE RENTI AL MCV 94.1 fL 78.0-1 02.0 Not Available [facility] [address] [place] [place], [place], [address], 12/02/2023 07:11:54 12/01/19 24 12/02/2023 CBC WITH DIFFE RENTI AL MCH 31.1 pg 25.0-3 5.0 Not Available [facility] [address] [place] [place], [place], [address], 12/02/2023 07:11:54 12/01/19 24 12/02/2023 CBC WITH DIFFE RENTI AL MCHC 33.1 g/dL 30.0-3 8.0 Not Available [facility] [address] [place], [place], [address], 12/02/2023 07:11:54 12/01/19 24 12/02/2023 CBC WITH DIFFE RENTI AL RDW 13.7 % 11.5-1 6.0 Not Available [facility] [address], [place], [address], 12/02/2023 07:11:54 12/01/19 24 12/02/2023 CBC WITH DIFFE RENTI AL platelet count 239 K/uL 150-45 0 Not Available [facility] [address] [place], [address], 12/02/2023 07:11:54 12/01/19 24 12/02/2023 CBC WITH DIFFE RENTI AL abs neutrophils 4.4 K/uL 1.8-7. 0 Not Available [facility] [address] [place], [address], 12/02/2023 07:11:54 12/01/19 24 12/02/2023 CBC WITH DIFFE RENTI AL abs lymphocytes 2.1 K/uL 1.0-4. 0 Not Available [facility] [address], [place], [address], 12/02/2023 07:11:54 12/01/19 24 12/02/2023 CBC WITH DIFFE RENTI AL abs monocytes 0.7 K/uL 0.1-1. 1 Not Available [facility] [address] [place], [address], 12/02/2023 07:11:54 12/01/19 24 12/02/2023 CBC WITH DIFFE RENTI AL abs eosinophils 0.2 K/uL 0.0-0. 5 Not Available [facility] [address] [place], [place], [address], 12/02/2023 07:11:54 12/01/19 24 12/02/2023 CBC WITH DIFFE RENTI AL abs basophils 0.1 K/uL 0.0-0. 3 Not Available [facility] [address] [place], [address], 12/02/2023 07:11:54 12/01/19 24 12/02/2023 CBC WITH DIFFE RENTI AL abs immature grans 0.0 K/uL 0.0-0. 1 Not Available [facility] [address] [place], [address], 12/02/2023 07:11:54 12/01/19 24 12/02/2023 CBC WITH DIFFE RENTI AL neutrophils 59.0 % Not Available [facility] [address] [place], [address], 12/02/2023 07:11:54 12/01/19 24 12/02/2023 CBC WITH DIFFE RENTI AL lymphocytes 27.9 % Not Available [facility] [address], [place], [address], 12/02/2023 07:11:54 12/01/19 24 12/02/2023 CBC WITH DIFFE RENTI AL monocytes 9.0 % Not Available [facility] [address], [place], [address], 12/02/2023 07:11:54 12/01/19 24 12/02/2023 CBC WITH DIFFE RENTI AL eosinophils 2.7 % Not Available [facility] [address], [place], [address], 12/02/2023 07:11:54 12/01/19 24 12/02/2023 CBC WITH DIFFE RENTI AL basophils 0.9 % Not Available [facility] [address], [place], [address], 12/02/2023 07:11:54 12/01/19 24 12/02/2023 CBC WITH DIFFE RENTI AL immature grans 0.5 % Not Available [facility] [address], [place], [address], 12/02/2023 07:11:54 12/01/19 24 12/02/2023 CBC WITH DIFFE RENTI AL nucleated RBCs <1.0 /100_ WBCs <1 Not Available [facility] [address], [place], [address], 12/02/2023 07:11:54 12/01/19 24 12/02/2023 LIPID PROFI LE cholesterol 119 mg/dL <200 Not Available [facility] [address], [place], [address], 12/02/2023 07:11:53 12/01/19 24 12/02/2023 LIPID PROFI LE triglyceride s 114 mg/dL 0-149 Not Available [facility] [address], [place], [address], 12/02/2023 07:11:53 12/01/19 24 12/02/2023 LIPID PROFI LE HDL cholesterol 33 mg/dL >39 low Not Available [facility] [address], [place], [address], 12/02/2023 07:11:53 12/01/19 24 12/02/2023 LIPID PROFI LE LDL cholesterol 66 mg/dL <100 Not Available [facility] [address], [place], [address], 12/02/2023 07:11:53 12/01/19 24 12/02/2023 LIPID PROFI LE non HDL cholesterol 86 mg/dL <130 Not Available [facility] [address] [place], [address], 12/02/2023 07:11:53 12/01/19 24 12/02/2023 LIPID PROFI LE coronary risk ratio 3.61 <4.97 Comme nt for LIPID PROFI LE Non-H DL Fernanda stero l is a cami r indic ator for cardi ovasc ular risk than LDL-C holes terol for patie nts who have incre ased trigl yceri belén or are non-f astin g. Non-H DL Fernanda stero l: < 130 mg/dL (Opti mal) < 160 mg/dL (Near Optim al/Ab ove Optim al) LDL Fernanda stero l: < 100 mg/dL (Opti mal) < 130 mg/dL (Near Optim al/Ab ove Optim al) Coron casey Risk Ratio : [facility] [facility] for males < 4.97 Not Available [facility] [address] [place], [address], 12/02/2023 07:11:53 12/01/19 24 12/02/2023 COMP METAB OLIC PANEL carbon dioxide 24 mEq/L 19-31 Not Available [facility] [address] [place], [address], 12/02/2023 07:11:52 12/01/19 24 12/02/2023 COMP METAB OLIC PANEL sodium 141 mEq/L 135-14 6 Not Available [facility] [address], [place], [address], 12/02/2023 07:11:52 12/01/19 24 12/02/2023 COMP METAB OLIC PANEL potassium 4.5 mEq/L 3.5-5. 4 Not Available [facility] [address], [place], [address], 12/02/2023 07:11:52 12/01/19 24 12/02/2023 COMP METAB OLIC PANEL chloride 102 mEq/L 95-107 Not Available [facility] [address] [place], [address], 12/02/2023 07:11:52 12/01/19 24 12/02/2023 COMP METAB OLIC PANEL anion gap 15 mEq/L 7-23 Not Available [facility] [address], [place], [address], 12/02/2023 07:11:52 12/01/19 24 12/02/2023 COMP METAB OLIC PANEL glucose fasting 84 mg/dL 70-99 Not Available [facility] [address], [place], [address], 12/02/2023 07:11:52 12/01/19 24 12/02/2023 COMP METAB OLIC PANEL urea nitrogen (BUN) 8 mg/dL 6-20 Not Available [facility] [address] [place], [address], 12/02/2023 07:11:52 12/01/19 24 12/02/2023 COMP METAB OLIC PANEL creatinine 1.16 mg/dL 0.80-1 .40 Not Available [facility] [address] [place], [address], 12/02/2023 07:11:52 12/01/1912/02/2023 COMP METAB OLIC PANEL 2020 CKD-epi eGFR-cr 78 mL/mi n/1.7 3m'2 >59 Not Available [facility] [address], [place], [address], 12/02/2023 07:11:52 12/01/19 24 12/02/2023 COMP METAB OLIC PANEL BUN/creatini ne ratio 7 ratio Not Available [facility] [address], [place], [address], 12/02/2023 07:11:52 12/01/19 24 12/02/2023 COMP METAB OLIC PANEL calcium total 9.0 mg/dL 8.5-10 .5 Not Available [facility] [address], [place], [address], 12/02/2023 07:11:52 12/01/19 24 12/02/2023 COMP METAB OLIC PANEL protein total 6.8 g/dL 6.1-8. 3 Not Available [facility] [address] [place], [address], 12/02/2023 07:11:52 12/01/19 24 12/02/2023 COMP METAB OLIC PANEL albumin 4.1 g/dL 3.5-5. 2 Not Available [facility] [address] [place], [address], 12/02/2023 07:11:52 12/01/19 24 12/02/2023 COMP METAB OLIC PANEL globulin 2.7 g/dL 1.7-4. 3 Not Available [facility] [address], [place], [address], 12/02/2023 07:11:52 12/01/19 24 12/02/2023 COMP METAB OLIC PANEL A/G ratio 1.5 ratio 0.9-2. 8 Not Available [facility] [address], [place], [address], 12/02/2023 07:11:52 12/01/19 24 12/02/2023 COMP METAB OLIC PANEL bilirubin total 0.9 mg/dL 0.0-1. 2 Not Available [facility] [address], [place], [address], 12/02/2023 07:11:52 12/01/19 24 12/02/2023 COMP METAB OLIC PANEL alkaline phosphatase 141 U/L 40-118 high Not Available [facility] [address], [place], [address], 12/02/2023 07:11:52 12/01/19 24 12/02/2023 COMP METAB OLIC PANEL AST (SGOT) 34 U/L 9-50 Not Available [facility] [address], [place], [address], 12/02/2023 07:11:52 12/01/19 24 12/02/2023 COMP METAB OLIC PANEL ALT (SGPT) 32 U/L 5-50 Not Available [facility] [address], [place], [address], 12/02/2023 07:11:52 10/09/19 25 10/09/2024 COMP METAB OLIC PANEL sodium 139 mEq/L 135-14 6 Not Available [facility] [address] [place], [address], 10/09/2024 06:09:13 10/09/1910/09/2024 COMP METAB OLIC PANEL potassium 4.2 mEq/L 3.5-5. 4 Not Available [facility] [address] [place], [address], 10/09/2024 06:09:13 10/09/1910/09/2024 COMP METAB OLIC PANEL chloride 102 mEq/L 95-107 Not Available [facility] [address] [place], [address], 10/09/2024 06:09:13 10/09/1910/09/2024 COMP METAB OLIC PANEL carbon dioxide 26 mEq/L 19-31 Not Available [facility] [address] [place], [address], 10/09/2024 06:09:13 10/09/1910/09/2024 COMP METAB OLIC PANEL anion gap 11 mEq/L 7-23 Not Available [facility] [address] [place], [address], 10/09/2024 06:09:13 10/09/1910/09/2024 COMP METAB OLIC PANEL glucose non-fasting 83 mg/dL 70-139 Not Available [facility] [address] [place], [address], 10/09/2024 06:09:13 10/09/1910/09/2024 COMP METAB OLIC PANEL urea nitrogen (BUN) 9 mg/dL 6-20 Not Available [facility] [address] [place], [address], 10/09/2024 06:09:13 10/09/19 25 10/09/2024 COMP METAB OLIC PANEL creatinine 1.17 mg/dL 0.80-1 .40 Not Available [facility] [address], [place], [address], 10/09/2024 06:09:13 10/09/1910/09/2024 COMP METAB OLIC PANEL 2020 CKD-epi eGFR-cr 76 mL/mi n/1.7 3m'2 >59 Not Available [facility] [address], [place], [address], 10/09/2024 06:09:13 10/09/1910/09/2024 COMP METAB OLIC PANEL BUN/creatini ne ratio 8 ratio Not Available [facility] [address], [place], [address], 10/09/2024 06:09:13 10/09/1910/09/2024 COMP METAB OLIC PANEL calcium total 8.9 mg/dL 8.5-10 .5 Not Available [facility] [address], [place], [address], 10/09/2024 06:09:13 10/09/1910/09/2024 COMP METAB OLIC PANEL protein total 6.8 g/dL 6.1-8. 3 Not Available [facility] [address], [place], [address], 10/09/2024 06:09:13 10/09/1910/09/2024 COMP METAB OLIC PANEL albumin 3.9 g/dL 3.5-5. 2 Not Available [facility] [address] [place], [address], 10/09/2024 06:09:13 10/09/19 25 10/09/2024 COMP METAB OLIC PANEL globulin 2.9 g/dL 1.7-4. 3 Not Available [facility] [address] [place], [address], 10/09/2024 06:09:13 10/09/1910/09/2024 COMP METAB OLIC PANEL A/G ratio 1.3 ratio 0.9-2. 8 Not Available [facility] [address] [place], [address], 10/09/2024 06:09:13 10/09/19 25 10/09/2024 COMP METAB OLIC PANEL bilirubin total 0.9 mg/dL 0.0-1. 2 Not Available [facility] [address] [place], [address], 10/09/2024 06:09:13 10/09/19 25 10/09/2024 COMP METAB OLIC PANEL alkaline phosphatase 181 U/L 40-118 high Not Available [facility] [address] [place], [address], 10/09/2024 06:09:13 10/09/19 25 10/09/2024 COMP METAB OLIC PANEL AST (SGOT) 29 U/L 9-50 Not Available [facility] [address] [place], [address], 10/09/2024 06:09:13 10/09/19 25 10/09/2024 COMP METAB OLIC PANEL ALT (SGPT) 28 U/L 5-50 Not Available [facility] [address] [place], [address], 10/09/2024 06:09:13 10/09/19 25 10/09/2024 LIPID PROFI LE cholesterol 140 mg/dL <200 Not Available [facility] [address] [place], [address], 10/09/2024 06:09:14 10/09/19 25 10/09/2024 LIPID PROFI LE triglyceride s 166 mg/dL 0-149 high Not Available [facility] [address] [place], [address], 10/09/2024 06:09:14 10/09/19 25 10/09/2024 LIPID PROFI LE HDL cholesterol 32 mg/dL >39 low Not Available [facility] [address] [facility] [place], [address], 10/09/2024 06:09:14 10/09/1910/09/2024 LIPID PROFI LE LDL cholesterol 82 mg/dL <100 Not Available [facility] [address] [facility] [place], [address], 10/09/2024 06:09:14 10/09/19 25 10/09/2024 LIPID PROFI LE non HDL cholesterol 108 mg/dL <130 Not Available [facility] [address] [facility] [place], [address], 10/09/2024 06:09:14 10/09/1910/09/2024 LIPID PROFI LE coronary risk ratio 4.38 <4.97 Comme nt for LIPID PROFI LE Non-H DL Fernanda stero l is a cami r indic ator for cardi ovasc ular risk than LDL-C holes terol for patie nts who have incre ased trigl yceri belén or are non-f astin g. Non-H DL Fernanda stero l: < 130 mg/dL (Opti mal) < 160 mg/dL (Near Optim al/Ab ove Optim al) LDL Fernanda stero l: < 100 mg/dL (Opti mal) < 130 mg/dL (Near Optim al/Ab ove Optim al) Coron casey Risk Ratio : [place] [facility] for males < 4.97 Not Available [facility] [address] [facility] [place], [address], 10/09/2024 06:09:14 10/09/19 25 10/09/2024 CBC W/O DIFFE RENTI AL WBC 8.9 K/uL 4.0-11 .0 Not Available [facility] [address], [place], [address], 10/09/2024 06:09:15 10/09/1910/09/2024 CBC W/O DIFFE RENTI AL RBC 4.62 M/uL 4.30-5 .70 Not Available [facility] [address] [place], [address], 10/09/2024 06:09:15 10/09/1910/09/2024 CBC W/O DIFFE RENTI AL hemoglobin 14.6 g/dL 13.0-1 7.5 Not Available [facility] [address] [place], [address], 10/09/2024 06:09:15 10/09/1910/09/2024 CBC W/O DIFFE RENTI AL hematocrit 44.3 % 39.0-5 5.0 Not Available [facility] [address] [place], [address], 10/09/2024 06:09:15 10/09/1910/09/2024 CBC W/O DIFFE RENTI AL MCV 95.9 fL 78.0-1 02.0 Not Available [facility] [address] [place], [address], 10/09/2024 06:09:15 10/09/1910/09/2024 CBC W/O DIFFE RENTI AL MCH 31.6 pg 25.0-3 5.0 Not Available [facility] [address] [place], [address], 10/09/2024 06:09:15 10/09/19 25 10/09/2024 CBC W/O DIFFE RENTI AL MCHC 33.0 g/dL 30.0-3 8.0 Not Available [facility] [address] [place], [address], 10/09/2024 06:09:15 10/09/19 25 10/09/2024 CBC W/O DIFFE RENTI AL platelet count 244 K/uL 150-45 0 Not Available [facility] [address] [place], [address], 10/09/2024 06:09:15 10/09/1910/09/2024 CBC W/O DIFFE RENTI AL RDW 14.0 % 11.5-1 6.0 Not Available [facility] [address] [place], [address], 10/09/2024 06:09:15 Result Notes None recorded. Problems Name Problem SNOMED Code Status Onset Date Resolution Date Notes Provider Name and Address Organization Details Recorded Time Myocardial infarction 14118350 Active 2023 Not Available [facility] 4 19:55:35 Hypertensiv e disorder 39280586 Active 2023 Not Available [facility] 4 19:55:35 Pancreatiti s [id number] Completed 202305/03/2023 Not Available [facility] 4 19:55:35 Problem Notes None recorded. Procedures Surgical History Date Name Laterality Status Provider Name and Address Organization Details Recorded Time Cholecystectomy completed Not Available [facility] 02/04/2024 19:52:05 Imaging Results None recorded. Procedure [...] height Body mass index (BMI) Body weight Heart rate Systolic And Diastolic Provider Name and Address Organization Details Last Updated DateTime 08/05/2024 177.8 cm 27.6 kg/m2 69082.79 g 87 /min 172/111 mm[Hg] Radha [facility] 08/05/2024 14:45:46 Date Recorded Body height Body mass index (BMI) Body weight Body temperature Oxygen saturation Heart rate Systolic And Diastolic Provider Name and Address Organization Details Last Updated DateTime 5 177.8 cm 28.4 kg/m2 35980.9 9 g 97.5 [degF] 98 % 85 /min 134/90 mm[Hg] andres Pandey [facility] 5 10:10:56 Date Recorded Oxygen saturation Respiratory rate Body height Body mass index (BMI) Body weight Heart rate Body temperature Systolic And Diastolic Provider Name and Address Organization Details Last Updated DateTime 4 99 % 20 /min 177.8 cm 26.5 kg/m2 81462.5 1 g 67 /min 96.7 [degF] 151/103 mm[Hg] Not Available [facility] 4 19:55:30 Date Recorded Body height Body mass index (BMI) Body weight Body temperature Oxygen saturation Heart rate Systolic And Diastolic Provider Name and Address Organization Details Last Updated DateTime 5 177.8 cm 29.6 kg/m2 49743.1 3 g 97.9 [degF] 98 % 77 /min 121/88 mm[Hg] andres [facility]ey [facility] 5 10:06:59 Date Recorded Body height Body mass index (BMI) Body weight Body temperature Heart rate Oxygen saturation Systolic And Diastolic Provider Name and Address Organization Details Last Updated DateTime 4 177.8 cm 28.3 kg/m2 60920.7 g 96.8 [degF] 89 /min 99 % 149/100 mm[Hg] Haroldo [facility] 4 09:36:42 Social History Question Answer Notes LastModified by [employer] Details LastModified Time Tobacco Smoking Status Former Smoker Not Available [facility] 02/04/2024 19:52:18 Are You Blind Or Do You Have Difficulty Seeing? No [id number] Information not available 02/04/2024 What Is Your Level Of Caffeine Consumption? Moderate [id number] Information not available 02/04/2024 Are You Deaf Or Do You Have Serious Difficulty Hearing? No [id number] Information not available 02/04/2024 What Type Of Diet Are You Following? REGULAR [id number] Information not available 02/04/2024 What Was The Date Of Your Most Recent Tobacco Screening? 12/05/2023 [id number] 900 Information not available 02/04/2024 How Many Children Do You Have? 2 [id number] 900 Information not available 02/04/2024 What Is Your Relationship Status? [id number] 900 Information not available 02/04/2024 At What Age Did You Start Smoking Tobacco? 12 [id number].[id number] 900 Information not available 02/04/2024 How Much Tobacco Do You Smoke? No MIGRATION.[id number] 900 Information not available 02/04/2024 Has Tobacco Cessation Counseling Been Provided? No MIGRATION.[id number] 900 Information not available 02/04/2024 How Many Years Have You Smoked Tobacco? 30 MIGRATION.0469746 900 Information not available 02/04/2024 Do You Have Difficulty Walking Or Climbing Stairs? No MIGRATION.[id number] 900 Information not available 02/04/2024 Sex: Unknown Functional Status Question Answer Note LastModified by [employer] Details LastModified Time Do you use any illicit or recreational drugs? No [id number] Information not available 02/04/2024 Do you or have you ever used any other forms of tobacco or nicotine? No [id number] 00 Information not available 02/04/2024 What is your level of alcohol consumption? None MIGRATION.[id number] 00 Information not available 02/04/2024 Are you currently employed? No MIGRATION.[id number] 00 Information not available 02/04/2024 Do you have difficulty doing errands alone? No MIGRATION.[id number] 00 Information not available 02/04/2024 Are you able to care for yourself independently? Yes MIGRATION.[id number] Information not available 02/04/2024 Do you have difficulty dressing, bathing, grooming, or toileting? No MIGRATION.[id number] Information not available 02/04/2024 Do you or have you ever used any nicotine-free cigarettes, vape, or chewing tobacco? No MIGRATION.87798758 Information not available 02/04/2024 Mental Status Question Answer Note LastModified by Organiz[employer] ion Details LastModified Time Do you have difficulty concentrating, remembering or making decisions? No [id number] Information not available 02/04/2024 Family History Nothing Reported. Medical History No medical history recorded. Past Encounters Encounter ID Performer Location Encounter Start Date Encounter Closed Date Diagnosis/Indication Diagnosis SNOMED-CT Code Diagnosis ICD10 Code Diagnosis IMO Codes Diagnosis Note [id number] [facility] [address] [place], [place] [address] 08/31/2023 00:00:00 08/31/2023 10:11:47 [id number] [facility] [address] [place], [place] [id number] 05/31/2023 00:00:00 05/31/2023 09:31:18 [id number] [facility] [address] [place] [address] 07/20/2023 00:00:00 07/21/2023 09:08:26 [id number] [facility] [address] [place] [address] 06/13/2023 00:00:00 06/14/2023 14:20:08 [id number] [facility] [address] [place] [address] 05/03/2023 00:00:00 05/03/2023 17:21:27 [id number] [facility] [address] [place] [id number] 10/27/2023 00:00:00 10/27/2023 11:40:40 [id number] [facility] [address] [place] [id number] 12/05/2023 00:00:00 12/06/2023 08:15:00 [id number] [address] [address] [address] [place] [id number] 03/26/2024 09:17:51 03/26/2024 16:51:04 Hyperlipidemia 20128611 E78.5 use as directed Coronary arteriosclerosis 00787793 I25.10 use as directed Essential hypertension 60172740 I10 continue using as directed Mixed anxi 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 will continue to monitor. Dental abscess 281000962 K04.7 pt advised to complete course of antibiotic s, alternate tylenol/ib u for fever, stay well hydrated, and to follow up to clinic if symptoms don't resolve or worsen Impacted c erumen of bilateral ears [id number] 021564 H61.23 tolerated well [id number] [facility] [address] [place] [id number] 08/05/2024 14:39:12 08/05/2024 14:45:01 Hypertensive disorder 86963170 I10 continue using as directed Anxiety 24951204 F41.9 increase bc pt will be flying. will continue to monitor. 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 Essential hypertension 85925606 I10 77388 continue using as directed Mixed hyperlipidemia 267 907996 E78.2 72772 use as directed Health Concerns Section Related Observation LastModified by Organization Detai ls LastModified Time None Recorded Concern Status LastModified by Organization Details LastModified Time None Recorded Advance Directives Directive None Recorded Payers Insurance Date Sequence Insurance Name Policy Number Policy Apple Covered Member ID Apple Member ID Guarantor Name 01/14/2025 1 [facility] Ruelas [id number] Dennis Ruelas Notes Date Note Type Note Provider Name and Address Organization Details Recorded Time 03/26/2024 text/html Patient is here for medications that need to be talked about and seeing if he can get a longer lasting prescription because [place] going [place] to [place] medical work done. JASMINE BUENO PA-C [address], [place], [address], [place] - Pan Pandey [facility] 05/14/2024 10:05:08 08/05/2024 text/html Hypertension F/UReported by PatientHPIFor associated symptoms, patient reportsno dizziness,no lightheadedness,no chest pain,no shortness of breath,no palpitations,no edema, andno calf pain with exertion. For lifestyle, patient reportsregular exerciseandlimiting/ avoiding salt. For medications, patient reportstaking medications as directedandno side effects from medication. Patient is here for a check up. JASMINE BUENO PA-C [address], [place], [address], [place] ANJEL Pandey Md [facility] 08/07/2024 08:36:09 10/08/2024 text/html Pt. is here today for a wellness visit. [address], [place], [address], ANJEL Pandey Md [facility] 10/08/2024 22:54:02 01/09/2025 text/html pt. is here today for a follow up [address], [place], [address], ANJEL Pandey Md [facility] 01/09/2025 14:45:55
--- NOTE | 2025-03-26 18:18 | ECG_ITS ---
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 [email or web address]
--- NOTE | 2025-03-26 18:18 | XRR_ITS ---
PROCEDURE INFORMATION: Exam: XR Chest Exam date and time: 03/26/2025 6:20 PM Age: 49 years old Clinical indication: Pain; Angina pectoris; Additional info: Chest pain TECHNIQUE: Imaging protocol: Radiologic exam of the chest. Views: 1 view. COMPARISON: CR XR chest 1V portable [id number] 10/21/2023 5:16 PM FINDINGS: Lungs: Unremarkable. No consolidation. Pleural spaces: Unremarkable. No pleural effusion. No pneumothorax. Heart/Mediastinum: Unremarkable. No cardiomegaly. Bones/joints: Unremarkable. XR/XR chest 1V portable [id number] IMPRESSION: No acute findings.
--- NOTE | 2025-03-26 18:32 | W.ED.CHESTPA ---
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 Associated symptoms: Reports dyspnea; Deny fever(s) or palpitations Related Data Home Medications ?Medication ?Instructions ?Recorded ?Confirmed esomeprazole magnesium 20 mg 40 mg PO QAM 04/24/23 12/12/23 capsule,delayed release (Nexium) losartan 50 mg tablet 100 mg PO DAILY 10/21/23 12/12/23 Previous Rx's ?Medication ?Instructions ?Recorded aspirin 81 mg capsule 81 mg PO DAILY #90 caps 04/26/23 atorvastatin 40 mg tablet 40 mg PO BEDTIME #90 tabs 04/26/23 clopidogrel 75 mg tablet 75 mg PO DAILY #90 tabs 04/26/23 nitroglycerin 0.4 mg sublingual 0.4 mg sublingual Q5M PRN Chest 04/26/23 tablet Pain #25 tabs metoprolol tartrate 25 mg tablet 25 mg PO BID@0900,2100 #90 tabs 10/23/23 sertraline 50 mg tablet 50 mg PO DAILY #90 tabs 12/12/23 Allergies Allergy/AdvReac Type Severity Reaction Status Date / Time No Known Allergies Allergy Verified 12/12/23 08:32 Review of Systems General: Reports: 10 or more systems reviewed and unremarkable except in HPI and below Const: Denies: fever(s) or chills Card: Reports: chest pain; Denies: palpitations, irregular heart rhythm, swelling of feet/ankles, lightheadedness (with anxiety), pre-syncope, dyspnea on exertion, orthopnea or leg pain with exertion Resp: Reports: dyspnea; Denies: productive cough or non-productive cough Musc: Denies: neck pain or back pain Neuro: Denies: headache(s) or dizziness Psych: Reports: anxiety; Denies: depression, suicidal ideation or homicidal ideation [place]/Lymph: Reports: easy bleeding; Denies: easy bruising PFSH ED PFSH: Medical History (Updated 03/26/25 @ 19:49 by MARYCRUZ Israel) Iliac artery occlusion, right external iliac History of biliary stent insertion Pancreatitis Surgical History Hx of cholecystectomy Social History Smoking and tobacco/nicotine status: former use of tobacco/nicotine Alcohol intake: never Substance/Drug Use: never Marital status: Single Physical Exam Const: COMMON NORMALS: no acute distress, patient oriented x3 and well nourished GENERAL APPEARANCE: cooperative, comfortable and well developed ORIENTATION/CONSCIOUSNESS: Yes awake, Yes oriented to person, Yes oriented to place and Yes oriented to time HENMT: COMMON NORMALS: normocephalic, hearing grossly normal bilaterally, external ears normal and Normal external nose present HEAD & SCALP: normocephalic NOSE: Normal external nose present EXTERNAL EAR: Yes external ears normal Eye: COMMON NORMALS: Equal, round and reactive pupils present, EOMs intact bilaterally and conjunctivae normal CONJUNCTIVA: Yes conjunctivae normal PUPIL: Yes Equal, round and reactive pupils present Chest: COMMONS NORMALS: normal inspection of the chest and normal palpation of entire chest wall CHEST: Yes Symmetrical chest wall rise Resp: COMMON NORMALS: normal respiratory effort, No retractions, No use of accessory muscles and clear to auscultation bilaterally EFFORT & INSPECTION: Yes symmetric chest movement AUSCULTATION: clear to auscultation bilaterally Cardio: COMMON NORMALS: regular rate, regular rhythm, S1 normal heart sound present, S2 normal heart sound present, No gallops present (Cardio), No clicks present (Cardio), No murmurs present (Cardio) and No rub (Cardio) RATE: regular rate RHYTHM: regular rhythm HEART SOUNDS: S1 normal heart sound present and S2 normal heart sound present PERIPHERAL PULSES: radial pulses present GI: COMMON NORMALS: Normal to inspection, nondistended, normoactive bowel sounds present, Soft to palpation and non-tender PALPATION: Yes Soft to palpation Extremity: COMMON NORMALS: no calf tenderness and no pedal edema Neuro: COMMON NORMALS: patient oriented x3, moves all extremities and gait normal SENSORIUM/ORIENTATION: Yes oriented to person, Yes oriented to place and Yes oriented to time Psych: COMMON NORMALS: mental status grossly normal, cooperative, speech normal, activity/motor behavior normal, denies homicidal ideation and denies suicidal ideation SPEECH: Yes normal speech Skin: COMMON NORMALS: no rashes or lesions noted, no wounds and no jaundice GENERAL SKIN EXAM: no rashes or lesions noted Course Vital Signs: Vital signs: Vital Signs Temperature 98.2 F 03/26/25 18:03 Pulse Rate 76 03/26/25 20:09 Respiratory Rate 16 03/26/25 20:09 Blood Pressure 123/97 03/26/25 20:09 Pulse Oximetry 98 03/26/25 20:09 Oxygen Delivery Me thod Room Air 03/26/25 19:16 MDM - Chest Pain Medical Decision Making Patient is 49-year-old gentleman with history of MINOCA, reports to the emergency room with left chest pressure. This is consistent with costochondritis. Workup is negative. This occurred greater than 4 hours ago, and therefore troponin initially is stable and can be excepted as is. Chest x-ray is negative. No other red flags. Patient states compliance to Plavix, and aspirin. He did receive aspirin here as well. Recommendations given to patient with Lidoderm, heat, and return to the ED with ongoing chest pain issues. Wells PE score 0. Medical Records I reviewed the patient's medical records. Lab Data I reviewed the patient's lab results. 03/26/25 18:43 03/26/25 18:43 Radiology Impressions Chest X-Ray 03/26/25 18:18 IMPRESSION: No acute findings. Laboratory Results WBC 8.74 10^3/uL (3.29-11.43) 03/26/25 18:43 RBC 5.12 10^6/uL (3.85-5.65) 03/26/25 18:43 Hgb 15.40 g/dL (11.27-16.99) 03/26/25 18:43 Hct 47.4 % (37-53) 03/26/25 18:43 MCV 92.6 fl (82-101) 03/26/25 18:43 MCH 30.1 pg (27-33) 03/26/25 18:43 MCHC 32.5 g/dL (30-55) 03/26/25 18:43 RDW 14.1 % (12.1-15.1) 03/26/25 18:43 Plt Count 201 10^3/cmm (157-399) 03/26/25 18:43 MPV 9.0 fL (7.4-10.4) 03/26/25 18:43 Neut % (Auto) 59.7 % 03/26/25 18:43 Lymph % (Auto) 27.8 % 03/26/25 18:43 [place] % (Auto) 8.8 % 03/26/25 18:43 Eos % (Auto) 2.7 % 03/26/25 18:43 Baso % (Auto) 0.7 % 03/26/25 18:43 Neut # (Auto) 5.21 10^3/uL (1.8-7.7) 03/26/25 18:43 Lymph # (Auto) 2.4 10^3/uL (0.8-4.8) 03/26/25 18:43 [place] # (Auto) 0.8 10^3/uL (0.2-0.9) 03/26/25 18:43 Eos # (Auto) 0.2 10^3/uL (0.0-0.8) 03/26/25 18:43 Baso # (Auto) 0.1 10^3/uL (0.0-0.1) 03/26/25 18:43 Nucleated RBC % (auto) 0 % 03/26/25 18:43 Nucleated RBCs # 0.0 /100WBC 03/26/25 18:43 Sodium 139 mmol/L (136-145) 03/26/25 18:43 Potassium 3.8 mmol/L (3.5-5.1) 03/26/25 18:43 Chloride 101 mmol/L (98-107) 03/26/25 18:43 Carbon Dioxide 25 mmol/L (22-29) 03/26/25 18:43 Anion Gap 16.8 (5-19) 03/26/25 18:43 BUN 7 mg/dL (6-20) 03/26/25 18:43 Creatinine 1.2 mg/dL (0.7-1.2) 03/26/25 18:43 GFR Calculation 64.4 mL/min (90-130) L 03/26/25 18:43 Glucose 88 mg/dL (65-115) 03/26/25 18:43 Calculated Osmolality 285 mOsm/kg (285-295) 03/26/25 18:43 Calcium 8.6 mg/dL (8.5-10.5) 03/26/25 18:43 Total Bilirubin 0.8 mg/dL (0.15-1.2) 03/26/25 18:43 AST 25 U/L (0-40) 03/26/25 18:43 ALT 28 U/L (0-41) 03/26/25 18:43 Alkaline Phosphatase 187 U/L (40-130) H 03/26/25 18:43 Troponin T Baseline < 6 ng/L (0-15) 03/26/25 18:43 NT-Pro-B Natriuret Pep 205 pg/mL (0-125) H 03/26/25 18:43 Total Protein 6.8 g/dL (6.6-8.7) 03/26/25 18:43 Albumin 4.0 g/dL (3.5-5.2) 03/26/25 18:43 Globulin 2.8 g/dL (1.3-4.6) 03/26/25 18:43 Lipase 36 U/L (13-60) 03/26/25 18:43 All radiology interpretation(s) finalized by discharge Discharge Plan Discharge Patient Disposition: Home Clinical Impression: Atypical chest pain, Acute costochondritis Condition: Stable Prescriptions: No Action sertraline 50 mg tablet 50 mg PO DAILY Qty: 90 0RF esomeprazole magnesium [Nexium] 20 mg Capsule,Delayed Release(Dr/Ec) 40 mg PO QAM aspirin 81 mg capsule 81 mg PO DAILY Qty: 90 0RF atorvastatin 40 mg Tablet 40 mg PO BEDTIME Qty: 90 0RF clopidogrel 75 mg Tablet 75 mg PO DAILY Qty: 90 0RF nitroglycerin 0.4 mg Tablet, Sublingual 0.4 mg sublingual Q5M PRN (Reason: Chest Pain) Qty: 25 0RF losartan 50 mg tablet 100 mg PO DAILY metoprolol tartrate 25 mg Tablet 25 mg PO BID@0900,2100 Qty: 90 0RF Discharge Orders: Discharge ED (Routine); Ordered 03/26/25 Ordered By: Brigitte Rodriguez Referrals: Wilbur Rojas PA [Primary Care Provider, Unknown] Discharge Diet: Low Salt Discharge Activity: Resume usual activity Patient Instructions: Costochondritis (ED), Patient Portal & Janeen Instructions Activity Restrictions/Additional Instructions: - Anti-inflammatories are recommended for the inflammation of your chest. Tylenol will suffice as well or you can take them together which can help. - Deep breathing exercises will help with this issue - Return to ED if you have worsening chest pain. -Obtain Lidoderm patches in place on this area in your chest. -You may use heat as well that can help Thank you for choosing [facility] for your healthcare needs today. You have been screened and evaluated and felt safe for discharge. Health conditions do change or evolve sometimes and as such it is important that you follow up with your Primary Doctor to be re checked, 3-5 days is a general good time frame for follow up. 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
[2025-03-26 18:51] LABS: Hematocrit 47.4 % (37-53); Hemoglobin 15.40 g/dL (11.27-16.99); Mean Corpuscular HGB Conc 32.5 g/dL (30-55); Mean Corpuscular Hemoglobin 30.1 pg (27-33); Mean Corpuscular Volume 92.6 fl (82-101); Nucleated Red Blood Cells % 0 %; Platelet Count 201 10^3/cmm (157-399); Red Blood Count 5.12 10^6/uL (3.85-5.65); White Blood Count 8.74 10^3/uL (3.29-11.43)
[2025-03-26 19:16] VITALS: BP 123/97; PULSE 94; O2SAT 97
[2025-03-26 19:19] LABS: Troponin(5th) Baseline < 6 ng/L (0-15)
[2025-03-26 19:29] LABS: Alanine Aminotransferase 28 U/L (0-41); Albumin Level 4.0 g/dL (3.5-5.2); Alkaline Phosphatase 187 U/L (40-130); Anion Gap 16.8 (5-19); Aspartate Amino Transferase 25 U/L (0-40); Blood Urea Nitrogen 7 mg/dL (6-20); Calcium 8.6 mg/dL (8.5-10.5); Carbon Dioxide 25 mmol/L (22-29); Chloride 101 mmol/L (98-107); Globulin 2.8 g/dL (1.3-4.6); Glucose 88 mg/dL (65-115); Lipase 36 U/L (13-60); NT Pro B Type Natriuretic Pept 205 pg/mL (0-125); Osmolality Calculated 285 mOsm/kg (285-295); Potassium 3.8 mmol/L (3.5-5.1); Sodium 139 mmol/L (136-145); Total Protein 6.8 g/dL (6.6-8.7)
[2025-03-26] MEDS: orphenadrine 30 mg/mL Inj 2 mL IVP (20:06)
[2025-03-26 20:09] VITALS: BP 123/97; PULSE 76; RESP 16; O2SAT 98
== END 2025-03-26 20:10 | disposition home or self-care (01) ==
PROVIDERS: Emergency Provider Physician Assistant; PCP Physician Assistant Medical
DX: R07.89 Other chest pain (principal); M94.0 Chondrocostal junction syndrome [Tietze]; Z79.02 Long term (current) use of antithrombotics/antiplatelets; Z79.82 Long term (current) use of aspirin; Z87.891 Personal history of nicotine dependence
CPT/HCPCS: 36415; 71045; 80053; 83690; 83880; 84484; 85025; 93005; 96374; 96375; 99285; J1885; J2360; J9999